=== PATIENT | male | born 1960 | race African-American/Black ===

== ENCOUNTER 2019-05-31 11:50 | Inpatient (IN) | payer BC ==
--- NOTE | 2019-05-31 12:35 | ED ---
General Adult HPI - General Chief complaint: Psychiatric Symptoms Stated complaint: EPS eval Time Seen by Provider: 05/31/19 11:53 Source: patient, family, EMS Mode of arrival: EMS Limitations: altered mental status - History of Present Illness Initial comments: Dictation was produced using [employer] dictation software. please excuse any grammatical, word or spelling errors. Chief Complaint: 58-year-old male comes in for psychiatric symptoms. History of Present Illness: 58-year-old male he was seen at outpatient clinic. The initial reason for his visit was for diabetes evaluation. Patient has rambling speech however according to the care of an urgent care patient expressed suicidal ideation. Patient denies any suicidal ideation at this time. She denies any psychiatric disease. However he has been evaluated for similar issue in the past. Patient is an unreliable historian at this time. He was sent here from [facility]. Patient has any medical complaints at this time. The ROS documented in this emergency department record has been reviewed and confirmed by me. Those systems with pertinent positive or negative responses have been documented in the HPI. All other systems are other negative and/or noncontributory. PHYSICAL EXAM: General Impression: Alert and oriented x3, not in acute distress HEENT: Normocephalic atraumatic, extra-ocular movements intact, pupils equal and reactive to light bilaterally, mucous membranes moist. Cardiovascular: Heart regular rate and rhythm, S1&S2 audible, no murmurs, rubs or gallops Chest: Lungs clear to auscultation bilaterally, no rhonchi, no wheeze, no rales Abdomen: Bowel sounds present, abdomen soft, non-tender, non-distended, no organomegaly Musculoskeletal: Pulses present and equal in all extremities, no peripheral edema Motor: no focal deficits noted Neurological: CN II-XII grossly intact, no focal motor or sensory deficits noted Skin: Intact with no visualized rashes Psych: Tangential speech ED course: 58 y Old male presents with chief complaint of suicidal ideation. Vital signs upon arrival shows heart rate of 122, rest of vital signs within acceptable limits. Physical examination concerning for psychotic symptoms. EPS requested CT imaging of the head. CT is unremarkable. Labs are grossly unremarkable. There is mild anion gap acidosis likely secondary to dehydration. Patient given intravenous fluids. Patient will be admitted to inpatient psych EPS recognition's. - Related Data Home Medications Medication Instructions Recorded Confirmed Atorvastatin [Lipitor] 40 mg PO DAILY 05/31/19 05/31/19 Dulaglutide [Trulicity] 1.5 mg SQ Q7D 05/31/19 05/31/19 Empagliflozin [Jardiance] 25 mg PO DAILY 05/31/19 05/31/19 Lisinopril 40 mg PO DAILY 05/31/19 05/31/19 Pioglitazone [Actos] 30 mg PO DAILY 05/31/19 05/31/19 Warfarin Sodium [Coumadin] 10 mg PO DAILY 05/31/19 05/31/19 metFORMIN HCL [Glucophage] 1,000 mg PO BID 05/31/19 05/31/19 Allergies Allergy/AdvReac Type Severity Reaction Status Date / Time No Known Allergies Allergy Verified 05/31/19 14:47 Review of Systems ROS Statement: Those systems with pertinent positive or pertinent negative responses have been documented in the HPI. ROS Other: All systems not noted in ROS Statement are negative. Past Medical History Past Medical History: Diabetes Mellitus General Exam Limitations: altered mental status Course Vital Signs 05/31/19 11:56 Temperature 97.8 F Pulse Rate 122 H Respiratory 22 Rate Blood Pressure 135/120 O2 Sat by Pulse 98 Oximetry Medical Decision Making - Lab Data Result diagrams: 05/31/19 15:00 05/31/19 15:00 Lab Results 05/31/19 05/31/19 05/31/19 Range/Units 12:20 12:55 15:00 WBC (3.8-10.6) k/uL RBC (4.30-5.90) m/uL Hgb (13.0-17.5) gm/dL Hct (39.0-53.0) % MCV (80.0-100.0) fL MCH (25.0-35.0) pg MCHC (31.0-37.0) g/dL RDW (11.5-15.5) % Plt Count (150-450) k/uL Neutrophils % % Lymphocytes % % Monocytes % % Eosinophils % % Basophils % % Neutrophils # (1.3-7.7) k/uL Lymphocytes # (1.0-4.8) k/uL Monocytes # (0-1.0) k/uL Eosinophils # (0-0.7) k/uL Basophils # (0-0.2) k/uL Sodium 139 (137-145) mmol/L Potassium 4.2 (3.5-5.1) mmol/L Chloride 104 (98-107) mmol/L Carbon Dioxide 19 L (22-30) mmol/L Anion Gap 16 mmol/L BUN 22 H (9-20) mg/dL Creatinine 1.03 (0.66-1.25) mg/dL Est GFR (CKD-EPI)AfAm >90 (>60 ml/min/1.73 sqM) Est GFR (CKD-EPI)NonAf 79 (>60 ml/min/1.73 sqM) Glucose 167 H (74-99) mg/dL POC Glucose (mg/dL) 200 H (75-99) mg/dL POC Glu Th[employer]eder Krupa Brewster Calcium 10.2 (8.4-10.2) mg/dL Total Bilirubin 0.7 (0.2-1.3) mg/dL AST 30 (17-59) U/L ALT 12 (4-49) U/L Alkaline Phosphatase 112 (38-126) U/L Total Protein 8.7 H (6.3-8.2) g/dL Albumin 4.9 (3.5-5.0) g/dL Urine Opiates Screen Not Detected (NotDetected) Ur Oxycodone Screen Not Detected (NotDetected) Urine Methadone Screen Not Detected (NotDetected) Ur Propoxyphene Screen Not Detected (NotDetected) Ur Barbiturates Screen Not Detected (NotDetected) U Tricyclic Antidepress Not Detected (NotDetected) Ur Phencyclidine Scrn Not Detected (NotDetected) Ur Amphetamines Screen Not Detected (NotDetected) U Methamphetamines Scrn Not Detected (NotDetected) U Benzodiazepines Scrn Detected H (NotDetected) Urine Cocaine Screen Not Detected (NotDetected) U Marijuana (THC) Screen Not Detected (NotDetected) Serum Alcohol <10 mg/dL 05/31/19 Range/Units 15:00 WBC 8.5 (3.8-10.6) k/uL RBC 5.46 (4.30-5.90) m/uL Hgb 15.7 (13.0-17.5) gm/dL Hct 49.1 (39.0-53.0) % MCV 89.9 (80.0-100.0) fL MCH 28.7 (25.0-35.0) pg MCHC 31.9 (31.0-37.0) g/dL RDW 14.0 (11.5-15.5) % Plt Count 247 (150-450) k/uL Neutrophils % 71 % Lymphocytes % 17 % Monocytes % 10 % Eosinophils % 0 % Basophils % 0 % Neutrophils # 6.0 (1.3-7.7) k/uL Lymphocytes # 1.5 (1.0-4.8) k/uL Monocytes # 0.8 (0-1.0) k/uL Eosinophils # 0.0 (0-0.7) k/uL Basophils # 0.0 (0-0.2) k/uL Sodium (137-145) mmol/L Potassium (3.5-5.1) mmol/L Chloride (98-107) mmol/L Carbon Dioxide (22-30) mmol/L Anion Gap mmol/L BUN (9-20) mg/dL Creatinine (0.66-1.25) mg/dL Est GFR (CKD-EPI)AfAm (>60 ml/min/1.73 sqM) Est GFR (CKD-EPI)NonAf (>60 ml/min/1.73 sqM) Glucose (74-99) mg/dL POC Glucose (mg/dL) (75-99) mg/dL POC Glu Thrasher Feeder ID Calcium (8.4-10.2) mg/dL Total Bilirubin (0.2-1.3) mg/dL AST (17-59) U/L ALT (4-49) U/L Alkaline Phosphatase (38-126) U/L Total Protein (6.3-8.2) g/dL Albumin (3.5-5.0) g/dL Urine Opiates Screen (NotDetected) Ur Oxycodone Screen (NotDetected) Urine Methadone Screen (NotDetected) Ur Propoxyphene Screen (NotDetected) Ur Barbiturates Screen (NotDetected) U Tricyclic Antidepress (NotDetected) Ur Phencyclidine Scrn (NotDetected) Ur Amphetamines Screen (NotDetected) U Methamphetamines Scrn (NotDetected) U Benzodiazepines Scrn (NotDetected) Urine Cocaine Screen (NotDetected) U Marijuana (THC) Screen (NotDetected) Serum Alcohol mg/dL Disposition Clinical Impression: Suicidal ideation Disposition: ADMITTED IP TO THIS HOSP Condition: Fair Referrals: None,Stated [Primary Care Provider] - 1-2 days Decision Time: 17:27
[2019-05-31 12:55] LABS: Amphetamine Screen,Urine Not Detected (NotDetected); Barbiturate Screen,Urine Not Detected (NotDetected); Benzodiazepines Screen,Urine Detected (NotDetected); Cocaine Screen,Urine Not Detected (NotDetected); Methadone Screen, Urine Not Detected (NotDetected); Opiate Screen,Urine Not Detected (NotDetected); Oxycodone Screen, Urine Not Detected (NotDetected); Phencyclidine Screen,Urine Not Detected (NotDetected); Tricyclic Antidepressant,Urine Not Detected (NotDetected); Urn Cannabinoid Scrn Not Detected (NotDetected)
[2019-05-31 12:57] LABS: Glucose,Whole Blood 200 mg/dL (75-99)
--- NOTE | 2019-05-31 15:20 | CT ---
EXAMINATION TYPE: CT brain wo con DATE OF EXAM: 05/31/2019 COMPARISON: January 25, 2011 HISTORY: PSYCHOSIS CT DLP: 1131.[address] of the brain was performed. The ventricles, basal cisterns and sulci overlying the cerebral convexities demonstrate mild enlargem ent. There is no evidence for intracranial hemorrhage or sulcal effacement. There is decreased attenuation about the periventricular white matter and deep white matter of both c erebral hemispheres, compatible with chronic small vessel ischemia. Differential diagnosis does inclu de demyelination. No mass effects are seen.No midline shift. Osseous calvarium is intact. If symptoms persist consider MRI. IMPRESSION: 1. Age related atrophic and chronic small vessel ischemic change without acute intracranial process s een at this time.
[2019-05-31 15:26] LABS: Basophils % (A) 0 %; Eosinophils % (A) 0 %; HCT 49.1 % (39.0-53.0); HGB 15.7 gm/dL (13.0-17.5); Lymphocytes # (A) 1.5 k/uL (1.0-4.8); Lymphocytes % (A) 17 %; MCH 28.7 pg (25.0-35.0); MCHC 31.9 g/dL (31.0-37.0); MCV 89.9 fL (80.0-100.0); Mean Platelet Volume 6.9; Monocytes # (A) 0.8 k/uL (0-1.0); Monocytes % (A) 10 %; Neutrophils % (A) 71 %; Platelet Count 247 k/uL (150-450); RBC 5.46 m/uL (4.30-5.90); WBC 8.5 k/uL (3.8-10.6)
[2019-05-31 15:36] LABS: ALT 12 U/L (4-49); AST 30 U/L (17-59); African American GFR (CKD) >90 (>60 ml/min/1.73 sqM); Albumin 4.9 g/dL (3.5-5.0); Alcohol <10 mg/dL; Alkaline Phosphatase 112 U/L (38-126); Anion Gap 16 mmol/L; Blood Urea Nitrogen 22 mg/dL (9-20); Calcium 10.2 mg/dL (8.4-10.2); Carbon Dioxide 19 mmol/L (22-30); Chloride 104 mmol/L (98-107); Glucose 167 mg/dL (74-99); Non-African American GFR(CKD) 79 (>60 ml/min/1.73 sqM); Potassium 4.2 mmol/L (3.5-5.1); Sodium 139 mmol/L (137-145); Total Bilirubin 0.7 mg/dL (0.2-1.3); Total Protein 8.7 g/dL (6.3-8.2)
[2019-05-31] MEDS ORDERED: SODIUM CHLORIDE 0.9% 1,000 ML IV STA (15:42)
[2019-05-31] MEDS ORDERED: MAGNESIUM HYDROXIDE 2,400 MG/10 ML CUP PO PRN (22:03)
[2019-05-31] MEDS ORDERED: ACETAMINOPHEN TAB 325 MG TAB PO PRN (22:03)
[2019-05-31] MEDS ORDERED: MAG HYDROX/AL HYDROX/SIMETH 30 ML CUP PO PRN (22:03)
[2019-06-01] MEDS: OLANZapine 10 MG VIAL IM PRN (01:00)
--- NOTE | 2019-06-01 01:15 | P.CONS ---
History of Present Illness - Reason for Consult Consult date: 06/01/19 - History of Present Illness The patient is a 58 yo M with a PMH of Type 2 DM who presented to the ED from the outpatient clinic for reported suicidal ideation. The patient was noted to be in psychosis in the ED and was admitted to the MHU. The patient was seen and evaluated at the MHU by his bedside. The patient was in acute psychosis with very disorganized and paranoid though process. He answered questions briefly aft er multiple attempts at redirecting. He reported chronic shoulder and lower back pain but denied any additional complaints. Patient underwent an extensive evaluation in the ED w/ CT brain that was unremarkable and a UTox positive for benzo with EtOH negative. Remaining laboratory evaluation revealed WBC count 8.5, gb 15.7, Na 139, K 4.2, BUN 22, Cr 1.03. Review of Systems Pertinent positives and negatives as discussed in HPI, a complete review of systems was performed and all other systems are negative. Past Medical History Past Medical History: Diabetes Mellitus Medications and Allergies Home Medications Medication Instructions Recorded Confirmed Type Atorvastatin [Lipitor] 40 mg PO DAILY 05/31/19 05/31/19 History Dulaglutide [Trulicity] 1.5 mg SQ Q7D 05/31/19 05/31/19 History Empagliflozin [Jardiance] 25 mg PO DAILY 05/31/19 05/31/19 History Lisinopril 40 mg PO DAILY 05/31/19 05/31/19 History Pioglitazone [Actos] 30 mg PO DAILY 05/31/19 05/31/19 History Warfarin Sodium [Coumadin] 10 mg PO DAILY 05/31/19 05/31/19 History metFORMIN HCL [Glucophage] 1,000 mg PO BID 05/31/19 05/31/19 History Allergies Allergy/AdvReac Type Severity Reaction Status Date / Time No Known Allergies Allergy Verified 05/31/19 22:57 Physical Exam Vitals: Vital Signs Temp Pulse Pulse Resp BP BP BP 05/31/19 21:43 97.8 F 89 18 143/99 05/31/19 21:40 97.7 F 122 H 18 134/90 05/31/19 21:19 123 H 18 135/93 05/31/19 20:01 16 144/110 05/31/19 15:00 89 18 05/31/19 11:56 97.8 F 122 H 22 135/120 Pulse Ox 05/31/19 21:43 96 05/31/19 21:40 97 05/31/19 21:19 96 05/31/19 20:01 98 05/31/19 15:00 96 05/31/19 11:56 98 Intake and Output 05/31/19 05/31/19 06/01/19 14:59 22:59 06:59 Other: Weight 97.522 kg General: non toxic, no distress, appears at stated age, obese Derm: hyperpigmented and dry skin with silverish plaques over medial aspect of legs bilaterally, warm, dry Head: atraumatic, normocephalic, symmetric Eyes: EOMI, anicteric sclera, pupils equal round reactive to light ENT: Nose and ears atraumatic, no thrush, no pharyngeal erythema Mouth: no lip lesion, mucus membranes moist Cardiovascular: S1S2 reg, tachycardic, no murmur, positive posterior tibial pulse bilateral, no edema, capillary refill less than 2 seconds Lungs: CTA bilateral, no rhonchi, no rales , no accessory muscle use Abdominal: soft, nontender to palpation, no guarding, no appreciable organomegaly, normal bowel sounds Ext: no gross muscle atrophy, muscle strength 5 out of 5 in all 4 extremities grossly, no contractures, Neuro: Unable to perform neuro examination since patient not following all commands Psych: Disorganized thought process with tangentiality and flight of ideas, unable to follow all commands Results CBC & Chem 7: 05/31/19 15:00 05/31/19 15:00 Labs: Abnormal Lab Results - Last 24 Hours (Table) 05/31/19 05/31/19 05/31/19 Range/Units 12:20 12:55 15:00 Carbon Dioxide 19 L (22-30) mmol/L BUN 22 H (9-20) mg/dL Glucose 167 H (74-99) mg/dL POC Glucose (mg/dL) 200 H (75-99) mg/dL Total Protein 8.7 H (6.3-8.2) g/dL U Benzodiazepines Scrn Detected H (NotDetected) Assessment and Plan Plan: Type 2 DM -LSS with blood glucose monitoring -Will start Levemir 10 U qhs -Hold oral and injectable home med for now Coumadin use as per history -Patient unable to specify reason with no additional PMH listed -C/w Coumadin for now -Attempt to obtain collateral information HTN -C/w home meds Psychosis -As per psychiatry Thank you for allowing us to participate in the care of this patient. We will follow peripherally. Do not hesitate to contact us with questions. Someone can be reached from the [facility] hospitalist group at all hours of the day at [phone].
[2019-06-01 07:56] LABS: Glucose,Whole Blood 115 mg/dL (75-99)
[2019-06-01] MEDS: INSULIN ASPART (NovoLOG) 100 UNIT/ML VIAL SQ SCH ×3 (08:05→17:47)
[2019-06-01] MEDS: ATORVASTATIN 40 MG TAB PO SCH (08:06)
[2019-06-01] MEDS: LISINOPRIL 20 MG TAB PO SCH (08:06)
[2019-06-01] MEDS: EMPAGLIFLOZIN 25 MG PO SCH (08:06)
[2019-06-01] MEDS ORDERED: PIOGLITAZONE 30 MG TAB PO SCH (09:00)
[2019-06-01] MEDS ORDERED: metFORMIN 500 MG TAB PO SCH (09:00)
[2019-06-01 09:37] LABS: Prothrombin Time 10.7 sec (9.0-12.0)
[2019-06-01] MEDS ORDERED: OLANZapine 10 MG VIAL IM STA (12:34)
[2019-06-01 12:42] LABS: Glucose,Whole Blood 152 mg/dL (75-99)
--- NOTE | 2019-06-01 14:50 | P.HP ---
Psychiatric H&P - . H&P Date: 06/01/19 History & Physical: DATE OF SERVICE: [06/01/2019] IDENTIFYING DATA: This patient is a [58]-year-old single male who was admitted to the mental health unit through ER. HISTORY OF PRESENT ILLNESS: History of Present Illness The patient is a 58 yo M with a PMH of Type 2 DM who presented to the ED from the outpatient clinic for reported suicidal ideation. The patient was noted to be in psychosis in the ED and was admitted to the MHU. The patient was seen and evaluated at the MHU. The patient was in acute psychosis with very disorganized and paranoid though process. He answered questions briefly after multiple attempts at redirecting. He reported chronic shoulder and lower back pain but denied any additional complaints. Patient underwent an extensive evaluation in the ED w/ CT brain that was unremarkable and a UTox positive for benzo with EtOH negative. The patient is a poor historian and limited information was available in the EMR. The patient was not able to answer any questions appropriately and had tangential and rambling speech with some intake echolalia. The patient appears to be very confused and is easily agitated and difficult to redirect. The patient reports poor sleep but could not elaborate. He denies any auditory or visual hallucination but appears to be responding to internal cues and has been talking to himself. The patient denies any active suicidal or homicidal ideations at this time. PAST PSYCHIATRIC HISTORY: . Past hospitalizations: The patient reports that he was hospitalized once before in the past but could not elaborate Suicidal attempts: The patient reports history of fund previous suicidal attempt by overdose in the past but could not elaborate anymore Medications: Unknown PAST MEDICAL HISTORY: [Diabetes mellitus type 2, chronic shoulder and lower back pain]. ALLERGIES: [No known drug allergies]. CHEMICAL DEPENDENCY HISTORY: [Unknown although the drug screen was positive for benzodiazepines but negative for everything else]. Rehab: Unknown FAMILY PSYCHIATRIC HISTORY: [Unknown]. FAMILY CHEMICAL DEPENDENCY HISTORY:[ Unknown]. LEGAL HISTORY: Unknown . SOCIAL HISTORY: The patient reports living by himself and mentioned his sister but was not able to give any more information.. MENTAL STATUS EXAM: [The patient is a 58 years or Afro-[place] male was confused and disoriented to time and place but was able to tell his name. The patient what appeared to be hyperverbal and has rapid rambling and tangential in speech. He shows echolalia. He had poor eye contact. He appears to be restless and shows some psychomotor agitation during the interview. The patient denies any auditory or visual hallucinations but appears to be responding to internal cues and appears very preoccupied. The patient denies any active suicidal or homicidal ideations at this time the patient showed poor concentration and short attention span. The patient shows lack of insight and impaired judgment.]. IMPRESSIONS: Psychosis NOS PLAN: []. Admit to the mental health unit. At this time patient continues to meet the criteria for inpatient psychiatric admission. The patient signed for voluntary admission. Placed on suicidal precautions 1:1 support and psychotherapy Start [Zyprexa situs 5 mg by mouth twice a day. The patient was also placed on Zyprexa\injectable 5 mg IM twice a day when necessary. The patient was informed on the risks benefits and side effects of the medication and verbally consented to taking the medications. He signed a med consent form that were placed in the chart. NRT not needed since the patient is not a smoker. Social work on board for discharge planning. We'll attempt to contact family and the patient with patient's permission to get more information and history. Consult was placed for pleater for history and physical..] Milieu therapy including PT, OT and GT. Adjust medications and monitor closely for the patient's symptoms getting worse and /or possible side effects on medications. Allergies Allergy/AdvReac Type Severity Reaction Status Date / Time No Known Allergies Allergy Verified 05/31/19 22:57 Vital Signs Temp 97.8 F 05/31/19 21:43 Pulse 99 06/01/19 08:00 Resp 18 06/01/19 08:00 BP 132/95 06/01/19 08:00 Pulse Ox 96 05/31/19 21:43 Intake & Output 05/31/19 06/01/19 06/01/19 18:59 06:59 18:59 Weight 97.522 kg Laboratory Last Values WBC 8.5 k/uL (3.8-10.6) 05/31/19 15:00 RBC 5.46 m/uL (4.30-5.90) 05/31/19 15:00 Hgb 15.7 gm/dL (13.0-17.5) 05/31/19 15:00 Hct 49.1 % (39.0-53.0) 05/31/19 15:00 MCV 89.9 fL (80.0-100.0) 05/31/19 15:00 MCH 28.7 pg (25.0-35.0) 05/31/19 15:00 MCHC 31.9 g/dL (31.0-37.0) 05/31/19 15:00 RDW 14.0 % (11.5-15.5) 05/31/19 15:00 Plt Count 247 k/uL (150-450) 05/31/19 15:00 Neutrophils % 71 % 05/31/19 15:00 Lymphocytes % 17 % 05/31/19 15:00 Monocytes % 10 % 05/31/19 15:00 Eosinophils % 0 % 05/31/19 15:00 Basophils % 0 % 05/31/19 15:00 Neutrophils # 6.0 k/uL (1.3-7.7) 05/31/19 15:00 Lymphocytes # 1.5 k/uL (1.0-4.8) 05/31/19 15:00 Monocytes # 0.8 k/uL (0-1.0) 05/31/19 15:00 Eosinophils # 0.0 k/uL (0-0.7) 05/31/19 15:00 Basophils # 0.0 k/uL (0-0.2) 05/31/19 15:00 PT 10.7 sec (9.0-12.0) 06/01/19 08:35 INR 1.0 (<1.2) 06/01/19 08:35 Sodium 139 mmol/L (137-145) 05/31/19 15:00 Potassium 4.2 mmol/L (3.5-5.1) 05/31/19 15:00 Chloride 104 mmol/L (98-107) 05/31/19 15:00 Carbon Dioxide 19 mmol/L (22-30) L 05/31/19 15:00 Anion Gap 16 mmol/L 05/31/19 15:00 BUN 22 mg/dL (9-20) H 05/31/19 15:00 Creatinine 1.03 mg/dL (0.66-1.25) 05/31/19 15:00 Est GFR (CKD-EPI)AfAm >90 (>60 ml/min/1.73 sqM) 05/31/19 15:00 Est GFR (CKD-EPI)NonAf 79 (>60 ml/min/1.73 sqM) 05/31/19 15:00 Glucose 167 mg/dL (74-99) H 05/31/19 15:00 POC Glucose (mg/dL) 115 mg/dL (75-99) H 06/01/19 07:54 POC Glu [place] [employer] Member ID Indira English 06/01/19 07:54 Calcium 10.2 mg/dL (8.4-10.2) 05/31/19 15:00 Total Bilirubin 0.7 mg/dL (0.2-1.3) 05/31/19 15:00 AST 30 U/L (17-59) 05/31/19 15:00 ALT 12 U/L (4-49) 05/31/19 15:00 Alkaline Phosphatase 112 U/L (38-126) 05/31/19 15:00 Total Protein 8.7 g/dL (6.3-8.2) H 05/31/19 15:00 Albumin 4.9 g/dL (3.5-5.0) 05/31/19 15:00 Triglycerides 85 mg/dL (<150) 06/01/19 08:35 Cholesterol 238 mg/dL (<200) H 06/01/19 08:35 LDL Cholesterol, Calc 157 mg/dL (0-99) H 06/01/19 08:35 HDL Cholesterol 64 mg/dL (40-60) H 06/01/19 08:35 TSH 1.270 mIU/L (0.465-4.680) 06/01/19 08:35 Urine Opiates Screen Not Detected (NotDetected) 05/31/19 12:20 Ur Oxycodone Screen Not Detected (NotDetected) 05/31/19 12:20 Urine Methadone Screen Not Detected (NotDetected) 05/31/19 12:20 Ur Propoxyphene Screen Not Detected (NotDetected) 05/31/19 12:20 Ur Barbiturates Screen Not Detected (NotDetected) 05/31/19 12:20 U Tricyclic Antidepress Not Detected (NotDetected) 05/31/19 12:20 Ur Phencyclidine Scrn Not Detected (NotDetected) 05/31/19 12:20 Ur Amphetamines Screen Not Detected (NotDetected) 05/31/19 12:20 U Methamphetamines Scrn Not Detected (NotDetected) 05/31/19 12:20 U Benzodiazepines Scrn Detected (NotDetected) H 05/31/19 12:20 Urine Cocaine Screen Not Detected (NotDetected) 05/31/19 12:20 U Marijuana (THC) Screen Not Detected (NotDetected) 05/31/19 12:20 Serum Alcohol <10 mg/dL 05/31/19 15:00 06/01/19 12:30 06/01/19 14:25 06/01/19 14:36 06/01/19 14:40
[2019-06-01 17:52] LABS: Hemoglobin A1C 8.4 % (4.0-6.0)
[2019-06-01 17:53] LABS: Glucose,Whole Blood 137 mg/dL (75-99)
[2019-06-01] MEDS ORDERED: WARFARIN 5 MG TAB PO ONE (18:00)
[2019-06-01 20:18] LABS: Glucose,Whole Blood 134 mg/dL (75-99)
[2019-06-01] MEDS: INSULIN DETEMIR (LEVEMIR) 100 UNIT/ML SYR SQ SCH (20:27)
[2019-06-01] MEDS: OLANZapine ODT 10 MG TAB PO SCH (20:27)
[2019-06-02 07:52] LABS: Glucose,Whole Blood 160 mg/dL (75-99)
[2019-06-02 08:20] LABS: Prothrombin Time 10.5 sec (9.0-12.0)
[2019-06-02] MEDS: INSULIN ASPART (NovoLOG) 100 UNIT/ML VIAL SQ SCH ×3 (08:20→18:51)
[2019-06-02] MEDS: LISINOPRIL 20 MG TAB PO SCH (09:53)
[2019-06-02] MEDS: ATORVASTATIN 40 MG TAB PO SCH (09:53)
[2019-06-02] MEDS: EMPAGLIFLOZIN 25 MG PO SCH (09:54)
[2019-06-02 12:53] LABS: Glucose,Whole Blood 137 mg/dL (75-99)
--- NOTE | 2019-06-02 13:01 | P.PN ---
Subjective Progress Note Date: 06/02/19 Chief complaint: "Ready to go home" Subjective: The patient has been seen today as follow-up, chart reviewed, case discussed with the treatment team. The patient reports of feeling better today. He remai anushka confused and disoriented and has difficulty carrying on conversations. The patient reports good sleep last night and reports good appetite. Patient has been going to selected groups and other unit activities. His speech remained tangential and rapid but is a little more redirectable than yesterday. The patient is alert and oriented to self and time and date but thought that he was locked up and was behind bars. He admitted to auditory hallucinations described as guarded whispering in his years. He denies any active suicidal or homicidal ideations at this time. He remains delusional and paranoid but could not specify. The patient has been more redirectable and does not need one to one anymore. The patient is compliant with his medications and denies any adverse reactions. Objective - Vital Signs Vital signs: Vital Signs Temp 98.7 F 06/02/19 09:56 Pulse 107 H 06/02/19 09:56 Resp 18 06/02/19 09:56 BP 130/87 06/02/19 09:56 Pulse Ox 96 05/31/19 21:43 - Exam Objective: Vitals has been reviewed. Mental status examination; Appearance: The patient appears stated age, adequately groomed and dressed, Gait/posture: Normal gait, Normal arm swinging: No abnormal movements. Attitude and behavior: Pleasant and cooperative and has good eye contact Motor activity: Show psychomotor agitation Speech: Rapid and tangential and difficult to redirect. Mood: Good Affect: Expanded Thought form: Disorganized Thought content: Denies any suicidal or homicidal ideations Perception: Denies any visual hallucinations but reports auditory hallucinations Orientation: Patient patient was foriented to time place person. Insight: Patient has poor insight about his psychiatric disorder. Judgment: Patient has impaired judgment about his psychiatric treatment. - Labs CBC & Chem 7: 05/31/19 15:00 05/31/19 15:00 Labs: Abnormal Lab Results - Last 24 Hours (Table) 06/01/19 06/01/19 06/01/19 Range/Units 08:35 17:45 20:16 POC Glucose (mg/dL) 137 H 134 H (75-99) mg/dL Hemoglobin A1c 8.4 H (4.0-6.0) % 06/02/19 Range/Units 07:48 POC Glucose (mg/dL) 160 H (75-99) mg/dL Hemoglobin A1c (4.0-6.0) % Assessment and Plan Assessment: Psychosis NOS Plan: PLAN: []. Admit to the mental health unit. At this time patient continues to meet the criteria for inpatient psychiatric admission. 1:1 support and psychotherapy Continue Zyprexa Zydis 5 mg by mouth twice a day. NRT not needed since the patient is not a smoker. Social work on board for discharge planning. We'll attempt to contact family and the patient with patient's permission to get more information and history. Milieu therapy including PT, OT and GT. Adjust medications and monitor closely for the patient's symptoms getting worse and /or possible side effects on medications.
--- NOTE | 2019-06-02 16:23 | P.CNNES ---
History of Present Illness Consult date: 06/02/19 Requesting physician: Yue Ch Reason for Consult: Altered mental status, no previous history of MH. History of Present Illness: Patient is a 58-year-old male with no significant past psychiatric history, was admitted to mental health unit for suicidal ideation, as a transfer from outpatient [facility]. Patient was noted to have some altered mental status which prompted this neurology consultation. According to the nurse report, patient has been acting psychotic, talking continuously, rambling, speaking tangential. Yesterday he was walking strip naked, ripping stuff from the cuenca, couldn't get redirected. He was talking with word salad, walking and pacing up and down the hallways. Today he appears to be slightly better and was able to provide history. Patient states that he hears voices all the times. When I asked, what does he hear, states to "destroy the planet". He states that he hears his mom's voice every morning which is the gods voice. When he is silent, concentrating on nothing, is fine. He frequently starts talking tangential, with poor content, flight of ideas. He states he has no children. Computed tomography scan of the head showed age-related atrophic and chronic small vessel ischemic changes without acute intracranial process seen at this time. Patient's urine drug screen is positive for benzodiazepine, hemoglobin A1c 8.4. Electrolytes and renal functions are normal. Liver functions normal. Cholesterol is 238, LDL 157, HDL 64. TSH is normal. PT/INR normal. CBC normal. Review of Systems As above. Patient denies any neck pain, back pain, headache, double vision, loss of vision. Denies any numbness tingling focal weakness. Denies chest pain shortness of breath. Past Medical History Past Medical History: Diabetes Mellitus Medications and Allergies Home Medications Medication Instructions Recorded Confirmed Type Atorvastatin [Lipitor] 40 mg PO DAILY 05/31/19 05/31/19 History Dulaglutide [Trulicity] 1.5 mg SQ Q7D 05/31/19 05/31/19 History Empagliflozin [Jardiance] 25 mg PO DAILY 05/31/19 05/31/19 History Lisinopril 40 mg PO DAILY 05/31/19 05/31/19 History Pioglitazone [Actos] 30 mg PO DAILY 05/31/19 05/31/19 History Warfarin Sodium [Coumadin] 10 mg PO DAILY 05/31/19 05/31/19 History metFORMIN HCL [Glucophage] 1,000 mg PO BID 05/31/19 05/31/19 History Allergies Allergy/AdvReac Type Severity Reaction Status Date / Time No Known Allergies Allergy Verified 05/31/19 22:57 Physical Examination - Vital Signs Vital Signs: Vital Signs Temp Pulse Resp BP 06/02/19 09:56 98.7 F 107 H 18 130/87 06/01/19 20:30 80 114/73 On examination patient is a late middle aged [place] male, who appears to be very pleasant, hyperverbal, impaired concentration, attention, often talks tangential, with loose associations, alevism hallucinations. Patient has no aphasia, or dysarthria. He can name and repeat very well. Oriented 3, knows that he is in [facility] in [facility]. He knows it is , May 2019 and that he is in [facility] and the name of the current president. There is no carotid bruit or murmur. No peripheral edema. On cranial ex amination pupils are round and reactive to light, visual morgan are full on confrontation, extraocular muscles intact with no nystagmus. His face is symmetric and tongue protrudes the midline. Palatal elevation and sensation normal. On muscle strength testing there is no drift and the strength is normal in arms and legs. Reflexes are symmetric and plantars downgoing, sensory to touch is equal no neglect. No ataxia for [id number] testing. Tone and bulk of muscles normal. Gait is normal. Results - Laboratory Findings CBC and BMP: 05/31/19 15:00 05/31/19 15:00 Abnormal Lab Findings: Abnormal Labs 05/31/19 05/31/19 05/31/19 12:20 12:55 15:00 Carbon Dioxide 19 L BUN 22 H Glucose 167 H POC Glucose (mg/dL) 200 H Hemoglobin A1c Total Protein 8.7 H Cholesterol LDL Cholesterol, Calc HDL Cholesterol U Benzodiazepines Scrn Detected H 06/01/19 06/01/19 06/01/19 07:54 08:35 08:35 Carbon Dioxide BUN Glucose POC Glucose (mg/dL) 115 H Hemoglobin A1c 8.4 H Total Protein Cholesterol 238 H LDL Cholesterol, Calc 157 H HDL Cholesterol 64 H U Benzodiazepines Scrn 06/01/19 06/01/19 06/01/19 12:40 17:45 20:16 Carbon Dioxide BUN Glucose POC Glucose (mg/dL) 152 H 137 H 134 H Hemoglobin A1c Total Protein Cholesterol LDL Cholesterol, Calc HDL Cholesterol U Benzodiazepines Scrn 06/02/19 06/02/19 07:48 12:46 Carbon Dioxide BUN Glucose POC Glucose (mg/dL) 160 H 137 H Hemoglobin A1c Total Protein Cholesterol LDL Cholesterol, Calc HDL Cholesterol U Benzodiazepines Scrn Assessment and Plan Assessment: * Altered mental status, likely related to acute psychosis. Patient appears to be in a manic stage, with auditory hallucinations, tangential thoughts, flight of ideas. Neurological examination is completely nonfocal. Patient is fully oriented. No signs of encephalopathy. Plan: * Patient's history and examination does not point towards any neurological process. No other neurological workup indicated. * Treatment of psychosis as per patient psychiatrist. * May consider checking for B12, folate, JOHN and RPR. * We will sign off. Please feel free to reconsult neurology if there is any other questions.
[2019-06-02] MEDS: OLANZapine ODT 5 MG TAB PO PRN (17:39)
[2019-06-02 17:43] LABS: Glucose,Whole Blood 185 mg/dL (75-99)
[2019-06-02] MEDS: WARFARIN 7.5 MG TAB PO ONE ×2 (17:43→19:52)
[2019-06-02] MEDS ORDERED: HALOPERIDOL 5 MG TAB PO STA (19:45)
[2019-06-02 20:20] LABS: Glucose,Whole Blood 153 mg/dL (75-99)
[2019-06-02] MEDS: INSULIN DETEMIR (LEVEMIR) 100 UNIT/ML SYR SQ SCH (21:20)
[2019-06-02] MEDS: OLANZapine ODT 10 MG TAB PO SCH (21:21)
[2019-06-02] MEDS ORDERED: diphenhydrAMINE ELIXIR 25 MG/10 ML CUP PO PRN (22:00)
[2019-06-03 07:56] LABS: Glucose,Whole Blood 134 mg/dL (75-99)
[2019-06-03] MEDS: LISINOPRIL 20 MG TAB PO SCH (08:14)
[2019-06-03] MEDS: INSULIN ASPART (NovoLOG) 100 UNIT/ML VIAL SQ SCH ×3 (08:14→18:04)
[2019-06-03] MEDS: EMPAGLIFLOZIN 25 MG PO SCH (08:14)
[2019-06-03] MEDS: ATORVASTATIN 40 MG TAB PO SCH (08:14)
[2019-06-03 09:28] LABS: Prothrombin Time 10.8 sec (9.0-12.0)
[2019-06-03 12:49] LABS: Glucose,Whole Blood 149 mg/dL (75-99)
--- NOTE | 2019-06-03 16:22 | P.PN ---
Progress Note - Text Progress Note Date: 06/03/19 Interval History: Patient was seen taking part in group today and was with a one-to-one sitter and was agreeable to speak to designer writer in the office. Patient appeared to be slightly more organized in his thought process however had a flight of ideas and rambled. Patient also appeared to be intrusive with poor boundaries and took off his socks and laid them on the floor in the office as patient was speaking to designer writer. Patient had multiple thoughts and was illogical at times. Patient was alert and oriented 3 however was not able to spell "world" backwards. He states that he is having poor sleep and having racing thoughts at night. Patient claims to have fair energy good appetite and has been going to groups. He was not able to elaborate on what he is learning the groups. At this time patient denies any suicidal or homical ideations, intent or plan. Patient admitted to auditory hallucinations. He denies any visual hallucinations. Patient denies any side effects from the medications and has been compliant with meds. Patient was agreeable to be started on Depakote at this time. Mental Status Exam: General Appearance: Patient appears to be stated age is alert, pleasant, attempts to cooperate. Patient is in hospital gown and has fair hygiene and grooming. Behavior: Patient is seated without any agitated behavior. Patient is intrusive and inappropriate at times. Speech: Patient's speech is fluent and hyperverbal. Mood/Affect: Mood is improving mildly, affect is congruent Suicidality/Homicidality: Patient denies having any suicidal or homicidal ideation intent or plan. Perceptions: Patient denies any auditory or visual hallucinations. Though content/process: Generally rambled physiological and inappropriate at times. Patient has difficulties with boundaries and is intrusive. Tangential/circumstantial in thought process. Memory and concentration: AOX3, grossly intact for the purposes of this session, could not spell "world" backwards Judgment and insight: Poor, mildly improving Assessment Mood disorder unspecified, rule out due to a general medical condition Plan: -Patient continues to meet criteria for inpatient psychiatric admission for symptom stabilization and safety. Patient has signed adult voluntary form and medication consent and was placed in patient's chart. -At this time patient is exhibiting manic like features including flight of ideas, intrusiveness and hyperverbal speech. -Medications: Will continue with Zyprexa 10 mg daily at bedtime for mood stabilization/psychosis. Will add Depakote ER 500 mg daily at bedtime for mood stabilization with plan to titrate up as needed. -Appreciated neurology recommendations. Will order RPR, B12 and folic acid levels for tomorrow. -Encouraged group participation -CT of the head on admission showed chronic small vessel ischemia. -When necessary Zyprexa IM and PO for agitation/aggression. -NRT -not need this patient does not smoke -SW on board for discharge planning.
[2019-06-03 17:39] LABS: Glucose,Whole Blood 173 mg/dL (75-99)
[2019-06-03] MEDS ORDERED: WARFARIN 7.5 MG TAB PO ONE (18:00)
[2019-06-03 19:55] LABS: Glucose,Whole Blood 211 mg/dL (75-99)
[2019-06-03] MEDS: OLANZapine ODT 10 MG TAB PO SCH (20:01)
[2019-06-03] MEDS: DIVALPROEX ER 500 MG TAB.ER.24H PO SCH (20:01)
[2019-06-03] MEDS: INSULIN DETEMIR (LEVEMIR) 100 UNIT/ML SYR SQ SCH (20:46)
[2019-06-04] MEDS: OLANZapine ODT 5 MG TAB PO PRN (02:19)
[2019-06-04 07:58] LABS: Glucose,Whole Blood 89 mg/dL (75-99)
[2019-06-04] MEDS: INSULIN ASPART (NovoLOG) 100 UNIT/ML VIAL SQ SCH ×3 (08:00→17:53)
[2019-06-04 09:46] LABS: INR 1.1 (<1.2); Prothrombin Time 11.5 sec (9.0-12.0)
[2019-06-04] MEDS: EMPAGLIFLOZIN 25 MG PO SCH (10:04)
[2019-06-04] MEDS: LISINOPRIL 20 MG TAB PO SCH (10:04)
[2019-06-04] MEDS: ATORVASTATIN 40 MG TAB PO SCH (10:04)
--- NOTE | 2019-06-04 11:54 | P.PN ---
Progress Note - Text Progress Note Date: 06/04/19 Interval History: Patient was seen taking part in group today and doing activities and continues to be with a one-to-one sitter. Patient was agreeable to speak to senior copywriter in the office. Patient appeared to have a mildly improved affect and continues to have a flight of ideas and rambling at times. Patient also has been noted to be confabulating according to staff members about different stories from his life. Patient was more directable today and claims that he is trying to interact with others on the unit and been going to groups. Patient had multiple thoughts and was illogical at times however this has improved mildly. Patient was alert and oriented 3 today. He states that he slept better last night and has been taking the Depakote and Zyprexa as ordered. He denies any side effects at this time. Patient claims to have fair energy good appetite. He states that he will be ca lling his family to come and visit him over the weekend. At this time patient denies any suicidal or homical ideations, intent or plan. Patient admitted to auditory hallucinations. He denies any visual hallucinations. Patient denies any side effects from the medications and has been compliant with meds. Mental Status Exam: General Appearance: Patient appears to be stated age is alert, pleasant, attempts to cooperate. Patient is in hospital gown and has fair hygiene and grooming. Behavior: Patient is seated without any agitated behavior. Patient is less intrusive and inappropriate today. Speech: Patient's speech is fluent and hyperverbal. Mood/Affect: Mood is improving mildly, affect is congruent Suicidality/Homicidality: Patient denies having any suicidal or homicidal ideation intent or plan. Perceptions: Patient denies any auditory or visual hallucinations. Though content/process: Generally rambled during conversation. Tangential/circumstantial in thought process. Confabulated. Memory and concentration: AOX3, correctly listed the days of the week backwards, has fair fund of knowledge, improving judgment/abstraction. 2 out of 3 words in memory recall after 5 minutes. Was noted to perseverate during cognitive exam. Judgment and insight: Poor, mildly improving Assessment Mood disorder unspecified, rule out due to a general medical condition Plan: -Patient continues to meet criteria for inpatient psychiatric admission for symptom stabilization and safety. Patient has signed adult voluntary form and medication consent and was placed in patient's chart. -Medications: Will continue with Zyprexa 10 mg daily at bedtime for mood stabilization/psychosis. Will continue with Depakote ER 500 mg daily at bedtime for mood stabilization with plan to titrate up as needed over the weekend. -Appreciated neurology recommendations. -Currently awaiting RPR, B12 and folic acid levels -Encouraged group participation -CT of the head on admission showed chronic small vessel ischemia. -When necessary Zyprexa IM and PO for agitation/aggression. -NRT -not need this patient does not smoke -SW on board for discharge planning. Asked patient to reach out to his family to visit him over the weekend and social work professor to touch base on Friday with family to assess for baseline.
[2019-06-04 12:42] LABS: Glucose,Whole Blood 122 mg/dL (75-99)
[2019-06-04 16:22] LABS: Folate, Serum >24.0 ng/mL
[2019-06-04 17:34] LABS: Glucose,Whole Blood 124 mg/dL (75-99)
[2019-06-04] MEDS ORDERED: WARFARIN 10 MG TAB PO ONE (18:00)
[2019-06-04 20:26] LABS: Glucose,Whole Blood 188 mg/dL (75-99)
[2019-06-04] MEDS: INSULIN DETEMIR (LEVEMIR) 100 UNIT/ML SYR SQ SCH (20:41)
[2019-06-04] MEDS: OLANZapine ODT 10 MG TAB PO SCH (20:42)
[2019-06-04] MEDS: DIVALPROEX ER 500 MG TAB.ER.24H PO SCH (20:42)
[2019-06-05 07:40] LABS: Glucose,Whole Blood 110 mg/dL (75-99)
[2019-06-05] MEDS: INSULIN ASPART (NovoLOG) 100 UNIT/ML VIAL SQ SCH ×3 (08:09→17:51)
[2019-06-05 08:51] LABS: INR 1.4 (<1.2); Prothrombin Time 14.1 sec (9.0-12.0)
[2019-06-05] MEDS: OLANZapine 10 MG VIAL IM PRN (09:03)
[2019-06-05] MEDS: ATORVASTATIN 40 MG TAB PO SCH (09:55)
[2019-06-05] MEDS: LISINOPRIL 20 MG TAB PO SCH (09:55)
[2019-06-05] MEDS: EMPAGLIFLOZIN 25 MG PO SCH (09:56)
[2019-06-05 12:42] LABS: Glucose,Whole Blood 193 mg/dL (75-99)
--- NOTE | 2019-06-05 16:38 | P.PN ---
Progress Note - Text Progress Note Date: 06/05/19 Subjective: Patient was seen today as a cross coverage for . The patient was evaluated, chart reviewed, case discussed with the treatment team. Patient reported good sleep, and according to chart review patient slept about 7 hours last night. Appetite was reported as "good ". Patient has not been going to groups and other unit activities. The patient is compliant with his medications and denies any adverse reactions. Patient denies feeling depressed, or suicidal. Reports last time he was feeling suicidal and was more than a year ago. He reports continued to have auditory hallucinations like noise or somebody breathing in his ears. He reports didn't hear any voices since last night, and he denies any commanding auditory hallucinations. Reports sometimes having paranoid ideation which was increased over the last month. He denies any homicidal ideation. Denies physical symptoms including chest pain or shortness of breath Objective: Vitals has been reviewed. General Appearance: Patient appears to be stated age is alert, pleasant, attempts to cooperate. Behavior: Patient is seated without any agitated behavior. Patient is less intrusive and inappropriate today. Speech: Patient's speech is fluent and hyperverbal. Mood/Affect: Mood is improving mildly, affect is congruent Suicidality/Homicidality: Patient denies having any suicidal or homicidal ideation intent or plan. Perceptions: Reports auditory hallucinations, but denies visual hallucinations. Though content/process: Generally rambled during conversation. Tangential/circumstantial in thought process. Confabulated. Memory and concentration: AOX3, correctly listed the days of the week backwards, has fair fund of knowledge, improving judgment/abstraction. 2 out of 3 words in memory recall after 5 minutes. Was noted to perseverate during cognitive exam. Judgment and insight: Poor, mildly improving Assessment: Mood disorder unspecified, rule out due to a general medical condition Plan: Continue inpatient level of care due to need for further stabilization on medications Precautions: Continue 15 minutes check for safety. Consider medical consultation if any acute medical issues arise. Provide the patient individual, group therapy, substance use disorder counseling to give better insight and learn coping skills. Medications: Continue Zyprexa 10 mg at bedtime for mood stabilization and psychotic symptoms. Continue Depakote 500 mg at bedtime for mood stabilization. Discharge patient to OUTPATIENT services upon a stabilization
[2019-06-05 17:47] LABS: Glucose,Whole Blood 130 mg/dL (75-99)
[2019-06-05] MEDS ORDERED: WARFARIN 10 MG TAB PO ONE (18:00)
[2019-06-05 20:36] LABS: Glucose,Whole Blood 183 mg/dL (75-99)
[2019-06-05] MEDS: DIVALPROEX ER 500 MG TAB.ER.24H PO SCH (21:50)
[2019-06-05] MEDS: OLANZapine ODT 10 MG TAB PO SCH (21:50)
[2019-06-05] MEDS: INSULIN DETEMIR (LEVEMIR) 100 UNIT/ML SYR SQ SCH (21:50)
[2019-06-06] MEDS: OLANZapine ODT 5 MG TAB PO PRN (06:38)
[2019-06-06 07:58] LABS: Glucose,Whole Blood 118 mg/dL (75-99)
[2019-06-06] MEDS: INSULIN ASPART (NovoLOG) 100 UNIT/ML VIAL SQ SCH ×3 (08:23→17:47)
[2019-06-06 09:20] LABS: INR 1.7 (<1.2); Prothrombin Time 16.8 sec (9.0-12.0)
[2019-06-06] MEDS: LISINOPRIL 20 MG TAB PO SCH (10:14)
[2019-06-06] MEDS: ATORVASTATIN 40 MG TAB PO SCH (10:14)
[2019-06-06] MEDS: EMPAGLIFLOZIN 25 MG PO SCH (10:15)
[2019-06-06 12:43] LABS: Glucose,Whole Blood 111 mg/dL (75-99)
--- NOTE | 2019-06-06 13:09 | P.PN ---
Progress Note - Text Progress Note Date: 06/06/19 Subjective: Patient was seen today as a cross coverage for . The patient was evaluated, chart reviewed, case discussed with the treatment team. Patient resented to some degree hyperactive and reports his mood is "great, super energetic", and he was talkative was some degree of pressured speech and flight of ideas. No disorganized thoughts or behavior been noticed or reported. The patient was not tangential or circumstantial. He was fully oriented to place, person, time, and situation, and he denies depression, suicidal or homicidal ideation. No anger problems been noticed or reported, and no violent or threatening behavior. Patient denies any visual hallucinations, but reports sometimes hearing vague voices but not commanding. He is taking his medications at the denies adverse reaction. He reports good sleep last night and he denies any appetite problems Objective: Vitals has been reviewed. General Appearance: Patient appears to be stated age is alert, pleasant, attempts to cooperate. Behavior: Patient is seated without any agitated behavior. Patient is less intrusive and inappropriate today. Speech: Patient's speech is fluent and hyper verbal. Mood/Affect: Mood is improving mildly, affect is congruent Suicide/Homicide: Patient denies having any suicidal or homicidal ideation intent or plan. Perceptions: Reports auditory hallucinations, but denies visual hallucinations. Though content/process: Generally rambled during conversation. Flight of ideas, nothing tangential or circumstantial. Memory and concentration: AOX3, has fair fund of knowledge, improving judgment/abstraction. Judgment and insight: improving Assessment: Mood disorder unspecified, rule out due to a general medical condition Plan: Continue inpatient level of care due to need for further stabilization on medications Precautions: Continue 15 minutes check for safety. Consider medical consultation if any acute medical issues arise. Provide the patient individual, group therapy, substance use disorder counseling to give better insight and learn coping skills. Medications: Increase Zyprexa 15 mg at bedtime for mood stabilization and psychotic symptoms. Continue Depakote 500 mg at bedtime for mood stabilization. Discharge patient to OUTPATIENT services upon a stabilization
[2019-06-06 17:47] LABS: Glucose,Whole Blood 124 mg/dL (75-99)
[2019-06-06] MEDS ORDERED: WARFARIN 7.5 MG TAB PO ONE (18:00)
[2019-06-06 20:13] LABS: Glucose,Whole Blood 208 mg/dL (75-99)
[2019-06-06] MEDS: INSULIN DETEMIR (LEVEMIR) 100 UNIT/ML SYR SQ SCH (21:21)
[2019-06-06] MEDS: OLANZapine 10 MG TAB PO SCH (21:22)
[2019-06-06] MEDS: DIVALPROEX ER 500 MG TAB.ER.24H PO SCH (21:22)
[2019-06-07 07:53] LABS: Glucose,Whole Blood 112 mg/dL (75-99)
[2019-06-07] MEDS: INSULIN ASPART (NovoLOG) 100 UNIT/ML VIAL SQ SCH ×3 (08:13→17:45)
[2019-06-07 08:20] LABS: INR 1.9 (<1.2)
[2019-06-07] MEDS: ATORVASTATIN 40 MG TAB PO SCH (09:53)
[2019-06-07] MEDS: EMPAGLIFLOZIN 25 MG PO SCH (09:53)
[2019-06-07] MEDS: LISINOPRIL 20 MG TAB PO SCH (09:54)
--- NOTE | 2019-06-07 11:24 | P.PN ---
Progress Note - Text Progress Note Date: 06/07/19 Interval History: Patient was seen wandering the hallways and was agreeable to speak to music writer in the office. Patient stated that he had a "great weekend" and states that he has been taking his medications and has been feeling "never better". Patient continues to be somewhat talkative and hyperverbal at times however this is improving mildly. Patient states that he has been trying to keep busy by going to groups and actively participating on the unit. He spoke about his brother coming in to visit him from [facility] and states that she is a trail construction worker at [employer] and helped him "lifted my spirits". He states that the medication is helping him with sleep and keep his mood "calm her at night" and allowing him to sleep throughout the night. He states that he is eating 3 meals a day and offers no other complaints. Patient did speak about another patient on the unit who he considers "my daughter" and is trying to mentor and help her. Patient was alert and oriented 3 today. He denies any side effects at this time and has been compliant with his medications. Patient also spoke about needing to take his medications when he leaves the hospital. At this time patient denies any suicidal or homical ideations, intent or plan. Patient admitted to auditory hallucinations. He denies any visual hallucinations. Mental Status Exam: General Appearance: Patient appears to be stated age is alert, pleasant, more cooperative. Patient is in street clothing and has improving hygiene and grooming. Behavior: Patient is seated without any agitated behavior. Patient is less intrusive today. Difficult to redirect at times. Speech: Patient's speech is fluent and hyperverbal. Mood/Affect: Mood is improving mildly, affect is congruent Suicidality/Homicidality: Patient denies having any suicidal or homicidal ideation intent or plan. Perceptions: Patient denies any auditory or visual hallucinations. Though content/process: Rambling less during conversation. Less Tangential/circumstantial in thought process Memory and concentration: AOX3, improving attention span. Judgment and insight: mildly improving Assessment Mood disorder unspecified Plan: -Patient continues to meet criteria for inpatient psychiatric admission for symptom stabilization and safety. Patient has signed adult voluntary form and medication consent and was placed in patient's chart. -Medications: Will continue with Zyprexa 15 mg daily at bedtime for mood stabilization/psychosis. Will continue with Depakote ER 500 mg daily at bedtime for mood stabilization. -Appreciated neurology recommendations. -RPR - nonreactive, folic acid level are within and B12 level is elevated. -CT of the head on admission showed chronic small vessel ischemia. -When necessary Zyprexa IM and PO for agitation/aggression. -NRT -not need this patient does not smoke -SW on board for discharge planning. Social work to reach out to family members to assess her baseline. Patient likely discharge home tomorrow.
[2019-06-07 12:53] LABS: Glucose,Whole Blood 86 mg/dL (75-99)
[2019-06-07 17:36] LABS: Glucose,Whole Blood 131 mg/dL (75-99)
[2019-06-07] MEDS ORDERED: WARFARIN 7.5 MG TAB PO ONE (18:00)
[2019-06-07 20:12] LABS: Glucose,Whole Blood 218 mg/dL (75-99)
[2019-06-07] MEDS: INSULIN DETEMIR (LEVEMIR) 100 UNIT/ML SYR SQ SCH (20:17)
[2019-06-07] MEDS: DIVALPROEX ER 500 MG TAB.ER.24H PO SCH (20:19)
[2019-06-07] MEDS: OLANZapine 10 MG TAB PO SCH (20:19)
[2019-06-08 06:06] VITALS: BP 128/75; PULSE 98; RESP 16; TEMP 97.7
[2019-06-08 07:46] LABS: Glucose,Whole Blood 125 mg/dL (75-99)
[2019-06-08] MEDS: INSULIN ASPART (NovoLOG) 100 UNIT/ML VIAL SQ SCH ×2 (07:55→12:36)
[2019-06-08 08:45] LABS: Prothrombin Time 19.3 sec (9.0-12.0)
--- NOTE | 2019-06-08 10:10 | P.DS ---
Providers Date of admission: 05/31/19 21:27 Expected date of discharge: 06/08/19 Attending physician: Ryley Lawrence MD Consults: 05/31/19 22:03 Consult Physician Routine Consulting Provider: Adan Agee Consult Reason/Comments: H&P and medical and tachycardia and hypertension diabetes Do you want consulting provider notified?: Yes 06/01/19 12:42 Consult Physician Routine Consulting Provider: Aren Nunez Consult Reason/Comments: Acute mental status change Do you want consulting provider notified?: Yes 06/02/19 12:25 Consult Physician Routine Consulting Provider: Aren Nunez Consult Reason/Comments: Neuro consult. No previous history of MH Do you want consulting provider notified?: Yes Primary care physician: Stated None - Discharge Diagnosis(es) (1) Unspecified episodic mood disorder Current Visit: Yes Status: Acute Priority: High Hospital Course: Admission HPI: This patient is a 58-year-old single male who was admitted to the mental health unit through ER. The patient is a 58 yo M with a PMH of Type 2 DM who presented to the ED from the outpatient clinic for reported suicidal ideation. The patient was noted to be in psychosis in the ED and was admitted to the MHU. The patient was seen and evaluated at the MHU. The patient was in acute psychosis with very disorganized and paranoid though process. He answered questions briefly after multiple attempts at redirecting. He reported chronic shoulder and lower back pain but denied any additional complaints. Patient underwent an extensive evaluation in the ED w/ CT brain that was unremarkable and a UTox positive for benzo with EtOH negative. The patient is a poor historian and limited information was available in the EMR. The patient was not able to answer any questions appropriately and had tangential and rambling speech with some intake echolalia. The patient appears to be very confused and is easily agitated and difficult to redirect. The patient reports poor sleep but could not elaborate. He denies any auditory or visual hallucination but appears to be responding to internal cues and has been talking to himself. The patient denies any active suicidal or homicidal ideations at this time. Hospital course: Upon admission to the unit patient was initially disorganized bizarre and hyperverbal. Patient was difficult to redirect and required one-to-one sitter for safety as patient was agitated and labile. Patient also required several PRN medications initially for agitation/psychosis. Patient also was noted by staff to attempt to wrap curtains around his neck and laughing inappropriately on the unit. Patient eventually engaged more with treatment and progressed to get along well with other patients on the unit and followed unit protocol. Patient was compliant with the medications and denied any side effects throughout hospital course. Patient was started on Zyprexa and titrated up to a dose of 15 mg nightly for mood stabilization/psychosis. Patient was also started on Depakote ER 500 mg nightly for mood stabilization. Patient spoke of his stressors and engaged in therapy both group and individual. Patient was also seen by medical team for history and physical exam. Patient's urine drug screen was positive for benzodiazepines. Patient also had other blood work completed including B12 - 1867, folate > 24.0, syphilis test was nonreactive, TSH within normal limits. Patient also had a head CT done on admission which showed chronic small vessel ischemia. Patient also had a neurology consultation for altered mental status that believed that patient was in a manic state with no signs pointing towards a neurological process, recommended to continue treatment with antipsychotic medications and complete B12 folate and a an RPR. Throughout the course of the hospitalization patient gradually improved with regards to mood, anxiety, behaviors/agitation, sleep and became future oriented with improved insight and judgment. On the day of discharge patient denied any suicidal or homicidal ideations intent or plan denied any auditory or visual hallucinations. Patient endorsed wanting to live for his health and family. The patient denied any access to guns or weapons. Patient denied any paranoia and did not endorse any delusions. Patient does not have a significant history of substance abuse however was counseled on abstaining from all substances including alcohol and marijuana. Patient was also counseled on the medications and need for regular compliance and was encouraged to follow-up with their outpatient appointment for mental health and also for primary care. Prior to discharge a family meeting will be arranged by social problems specialist to answer any questions and ensure safety upon discharge. Mental status exam: General Appearance: Patient appears to be stated age is alert, pleasant, and cooperative. Patient is in no acute distress and has fair hygiene and grooming Behavior: Patient is calmly seated without any agitated behavior. Speech: Patient's speech is fluent and nonpressured. Mood/Affect: Patient reports their mood is "much better", affect is congruent and euthymic. Suicidality/Homicidality: Patient denies having any suicidal or homicidal ideation intent or plan. Perceptions: Patient denies any auditory or visual hallucinations. Though content/process: There is no evidence of any delusional thought content and thought process is linear and goal-directed. More future oriented and logical. Memory and concentration: AOX3, grossly intact for the purposes of this session. Can spell "WORLD" backwards correctly. Judgment and insight: improved with guarded prognosis. Impression: Unspecified episodic mood disorder Plan: -Continue with discharge today as patient has improved and stabilized psychiatrically and is not currently an imminent threat to himself and/or others. -Continue medications: Depakote ER 500 mg daily at bedtime for mood stabilization, Zyprexa 15 mg daily at bedtime for mood stabilization/insomnia. -Patient was counseled on the need for medication compliance and appropriate follow-up at mental health and also primary care for medical issues. Patient verbalized understanding and agreed. -Social work to arrange for and conduct family meeting to ensure safety upon discharge and answer any questions/concerns. needleworker will reach out to patient's sister Sofy Jauregui to ensure safety upon discharge and address any concerns. Social work also to arrange for patients follow up appointments for psychiatric care along with follow up with primary care provider. -Patient counseled on abstaining from recreational drugs and marijuana and alcohol. Was informed/educated on the adverse effects on their physical and mental health. Patient verbally agreed and understood -Patient was instructed to return to the hospital or seek immediate medical care if their psychiatric or medical symptoms do worsen or reoccur. Allergies Allergy/AdvReac Type Severity Reaction Status Date / Time No Known Allergies Allergy Verified 05/31/19 22:57 Laboratory Results WBC 8.5 k/uL (3.8-10.6) 05/31/19 15:00 RBC 5.46 m/uL (4.30-5.90) 05/31/19 15:00 Hgb 15.7 gm/dL (13.0-17.5) 05/31/19 15:00 Hct 49.1 % (39.0-53.0) 05/31/19 15:00 MCV 89.9 fL (80.0-100.0) 05/31/19 15:00 MCH 28.7 pg (25.0-35.0) 05/31/19 15:00 MCHC 31.9 g/dL (31.0-37.0) 05/31/19 15:00 RDW 14.0 % (11.5-15.5) 05/31/19 15:00 Plt Count 247 k/uL (150-450) 05/31/19 15:00 Neutrophils % 71 % 05/31/19 15:00 Lymphocytes % 17 % 05/31/19 15:00 Monocytes % 10 % 05/31/19 15:00 Eosinophils % 0 % 05/31/19 15:00 Basophils % 0 % 05/31/19 15:00 Neutrophils # 6.0 k/uL (1.3-7.7) 05/31/19 15:00 Lymphocytes # 1.5 k/uL (1.0-4.8) 05/31/19 15:00 Monocytes # 0.8 k/uL (0-1.0) 05/31/19 15:00 Eosinophils # 0.0 k/uL (0-0.7) 05/31/19 15:00 Basophils # 0.0 k/uL (0-0.2) 05/31/19 15:00 PT 19.3 sec (9.0-12.0) H 06/08/19 08:04 INR 2.0 (<1.2) H 06/08/19 08:04 Sodium 139 mmol/L (137-145) 05/31/19 15:00 Potassium 4.2 mmol/L (3.5-5.1) 05/31/19 15:00 Chloride 104 mmol/L (98-107) 05/31/19 15:00 Carbon Dioxide 19 mmol/L (22-30) L 05/31/19 15:00 Anion Gap 16 mmol/L 05/31/19 15:00 BUN 22 mg/dL (9-20) H 05/31/19 15:00 Creatinine 1.03 mg/dL (0.66-1.25) 05/31/19 15:00 Est GFR (CKD-EPI)AfAm >90 (>60 ml/min/1.73 sqM) 05/31/19 15:00 Est GFR (CKD-EPI)NonAf 79 (>60 ml/min/1.73 sqM) 05/31/19 15:00 Glucose 167 mg/dL (74-99) H 05/31/19 15:00 POC Glucose (mg/dL) 125 mg/dL (75-99) H 06/08/19 07:43 POC Glu Certified Mortician ID Kaylyn Odom 06/08/19 07:[address] Glu mg/dL 194 06/01/19 08:35 Hemoglobin A1c 8.4 % (4.0-6.0) H 06/01/19 08:35 Calcium 10.2 mg/dL (8.4-10.2) 05/31/19 15:00 Total Bilirubin 0.7 mg/dL (0.2-1.3) 05/31/19 15:00 AST 30 U/L (17-59) 05/31/19 15:00 ALT 12 U/L (4-49) 05/31/19 15:00 Alkaline Phosphatase 112 U/L (38-126) 05/31/19 15:00 Total Protein 8.7 g/dL (6.3-8.2) H 05/31/19 15:00 Albumin 4.9 g/dL (3.5-5.0) 05/31/19 15:00 Triglycerides 85 mg/dL (<150) 06/01/19 08:35 Cholesterol 238 mg/dL (<200) H 06/01/19 08:35 LDL Cholesterol, Calc 157 mg/dL (0-99) H 06/01/19 08:35 HDL Cholesterol 64 mg/dL (40-60) H 06/01/19 08:35 Vitamin B12 1867.0 pg/mL (200.0-944.0) H 06/04/19 08:57 Folate >24.0 ng/mL 06/04/19 08:57 TSH 1.270 mIU/L (0.465-4.680) 06/01/19 08:35 Urine Opiates Screen Not Detected (NotDetected) 05/31/19 12:20 Ur Oxycodone Screen Not Detected (NotDetected) 05/31/19 12:20 Urine Methadone Screen Not Detected (NotDetected) 05/31/19 12:20 Ur Propoxyphene Screen Not Detected (NotDetected) 05/31/19 12:20 Ur Barbiturates Screen Not Detected (NotDetected) 05/31/19 12:20 U Tricyclic Antidepress Not Detected (NotDetected) 05/31/19 12:20 Ur Phencyclidine Scrn Not Detected (NotDetected) 05/31/19 12:20 Ur Amphetamines Screen Not Detected (NotDetected) 05/31/19 12:20 U Methamphetamines Scrn Not Detected (NotDetected) 05/31/19 12:20 U Benzodiazepines Scrn Detected (NotDetected) H 05/31/19 12:20 Urine Cocaine Screen Not Detected (NotDetected) 05/31/19 12:20 U Marijuana (THC) Screen Not Detected (NotDetected) 05/31/19 12:20 Serum Alcohol <10 mg/dL 05/31/19 15:00 Treponema pallidum Ab Non-Reactive (Non-Reactive) 06/04/19 08:57 Vital Signs Temp 97.7 F 06/08/19 06:05 Pulse 98 06/08/19 06:05 Resp 16 06/08/19 06:05 BP 128/75 06/08/19 06:05 Pulse Ox 97 06/04/19 01:25 Patient Condition at Discharge: Stable Plan - Discharge Summary New Discharge Prescriptions: New Divalproex ER [Depakote ER] 500 mg PO HS 28 Days tab.er.24h OLANZapine [ZyPREXA] 15 mg PO HS 28 Days tablet Continue Pioglitazone [Actos] 30 mg PO DAILY Empagliflozin [Jardiance] 25 mg PO DAILY Dulaglutide [Trulicity] 1.5 mg SQ Q7D metFORMIN HCL [Glucophage] 1,000 mg PO BID Lisinopril 40 mg PO DAILY Atorvastatin [Lipitor] 40 mg PO DAILY Warfarin Sodium [Coumadin] 10 mg PO DAILY Discharge Medication List Atorvastatin [Lipitor] 40 mg PO DAILY 05/31/19 [History] Dulaglutide [Trulicity] 1.5 mg SQ Q7D 05/31/19 [History] Empagliflozin [Jardiance] 25 mg PO DAILY 05/31/19 [History] Lisinopril 40 mg PO DAILY 05/31/19 [History] Pioglitazone [Actos] 30 mg PO DAILY 05/31/19 [History] Warfarin Sodium [Coumadin] 10 mg PO DAILY 05/31/19 [History] metFORMIN HCL [Glucophage] 1,000 mg PO BID 05/31/19 [History] Divalproex ER [Depakote ER] 500 mg PO HS 28 Days tab.er.24h 06/08/19 [Rx] OLANZapine [ZyPREXA] 15 mg PO HS 28 Days tablet 06/08/19 [Rx] Follow up Appointment(s)/Referral(s): None,Stated [Primary Care Provider] - 1-2 days Discharge Disposition: HOME SELF-CARE
[2019-06-08] MEDS: ATORVASTATIN 40 MG TAB PO SCH (12:14)
[2019-06-08] MEDS: EMPAGLIFLOZIN 25 MG PO SCH (12:14)
[2019-06-08] MEDS: LISINOPRIL 20 MG TAB PO SCH (12:14)
[2019-06-08 12:21] LABS: Glucose,Whole Blood 126 mg/dL (75-99)
[2019-06-08] MEDS ORDERED: WARFARIN 7.5 MG TAB PO ONE (18:00)
== END 2019-06-08 14:00 | disposition home or self-care (01) | DRG 885 ==
LOC: EC 11:50 → 3MHU 21:27
PROVIDERS: ADMIT Psychiatry & Neurology Psychiatry; ATTEND Psychiatry & Neurology Psychiatry
DX: F30.9 Manic episode, unspecified (principal); F23 Brief psychotic disorder; E87.2 Acidosis; R45.851 Suicidal ideations; F41.9 Anxiety disorder, unspecified; E86.0 Dehydration; E11.9 Type 2 diabetes mellitus without complications; F60.0 Paranoid personality disorder; G47.00 Insomnia, unspecified; I10 Essential (primary) hypertension; Z79.01 Long term (current) use of anticoagulants; Z79.84 Long term (current) use of oral hypoglycemic drugs; Z79.899 Other long term (current) drug therapy; Z91.5 Personal history of self-harm; M25.519 Pain in unspecified shoulder; M54.5 Low back pain; G89.29 Other chronic pain; Z60.2 Problems related to living alone
CPT/HCPCS: 36415; 70450; 80053; 80061; 80306; 80320; 82075; 82607; 82746; 83036; 84443; 85025; 85610; 86780; 99285

== ENCOUNTER 2019-06-19 18:31 | Inpatient (IN) | payer BC ==
--- NOTE | 2019-06-19 19:10 | ED ---
Psych HPI - General Chief Complaint: Psychiatric Symptoms Stated Complaint: Psych Time Seen by Provider: 06/19/19 18:40 Source: patient, police, RN notes reviewed, old records reviewed Mode of arrival: ambulatory - History of Present Illness Initial Comments: This is a 58-year-old male with a history of psychosis depression who was brought in by [facility] on petition after having been called twice on this patient. He apparently was at a local [employer] will be coming very manic and yelling at people patient also has not been taking his medication. He denies any drugs or alcohol. He is wandering around outside for last day he states MD Complaint: other - Related Data Home Medications Medication Instructions Recorded Confirmed Atorvastatin [Lipitor] 40 mg PO DAILY 05/31/19 05/31/19 Dulaglutide [Trulicity] 1.5 mg SQ Q7D 05/31/19 05/31/19 Empagliflozin [Jardiance] 25 mg PO DAILY 05/31/19 05/31/19 Lisinopril 40 mg PO DAILY 05/31/19 05/31/19 Pioglitazone [Actos] 30 mg PO DAILY 05/31/19 05/31/19 metFORMIN HCL [Glucophage] 1,000 mg PO BID 05/31/19 05/31/19 Previous Rx's Medication Instructions Recorded Divalproex ER [Depakote ER] 500 mg PO HS 28 Days tab.er.24h 06/08/19 OLANZapine [ZyPREXA] 15 mg PO HS 28 Days tablet 06/08/19 Allergies Allergy/AdvReac Type Severity Reaction Status Date / Time No Known Allergies Allergy Verified 06/19/19 18:38 Review of Systems ROS Statement: Those systems with pertinent positive or pertinent negative responses have been documented in the HPI. ROS Other: All systems not noted in ROS Statement are negative. Past Medical History Past Medical History: Diabetes Mellitus Additional Past Medical History / Comment(s): insomnia History of Any Multi-Drug Resistant Organisms: Unobtainable Past Surgical History: Unable to Obtain Past Psychological History: Unable to Obtain Smoking Status: Unknown if ever smoked Past Alcohol Use History: Unable to Obtain Past Drug Use History: Unable to Obtain General Exam - General Exam Comments Initial Comments: This is a well-developed well-nourished awake alert male he does seem somewhat confused as to time Limitations: no limitations General appearance: alert, in no apparent distress Head exam: Present: atraumatic, normocephalic, normal inspection Eye exam: Present: normal appearance, PERRL, EOMI. Absent: scleral icterus, conjunctival injection, periorbital swelling ENT exam: Present: normal exam, mucous membranes moist Neck exam: Present: normal inspection. Absent: tenderness, meningismus, lymphadenopathy Respiratory exam: Present: normal lung sounds bilaterally. Absent: respiratory distress, wheezes, rales, rhonchi, stridor Cardiovascular Exam: Present: normal rhythm, tachycardia, normal heart sounds. Absent: systolic murmur, diastolic murmur, rubs, gallop, clicks GI/Abdominal exam: Present: soft, normal bowel sounds. Absent: distended, tenderness, guarding, rebound, rigid Extremities exam: Present: normal inspection, full ROM, normal capillary refill. Absent: tenderness, pedal edema, joint swelling, calf tenderness Back exam: Present: normal inspection Neurological exam: Present: alert, oriented X3, CN II-XII intact Psychiatric exam: Present: manic Skin exam: Present: warm, dry, intact, normal color. Absent: rash Course Vital Signs 06/19/19 18:32 Temperature 97.4 F L Pulse Rate 115 H Respiratory 22 Rate Blood Pressure 141/71 O2 Sat by Pulse 99 Oximetry Medical Decision Making - Medical Decision Making The patient was admitted to the hospital after evaluation by the EPS service. Disposition Clinical Impression: Psychosis Disposition: TRANSFER TO PSYCH HOSP/UNIT Condition: Stable Referrals: None,Stated [Primary Care Provider] - 1-2 days
[2019-06-19 20:29] LABS: Glucose,Whole Blood 180 mg/dL (75-99)
[2019-06-19] MEDS ORDERED: MAGNESIUM HYDROXIDE 2,400 MG/10 ML CUP PO PRN (20:58)
[2019-06-19] MEDS ORDERED: MAG HYDROX/AL HYDROX/SIMETH 30 ML CUP PO PRN (20:58)
[2019-06-19] MEDS ORDERED: LORazepam 1 MG TAB PO PRN (20:58)
[2019-06-19] MEDS ORDERED: ACETAMINOPHEN TAB 325 MG TAB PO PRN (20:58)
[2019-06-19] MEDS: metFORMIN 500 MG TAB PO SCH (21:57)
[2019-06-19] MEDS ORDERED: INFLUENZA VACCINE (6 MOS+) 60 MCG/0.5 ML SYRINGE IM ONE (22:32)
--- NOTE | 2019-06-20 00:06 | P.MDCNMH ---
History of Present Illness H&P Date: 06/20/19 Chief Complaint: medical evalutaion 58-year-old male with history of diabetes and hypertension and depression Patient has no insight of his problems he denies any mental health problems. He reports that he probably lost track of time and he was wondering in his neighborhood before he got home he doesn't tell me how he got to the hospital or why he came for evaluation when asked he become tangential in his thought process. From reviewing medical records it seems like he was brought in by the [employer] [facility] after being called more than twice about the patient wandering in the streets last time he was at [employer] yelling at people very confused and manic for which she was brought to the hospital it seems like the patient has not been taking his psych medications. And admitted to me that he was not compliant with his medical regular medications for diabetes and hypertension. Currently denies any complaints of chest pain fevers and headaches coughing trouble breathing or abdominal pain. Review of Systems Pertinent positives as noted in HPI. All other systems were reviewed and are negative Past Medical History Past Medical History: Diabetes Mellitus Additional Past Medical History / Comment(s): insomnia History of Any Multi-Drug Resistant Organisms: Unobtainable Past Surgical History: No Surgical Hx Reported Additional Past Surgical History / Comment(s): "I HAVEN'T HAD ANY SURGERY". Past Anesthesia/Blood Transfusion Reactions: Unable to Obtain Past Psychological History: Depression Additional Psychological History / Comment(s): PSYCHOSIS Smoking Status: Never smoker Past Alcohol Use History: None Reported Past Drug Use History: None Reported - Past Family History Father Family Medical History: Cancer Mother Family Medical History: CVA/TIA Medications and Allergies Home Medications Medication Instructions Recorded Confirmed Type Atorvastatin [Lipitor] 40 mg PO DAILY 05/31/19 06/19/19 History Dulaglutide [Trulicity] 1.5 mg SQ Q7D 05/31/19 06/19/19 History Empagliflozin [Jardiance] 25 mg PO DAILY 05/31/19 06/19/19 History Lisinopril 40 mg PO DAILY 05/31/19 06/19/19 History Pioglitazone [Actos] 30 mg PO DAILY 05/31/19 06/19/19 History metFORMIN HCL [Glucophage] 1,000 mg PO BID 05/31/19 06/19/19 History Divalproex ER [Depakote ER] 500 mg PO HS 28 Days tab.er.24h 06/08/19 06/19/19 Rx OLANZapine [ZyPREXA] 15 mg PO HS 28 Days tablet 06/08/19 06/19/19 Rx Allergies Allergy/AdvReac Type Severity Reaction Status Date / Time No Known Allergies Allergy Verified 06/19/19 22:15 Physical Exam Vitals: Vital Signs Temp Pulse Pulse Resp BP BP Pulse Ox 06/19/19 21:10 97.5 F L 108 H 18 130/69 98 06/19/19 18:32 97.4 F L 115 H 22 141/71 99 Intake and Output 06/19/19 06/19/19 06/20/19 14:59 22:59 06:59 Other: Weight 91.716 kg Constitutional: No acute distress, conversant, pleasant Eyes: Anicteric sclerae, moist conjunctiva, no lid-lag Pupils equal round reactive to light ENMT: NC/AT Oropharynx clear, no erythema, exudates Neck: Supple, FROM, no masses, or JVD No carotid bruits No thyromegaly Lungs: Clear to auscultation Clear to percussion Normal respiratory effort, no accessory muscle use Cardiovascular: Heart regular in rate and rhythm, No murmurs, gallops, or rubs No peripheral edema Abdominal: Soft Nontender, no guarding, rebound or rigidity Abdomen moving with respiration Normoactive bowel sounds No hepatomegaly, No splenomegaly No palpable mass No abdominal wall hernia noted Skin: Normal temperature, tone, texture, turgor No induration No subcutaneous nodules No rash, lesions No ulcers Extremities: No digital cyanosis No clubbing Pedal pulses intact and symmetrical Radial pulses intact and symmetrical No calf tenderness Psychiatric: Alert and oriented to person, place not oriented to time Flight of ideas tangential thoughts Poor judgement Neuro Muscles Strength 5/5 in all 4 extremities Sensation to light touch grossly present throughout Cranial nerves II-XII grossly intact No focal sensory deficits Lymphatics: no palpable cervical or supraclavicular , or inguinal lymph nodes Cranial Nerve Examination - Cranial Nerves Cranial Nerve II- Optic: Intact Cranial Nerve III- Oculomotor: Intact Cranial Nerve IV- Trochlear: Intact Cranial Nerve V- Trigeminal: Intact Cranial Nerve - Abducens: Intact Cranial Nerve VII- Facial: Intact Cranial Nerve VIII- Auditory: Intact Cranial Nerve IX- Glossopharyngeal: Intact Cranial Nerve X- Vagus: Intact Cranial Nerve XI- Accessory: Intact Cranial Nerve XII- Hypoglossal: Intact Results Labs: Abnormal Lab Results - Last 24 Hours (Table) 06/19/19 Range/Units 20:17 POC Glucose (mg/dL) 180 H (75-99) mg/dL Assessment and Plan Plan: Manic episodes with history of depression Management per psych History of diabetes, resume home meds, is on sliding scale History of hypertension Continue home medications of lisinopril DVT prophylaxis patient low risk patient ambulatory Thank you for allowing us to participate in the care of this patient. We will follow peripherally. Do not hesitate to contact us with questions. Someone can be reached from the [facility] hospitalist group at all hours of the day at [phone].
[2019-06-20] MEDS ORDERED: DIVALPROEX 500 MG TABLET.DR PO STA (02:00)
[2019-06-20] MEDS ORDERED: OLANZapine 5 MG TAB PO STA (02:01)
[2019-06-20] MEDS ORDERED: DIVALPROEX ER 500 MG TAB.ER.24H PO STA (02:08)
[2019-06-20] MEDS: ATORVASTATIN 40 MG TAB PO SCH (07:47)
[2019-06-20] MEDS: metFORMIN 500 MG TAB PO SCH ×2 (07:47→17:29)
[2019-06-20 07:48] LABS: Glucose,Whole Blood 102 mg/dL (75-99)
[2019-06-20] MEDS: LISINOPRIL 20 MG TAB PO SCH (07:48)
[2019-06-20] MEDS: INSULIN ASPART (NovoLOG) 100 UNIT/ML VIAL SQ SCH ×4 (07:51→21:12)
[2019-06-20] MEDS: Empagliflozin [Jardiance] PO SCH (07:52)
[2019-06-20 08:14] LABS: Basophils # (A) 0.1 k/uL (0-0.2); Basophils % (A) 1 %; Eosinophils # (A) 0.1 k/uL (0-0.7); Eosinophils % (A) 1 %; HCT 41.1 % (39.0-53.0); HGB 12.9 gm/dL (13.0-17.5); Lymphocytes # (A) 2.3 k/uL (1.0-4.8); Lymphocytes % (A) 38 %; MCH 28.1 pg (25.0-35.0); MCHC 31.3 g/dL (31.0-37.0); MCV 89.7 fL (80.0-100.0); Mean Platelet Volume 7.5; Monocytes # (A) 0.5 k/uL (0-1.0); Monocytes % (A) 9 %; Neutrophils % (A) 49 %; Platelet Count 175 k/uL (150-450); RBC 4.58 m/uL (4.30-5.90); RDW 13.9 % (11.5-15.5); WBC 6.1 k/uL (3.8-10.6)
[2019-06-20 08:33] LABS: Albumin 3.9 g/dL (3.5-5.0); Calcium 9.5 mg/dL (8.4-10.2); Potassium 4.6 mmol/L (3.5-5.1); Total Bilirubin 0.6 mg/dL (0.2-1.3); Total Protein 7.2 g/dL (6.3-8.2)
[2019-06-20 12:36] LABS: Glucose,Whole Blood 97 mg/dL (75-99)
[2019-06-20] MEDS: PALIPERIDONE 3 MG TAB.ER.24 PO SCH (12:38)
[2019-06-20] MEDS ORDERED: OLANZapine 10 MG VIAL IM PRN (12:43)
--- NOTE | 2019-06-20 12:43 | P.HP ---
Psychiatric H&P - . H&P Date: 06/20/19 History & Physical: Allergies Allergy/AdvReac Type Severity Reaction Status Date / Time No Known Allergies Allergy Verified 06/19/19 22:15 Vital Signs Temp 98.8 F 06/20/19 02:21 Pulse 83 06/20/19 07:50 Resp 18 06/20/19 07:50 BP 116/73 06/20/19 07:50 Pulse Ox 98 06/19/19 21:10 Intake & Output 06/19/19 06/20/19 06/20/19 18:59 06:59 18:59 Weight 90.718 kg 91.716 kg 93 kg Laboratory Last Values WBC 6.1 k/uL (3.8-10.6) 06/20/19 07:36 RBC 4.58 m/uL (4.30-5.90) 06/20/19 07:36 Hgb 12.9 gm/dL (13.0-17.5) L 06/20/19 07:36 Hct 41.1 % (39.0-53.0) 06/20/19 07:36 MCV 89.7 fL (80.0-100.0) 06/20/19 07:36 MCH 28.1 pg (25.0-35.0) 06/20/19 07:36 MCHC 31.3 g/dL (31.0-37.0) 06/20/19 07:36 RDW 13.9 % (11.5-15.5) 06/20/19 07:36 Plt Count 175 k/uL (150-450) 06/20/19 07:36 Neutrophils % 49 % 06/20/19 07:36 Lymphocytes % 38 % 06/20/19 07:36 Monocytes % 9 % 06/20/19 07:36 Eosinophils % 1 % 06/20/19 07:36 Basophils % 1 % 06/20/19 07:36 Neutrophils # 3.0 k/uL (1.3-7.7) 06/20/19 07:36 Lymphocytes # 2.3 k/uL (1.0-4.8) 06/20/19 07:36 Monocytes # 0.5 k/uL (0-1.0) 06/20/19 07:36 Eosinophils # 0.1 k/uL (0-0.7) 06/20/19 07:36 Basophils # 0.1 k/uL (0-0.2) 06/20/19 07:36 Sodium 138 mmol/L (137-145) 06/20/19 07:36 Potassium 4.6 mmol/L (3.5-5.1) 06/20/19 07:36 Chloride 104 mmol/L (98-107) 06/20/19 07:36 Carbon Dioxide 25 mmol/L (22-30) 06/20/19 07:36 Anion Gap 9 mmol/L 06/20/19 07:36 BUN 35 mg/dL (9-20) H 06/20/19 07:36 Creatinine 1.10 mg/dL (0.66-1.25) 06/20/19 07:36 Est GFR (CKD-EPI)AfAm 84 (>60 ml/min/1.73 sqM) 06/20/19 07:36 Est GFR (CKD-EPI)NonAf 73 (>60 ml/min/1.73 sqM) 06/20/19 07:36 Glucose 108 mg/dL (74-99) H 06/20/19 07:36 POC Glucose (mg/dL) 102 mg/dL (75-99) H 06/20/19 07:46 POC Glu Junior Brand Manager ID Naida Galo 06/20/19 07:46 Calcium 9.5 mg/dL (8.4-10.2) 06/20/19 07:36 Total Bilirubin 0.6 mg/dL (0.2-1.3) 06/20/19 07:36 AST 30 U/L (17-59) 06/20/19 07:36 ALT 13 U/L (4-49) 06/20/19 07:36 Alkaline Phosphatase 79 U/L (38-126) 06/20/19 07:36 Total Protein 7.2 g/dL (6.3-8.2) 06/20/19 07:36 Albumin 3.9 g/dL (3.5-5.0) 06/20/19 07:36 Triglycerides 90 mg/dL (<150) 06/20/19 07:36 Cholesterol 181 mg/dL (<200) 06/20/19 07:36 LDL Cholesterol, Calc 109 mg/dL (0-99) H 06/20/19 07:36 HDL Cholesterol 54 mg/dL (40-60) 06/20/19 07:36 TSH 2.910 mIU/L (0.465-4.680) 06/20/19 07:36 06/20/19 12:31 IDENTIFYING DATA: Patient is a 58-year-old -[place] male who is a history of mood disorder and manic episodes who currently lives alone. HPI: Patient presented to the hospital yesterday and was escorted by police after they were called twice for patient going to a local [employer]'s and yelling at people in the restaurant. Patient was recently discharged from the mental health unit on 06/08/19 on Zyprexa and Depakote. Patient was given Ativan yesterday prior to admission to the mental health unit. Patient claimed to have been confused and states that "these were blending into other days". He claims that he was disoriented and walking around his neighborhood and he also states that he believes that he "stay at out too late". He is talkative/hyperverbal and is tangential/circumstantial and having loose associations. Patient is for the most part cooperative with technical publications writer however has poor judgment and reality testing. Patient claims that he was taking his medications however is not sure. He is alert and oriented 3 today. Patient denies any suicidal or homicidal ideations intent or plan. At this time patient denies any auditory or visual hallucinations. Patient denies using any recreational drugs at this time, denies smoking cigarettes. PAST PSYCHIATRIC HISTORY: Patient states that patient has a history of mood disorder/manic episode last month and was admitted and discharged on 06/08/2019 for the mental health unit. Patient claimed that he was on Depakote 500 mg daily plus Zyprexa 15 mg daily at bedtime. He denies any history of suicide attempts. PMH: Diabetes mellitus, hypertension ALLERGIES: as per EMR CHEMICAL DEPENDENCY HISTORY: as per HPI FAMILY PSYCHIATRIC/SUBSTANCE USE HISTORY: denies SOCIAL HISTORY: Patient claims that he lives by himself at this time in a house and is retired. MENTAL STATUS EXAM: General Appearance: Patient appears to be stated age is alert, pleasant, and attempts to cooperate. Patient has marginal hygiene and grooming wearing street clothing and fair eye contact. Behavior: Patient is calmly seated without any agitated behavior. Mildly intrusive. Speech: Patient's speech is rapid/hyperverbal. Mood/Affect: Patient reports their mood is "happy", affect is congruent and constricted. Suicidality/Homicidality: Patient denies having any suicidal or homicidal ideation intent or plan. Perceptions: Patient denies any auditory or visual hallucinations. Though content/process: Patient rambles, is tangential/circumstantial has poor reality testing and judgment and loose associations. Memory and concentration: AOX3, grossly intact for the purposes of this session. Poor attention span. Cannot spell "WORLD" backwards Judgment and insight: poor STRENGTHS/WEAKNESSES: strength is that patient is resilient. Weaknesses that patient has minimal support and lives alone. INTELLECT: average IMPRESSIONS: Bipolar disorder, currently in manic episode with psychotic features. PLAN: -Patient is admitted under voluntary status to MHU for stabilization of psychiatric symptoms and safety. Patient signed adult voluntary form and medication consent and is placed in patient's chart. -Medications : Will start patient on Invega 3 mg by mouth daily with plan to titrate up as tolerated for mood stabilization/psychosis. Patient is agreeable to be placed on long acting injection for compliance. Melatonin daily at bedtime for sleep -Zyprexa PRN for agitation/aggression -VPA level today to check for compliance. -Patient was informed of the risks, benefits and side effects of the medication and patient verbally consented to taking the medications. Patient signed med consent form and was placed in chart. -NRT -need to this patient does not smoke. - on board for discharge planning 06/20/19 12:33 06/20/19 12:34
[2019-06-20 17:30] LABS: Glucose,Whole Blood 117 mg/dL (75-99)
[2019-06-20 20:16] LABS: Glucose,Whole Blood 160 mg/dL (75-99)
[2019-06-20] MEDS: MELATONIN 3 MG TABLET PO SCH (21:12)
[2019-06-21] MEDS: INSULIN ASPART (NovoLOG) 100 UNIT/ML VIAL SQ SCH ×4 (08:04→20:20)
[2019-06-21] MEDS: metFORMIN 500 MG TAB PO SCH ×2 (08:04→17:33)
[2019-06-21] MEDS: LISINOPRIL 20 MG TAB PO SCH (08:05)
[2019-06-21] MEDS: ATORVASTATIN 40 MG TAB PO SCH (08:05)
[2019-06-21] MEDS: Empagliflozin [Jardiance] PO SCH (08:05)
[2019-06-21] MEDS: PALIPERIDONE 3 MG TAB.ER.24 PO SCH (08:06)
[2019-06-21 08:08] LABS: Glucose,Whole Blood 127 mg/dL (75-99)
[2019-06-21 09:16] LABS: Hemoglobin A1C 8.8 % (4.0-6.0)
--- NOTE | 2019-06-21 10:35 | P.PN ---
Progress Note - Text Progress Note Date: 06/21/19 Interval History: Patient was seen sitting in the lounge talking with another patient and was di rectable and agreeable to speak to scenario writer in the office. Patient appears to be fairly talkative this morning and appears to have a bright affect however is more organized in his thought process and content. Patient spoke about groups and how he is attending them and "getting a lot out of them". He states that he is concerned because his sister does not know that he is here in the hospital and that "she needs to know that I am going to be on an injection". Patient is directable and agreeable to continue with medication treatment and is okay with his paliperidone dose increasing tomorrow. He states that he is continuing to have "racing thoughts" however are mildly improved. He states that he slept to the night with no issues and has been eating well. At this time patient denies any suicidal or homical ideations, intent or plan. Patient denies any auditory, visual hallucinations and denies any paranoia or delusions. Patient denies any side effects from the medications and has been compliant with meds. Mental Status Exam: General Appearance: Patient appears to be stated age is alert, pleasant, and attempts to cooperate. Patient has improving hygiene and grooming wearing street clothing and fair eye contact. Behavior: Patient is calmly seated without any agitated behavior. Mildly intrusive. Speech: Patient's speech is rapid/hyperverbal, oddly improved. Mood/Affect: Patient reports their mood is "good", affect is congruent Suicidality/Homicidality: Patient denies having any suicidal or homicidal ideation intent or plan. Perceptions: Patient denies any auditory or visual hallucinations. Though content/process: Patient rambles, is tangential/circumstantial, more organized in thought process. Memory and concentration: AOX3, grossly intact for the purposes of this session. Improving attention span. Judgment and insight: poor, improving mildly Assessment Bipolar disorder, currently in manic episode with psychotic features. Plan: -Patient continues to meet criteria for inpatient psychiatric admission for symptom stabilization and safety. Patient has signed adult voluntary form and medication consent and was placed in patient's chart. -Medications: Will increase paliperidone by mouth to 6 mg daily with plan to titrate up as tolerated for mood stabilization/psychosis. Patient is continuing to be agreeable to a placed on long acting injection to ensure compliance. Continue with melatonin 3 mg nightly for sleep. -When necessary Zyprexa IM for agitation/aggression. -NRT -not need this patient does not smoke. -SW on board for discharge planning. Patient will likely need discharge to once clinically stable and on Invega Sustenna long-acting injection. Will ask home health care social worker to reach out to patient's sister for further information.
[2019-06-21 13:03] LABS: Glucose,Whole Blood 115 mg/dL (75-99)
[2019-06-21 17:33] LABS: Glucose,Whole Blood 189 mg/dL (75-99)
[2019-06-21 20:15] LABS: Glucose,Whole Blood 130 mg/dL (75-99)
[2019-06-21] MEDS: MELATONIN 3 MG TABLET PO SCH (21:08)
[2019-06-22 08:03] LABS: Glucose,Whole Blood 145 mg/dL (75-99)
[2019-06-22] MEDS: INSULIN ASPART (NovoLOG) 100 UNIT/ML VIAL SQ SCH ×4 (08:05→20:16)
[2019-06-22] MEDS: PALIPERIDONE 6 MG TAB.ER.24 PO SCH (08:06)
[2019-06-22] MEDS: metFORMIN 500 MG TAB PO SCH ×2 (08:06→17:55)
[2019-06-22] MEDS: LISINOPRIL 20 MG TAB PO SCH (08:06)
[2019-06-22] MEDS: ATORVASTATIN 40 MG TAB PO SCH (08:06)
[2019-06-22] MEDS: Empagliflozin [Jardiance] PO SCH (09:01)
[2019-06-22 09:22] LABS: Glucose,Whole Blood 179 mg/dL (75-99)
--- NOTE | 2019-06-22 09:36 | US ---
EXAMINATION TYPE: US venous doppler duplex LE BI DATE OF EXAM: 06/22/2019 8:52 AM COMPARISON: 04/29/2013 CLINICAL HISTORY: history of DVT. Mental health patient with painful left leg, no swelling, patient u nsure of medical history SIDE PERFORMED: Bilateral TECHNIQUE: The lower extremity deep venous system is examined utilizing real time linear array sonog luzmaria with graded compression, doppler sonography and color-flow sonography. VESSELS IMAGED: External Iliac Vein (EIV) Common Femoral Vein Deep Femoral Vein Greater Saphenous Vein * Femoral Vein Popliteal Vein Small Saphenous Vein * Proximal Calf Veins (* superficial vessels) Low-level internal echoes are present within the distribution of the external iliac veins, common fem oral veins, deep femoral veins, popliteal veins, there is thready color flow and lack of compressibil ity. Right Leg: Appears positive for acute thrombus extending from proximal calf veins extending up throu gh EIV, internal echoes, not able to compress, minimal color flow Left Leg: Appears positive for acute thrombus extending from proximal calf veins extending up throug h EIV, internal echoes, not able to compress, minimal color flow IMPRESSION: Deep venous thrombosis within the bilateral lower extremities as described. Cannot ass ess the acuity of the findings. Report relayed telephonically to Indira at the time of interpretation of the exam on third floor mental health unit.
--- NOTE | 2019-06-22 09:46 | P.PN ---
Progress Note - Text Progress Note Date: 06/22/19 Interval History: Patient was seen at the nurse's desk this morning and appeared to be confused and anxious. Patient was initially agreeable to speak with the bond writer however was not able to follow bond writer into the office and began backtracking and going back to the nurse's desk. Patient appeared to be confused and was minimally following commands. Patient was not able to answer orientation questions or describe how he was feeling and was speaking illogically, asking about his classes. Patient took his morning meds this am including Invega Sustenna 6 mg which was recently titrated up. Patient was able to sit in the library and have his vitals taken which showed tachycardia and elevated blood pressure however patient was moving around and standing up during the assessment. Patient did not appear to have any facial droop however was trembling mildly in his arms. Patient did not have any muscle stiffness in his upper extremities and joints. Patient was not able to answer any further questions. Mental Status Exam: General Appearance: Patient appears to be stated age is alert, and confused, minimally responds to commands. Patient has fair hygiene and grooming wearing street clothing and fair eye contact. Behavior: Patient is confused, wandering the hallways. No muscle stiffness, no facial drooping, mild tremor in upper extremities Speech: Patient's speech is illogical and inappropriate. Mood/Affect: Unable to assess Suicidality/Homicidality: Unable to assess Perceptions: Unable to assess Though content/process: Patient tangential illogical and disorganized. Memory and concentration: Acutely confused, unable to answer orientation questions or participating cognitive exam. Judgment and insight: poor/confused. Assessment Bipolar disorder, currently in manic episode with psychotic features. Patient is acutely confused this morning. Plan: -Patient continues to meet criteria for inpatient psychiatric admission for symptom stabilization and safety. Patient has signed adult voluntary form and medication consent and was placed in patient's chart. -Medications: Will continue with paliperidone by mouth to 6 mg daily for mood stabilization/psychosis. Continue with melatonin 3 mg nightly for sleep. -Nurses to ask A-team to emergently evaluate the patient for acute confusion, ordered stat comprehensive panel, CBC with differential and EKG. We'll consider CT head. -When necessary Zyprexa IM for agitation/aggression. -NRT -not need this patient does not smoke. -SW on board for discharge planning. Patient will likely need discharge to once clinically stable and on Invega Sustenna long-acting injection.
[2019-06-22 10:48] LABS: Basophils % (A) 1 %; Eosinophils % (A) 1 %; HCT 43.1 % (39.0-53.0); HGB 13.4 gm/dL (13.0-17.5); Lymphocytes # (A) 1.2 k/uL (1.0-4.8); Lymphocytes % (A) 20 %; MCH 28.3 pg (25.0-35.0); MCHC 31.1 g/dL (31.0-37.0); MCV 90.9 fL (80.0-100.0); Mean Platelet Volume 7.7; Monocytes # (A) 0.4 k/uL (0-1.0); Monocytes % (A) 7 %; Neutrophils # (A) 4.4 k/uL (1.3-7.7); Neutrophils % (A) 71 %; Platelet Count 190 k/uL (150-450); RBC 4.75 m/uL (4.30-5.90); RDW 13.8 % (11.5-15.5); WBC 6.2 k/uL (3.8-10.6)
[2019-06-22 10:49] LABS: Albumin 4.2 g/dL (3.5-5.0); Calcium 9.7 mg/dL (8.4-10.2); Potassium 4.4 mmol/L (3.5-5.1); Total Bilirubin 0.6 mg/dL (0.2-1.3); Total Protein 7.6 g/dL (6.3-8.2)
[2019-06-22] MEDS: APIXABAN 5 MG TAB PO SCH ×2 (11:13→19:59)
[2019-06-22 12:35] LABS: Glucose,Whole Blood 149 mg/dL (75-99)
[2019-06-22] MEDS ORDERED: OLANZapine 10 MG VIAL IM PRN (14:04)
[2019-06-22 17:43] LABS: Glucose,Whole Blood 285 mg/dL (75-99)
[2019-06-22] MEDS: MELATONIN 3 MG TABLET PO SCH (19:59)
[2019-06-22 20:04] LABS: Glucose,Whole Blood 208 mg/dL (75-99)
--- NOTE | 2019-06-22 21:29 | P.EN ---
after varying reports of possible history of blood clot , and being at one point on blood thinners. LE venous duplex US, confirmed bilateral DVT , acuity undetermined patient was started on Eliquis patient is too confused at this time, to provide further history EKG showed sinus tachycardia at 108 vital sings seems to be stable at this point consider obtaining previous records regarding blood clot will re-evaluate in the morning
[2019-06-22] MEDS ORDERED: ZIPRASIDONE 20 MG VIAL IM PRN (22:44)
[2019-06-23 07:40] LABS: Glucose,Whole Blood 131 mg/dL (75-99)
[2019-06-23 07:44] LABS: Glucose,Whole Blood 134 mg/dL (75-99)
[2019-06-23] MEDS: INSULIN ASPART (NovoLOG) 100 UNIT/ML VIAL SQ SCH ×4 (07:59→20:25)
[2019-06-23] MEDS: APIXABAN 5 MG TAB PO SCH ×2 (08:43→20:27)
[2019-06-23] MEDS: ATORVASTATIN 40 MG TAB PO SCH (08:43)
[2019-06-23] MEDS: PALIPERIDONE 6 MG TAB.ER.24 PO SCH (08:44)
[2019-06-23] MEDS: LISINOPRIL 20 MG TAB PO SCH (08:44)
[2019-06-23] MEDS: metFORMIN 500 MG TAB PO SCH ×2 (08:44→16:45)
[2019-06-23] MEDS: Empagliflozin [Jardiance] PO SCH (08:49)
[2019-06-23] MEDS: VALPROIC ACID ORAL SOLN 250 MG/5 ML CUP PO SCH ×2 (10:56→20:30)
--- NOTE | 2019-06-23 11:21 | P.PN ---
Progress Note - Text Progress Note Date: 06/23/19 Interval History: Patient was seen wandering the hallways confused and this morning patient had his hands up in the air. Patient was somewhat directable to speak to brief writer in the office however continue to have his hands both up in the air. When asked why he was doing this patient states that "I don't know why I just need to do it". Patient was confused during the interview and rambled however was illogical and tangential. Patient was somewhat intrusive however was directable and was able to sit through the interview. He was looking around the room and pointing a different objects describing them. Patient also was attempting to read his chart on the computer however was speaking nonsensically at times. Patient did take his paliperidone this morning however as per nursing staff claims that patient did not sleep last night and received Zyprexa IM dose for psychosis. Vital signs continued to show tachycardia however blood pressure has decreased. Patient did not appear to have any facial droop and no noticeable tremor. Patient was not able to answer any further questions however was directable and agreeable to go to group and continue taking medications. Mental Status Exam: General Appearance: Patient appears to be stated age is alert, and confused, minimally responds to commands. Patient has fair hygiene and grooming wearing street clothing and fair eye contact. Behavior: Patient is confused, wandering the hallways with his hands in the air. Speech: Patient's speech is illogical and inappropriate. Mood/Affect: Claims his mood is "okay" affect appears appropriate and anxious. Suicidality/Homicidality: Unable to assess Perceptions: Responding to internal stimuli, poor attention span. Though content/process: Patient tangential illogical and disorganized. Memory and concentration: Confused, unable to answer orientation questions or participating cognitive exam. Judgment and insight: poor/confused. Assessment Bipolar disorder, currently in manic episode with psychotic features. Patient is acutely confused this morning. Plan: -Patient continues to meet criteria for inpatient psychiatric admission for symptom stabilization and safety. Patient has signed adult voluntary form and medication consent and was placed in patient's chart. -Medications: Will discontinue paliperidone at this time and switch to Risperdal 2 mg twice a day for psychosis/mood stabilization. Continue with melatonin 3 mg nightly for sleep. Added on Depakene syrup 375 mg twice a day for mood stabilization. - Reviewed comprehensive panel, CBC with differential and EKG -When necessary Zyprexa IM for agitation/aggression. -NRT -not need this patient does not smoke. -SW on board for discharge planning. Patient will likely need discharge to once clinically stable and on Invega Sustenna long-acting injection.
[2019-06-23 12:40] LABS: Glucose,Whole Blood 160 mg/dL (75-99)
[2019-06-23 17:53] LABS: Glucose,Whole Blood 154 mg/dL (75-99)
[2019-06-23 20:07] LABS: Glucose,Whole Blood 196 mg/dL (75-99)
[2019-06-23] MEDS: MELATONIN 3 MG TABLET PO SCH (20:23)
[2019-06-23] MEDS: risperiDONE 2 MG TAB PO SCH (20:27)
[2019-06-24 05:29] LABS: Glucose,Whole Blood 129 mg/dL (75-99)
[2019-06-24 05:34] VITALS: TEMP 97.7
[2019-06-24 07:41] LABS: Glucose,Whole Blood 161 mg/dL (75-99)
[2019-06-24] MEDS: metFORMIN 500 MG TAB PO SCH (07:41)
[2019-06-24] MEDS: VALPROIC ACID ORAL SOLN 250 MG/5 ML CUP PO SCH (07:41)
[2019-06-24] MEDS: risperiDONE 2 MG TAB PO SCH (07:41)
[2019-06-24] MEDS: ATORVASTATIN 40 MG TAB PO SCH (07:42)
[2019-06-24] MEDS: LISINOPRIL 20 MG TAB PO SCH (07:42)
[2019-06-24] MEDS: APIXABAN 5 MG TAB PO SCH (07:42)
[2019-06-24] MEDS: Empagliflozin [Jardiance] PO SCH (07:47)
[2019-06-24] MEDS: INSULIN ASPART (NovoLOG) 100 UNIT/ML VIAL SQ SCH (08:10)
[2019-06-24] MEDS ORDERED: OLANZapine 10 MG VIAL IM STA (09:38)
[2019-06-24 10:03] LABS: Glucose,Whole Blood 305 mg/dL (75-99)
--- NOTE | 2019-06-24 10:33 | P.PN ---
Subjective Progress Note Date: 06/24/19 Principal diagnosis: Tachycardia, acute encephalopathy Paged by nursing regarding changes in mentation. Case was discussed with Dr. Lawrence. Apparently, patient's mentation has been waxing and waning. He currently has a one-to-one sitter. Nursing endorses rapid eye movement and tremors along with bizarre behavior. Patient was seen and examined. Patient reports slight shortness of breath related with exertion the bathroom. Apparently he has been pacing the hallways without any difficulties. Objective - Vital Signs Vital signs: Vital Signs Temp 97.7 F 06/24/19 05:33 Pulse 103 H 06/24/19 05:33 Resp 20 06/23/19 19:08 BP 101/55 06/24/19 05:33 Pulse Ox 98 06/24/19 05:33 - Exam General: [non toxic], [no distress], [appears at stated age] Derm: [warm], [dry] Head: [atraumatic], [normocephalic], [symmetric] Eyes: [EOMI], [no lid lag], [anicteric sclera] Mouth: [no lip lesion], [mucus membranes moist] Cardiovascular: [S1S2 reg], [tachycardic], [positive DP pulse bilateral], Lungs: [CTA bilateral], [no rhonchi, no rales] , [no accessory muscle use] Abdominal: [soft], [ nontender to palpation], [no guarding], [no appreciable organomegaly] Ext: [no gross muscle atrophy], [no edema], [no contractures], [chronic lower extremity venous stasis changes] Neuro: [ CN II-XI grossly intact without nystagmus], [no focal neuro deficits] Psych: [Alert], [oriented], [appropriate affect] - Labs CBC & Chem 7: 06/22/19 10:01 06/22/19 10:01 Labs: Abnormal Lab Results - Last 24 Hours (Table) 06/23/19 06/23/19 06/23/19 Range/Units 12:38 17:50 20:05 POC Glucose (mg/dL) 160 H 154 H 196 H (75-99) mg/dL 06/24/19 06/24/19 Range/Units 05:26 07:39 POC Glucose (mg/dL) 129 H 161 H (75-99) mg/dL Assessment and Plan Assessment: Acute encephalopathy Bilateral lower extremity DVT Tachycardia with hypoxia Diabetes mellitus with hyperglycemia Dyslipidemia A team called for acute changes in mentation along with hypoxia with persistent tachycardia. He was recently diagnosed with bilateral DVTs and started on Eliquis. CT head on previous admission in May 2019 was negative. N eurology evaluated him at that time and attribute it to his altered mental status to acute psychosis. TSH, RPR and B12 are within normal limits. CT head will be reordered to rule out acute CVA. We will continue Eliquis for recent diagnosis of DVT. CTA chest will be ordered to rule out PE. Continue insulin sliding scale for diabetes with hyperglycemia. Lisinopril has been added for hypertension though could be switched to beta willow for better control of patient's tachycardia. Continue atorvastatin for elevated LDL. Patient to be transferred to the medical side with telemetry.
[2019-06-24 10:36] VITALS: BP 110/59; PULSE 104; RESP 18
--- NOTE | 2019-06-24 12:18 | P.DS ---
Providers Date of admission: 06/19/19 20:55 Expected date of discharge: 06/24/19 Attending physician: Ryley Lawrence MD Consults: 06/19/19 20:58 Consult Physician Routine Consulting Provider: Adan Agee Consult Reason/Comments: medical management Do you want consulting provider notified?: Yes Primary care physician: Abad Alonzo MD - Discharge Diagnosis(es) (1) Acute psychosis Status: Acute Priority: High Hospital Course: Admission HPI: Patient is a 58-year-old -[place] male who is a history of mood disorder and manic episodes who currently lives alone. Patient presented to the hospital yesterday and was escorted by police after they were called twice for patient going to a local [employer] and yelling at people in the restaurant. Patient was recently discharged from the mental health unit on 06/08/19 on Zyprexa and Depakote. Patient was given Ativan yesterday prior to admission to the mental health unit. Patient claimed to have been confused and states that "these were blending into other days". He claims that he was disoriented and walking around his neighborhood and he also states that he believes that he "stay at out too late". He is talkative/hyperverbal and is tangential/circumstantial and having loose associations. Patient is for the most part cooperative with board writer however has poor judgment and reality testing. Patient claims that he was taking his medications however is not sure. He is alert and oriented 3 today. Patient denies any suicidal or homicidal ideations intent or plan. At this time patient denies any auditory or visual hallucinations. Patient denies using any recreational drugs at this time, denies smoking cigarettes. Hospital course: Upon admission to the unit patient was initially bizarre however was directable and cooperative. Patient was agreeable to commence treatment. Patient got along well with other patients on the unit and followed unit protocol. Patient however was waxing and waning in terms of his mental status and became confused at times and also psychotic however would subside after some time. Patient received several when necessary medications for acute psychosis including Zyprexa IM. Patient was also placed on one-to-one sitter for safety and orientation. Patient had fluctuating vital signs including tachycardia which would drop down to bradycardia and also elevated blood pressure. Patient was started on paliperidone which was then switched to risperidone to a dose of 2 mg twice a day for psychosis/mood stabilization and was also started on Depakene syrup 375 mg twice a day for mood stabilization. Patient was compliant with the medications and denied any side effects throughout hospital course. Patient was also seen by medical team for history and physical exam. The notice duplex bilateral was ordered on 06/22/2019 and found bilateral DVTs which patient was then started on eloquent. Throughout the course of the hospitalization patient continued to wax and wane in terms of his mentation and his confusion and the morning of discharge, patient became acutely psychotic and agitated and was found to have unstable blood pressure and heart rate. The A team was called to evaluate patient and patient was transferred to the medical floors for further evaluation, monitoring and testing. Mental status exam: General Appearance: Patient appears to be stated age is alert, attempts to cooperate however has waxing and waning of his mentation. Patient is in acute distress and has fair hygiene and grooming Behavior: Patient is anxious/bizarre at times however is directable. Speech: Patient's speech is fluent and nonpressured. Mood/Affect: Patient reports their mood is "alright", affect is congruent Suicidality/Homicidality: Patient denies having any suicidal or homicidal ideation intent or plan. Perceptions: Patient denies any auditory or visual hallucinations. Though content/process: Patient waxes and wanes in terms of his mentation and can be appropriate and logical however can switch to perseveration and agitation/loud tone of voice. Memory and concentration: Can be acutely confused, a and o 3 for the most part. Judgment and insight: Poor Impression: Acute psychosis Plan: -Throughout the course of the hospitalization patient continued to wax and wane in terms of his mentation and his confusion and the morning of discharge, patient became acutely psychotic and agitated and was found to have unstable blood pressure and heart rate. The A team was called to evaluate patient and patient was transferred to the medical floors for further evaluation, monitoring and testing. -Patient to receive a head CT to rule out any acute stroke, CTA of his chest to rule out PE, 2-D echo and will be on telemetry. -Will check creatinine kinase, CBC and BMP. -Psychiatry CL will continue to follow along. Allergies Allergy/AdvReac Type Severity Reaction Status Date / Time No Known Allergies Allergy Verified 06/19/19 22:15 Laboratory Results WBC 6.2 k/uL (3.8-10.6) 06/22/19 10:01 RBC 4.75 m/uL (4.30-5.90) 06/22/19 10:01 Hgb 13.4 gm/dL (13.0-17.5) 06/22/19 10:01 Hct 43.1 % (39.0-53.0) 06/22/19 10:01 MCV 90.9 fL (80.0-100.0) 06/22/19 10:01 MCH 28.3 pg (25.0-35.0) 06/22/19 10:01 MCHC 31.1 g/dL (31.0-37.0) 06/22/19 10:01 RDW 13.8 % (11.5-15.5) 06/22/19 10:01 Plt Count 190 k/uL (150-450) 06/22/19 10:01 Neutrophils % 71 % 06/22/19 10:01 Lymphocytes % 20 % 06/22/19 10:01 Monocytes % 7 % 06/22/19 10:01 Eosinophils % 1 % 06/22/19 10:01 Basophils % 1 % 06/22/19 10:01 Neutrophils # 4.4 k/uL (1.3-7.7) 06/22/19 10:01 Lymphocytes # 1.2 k/uL (1.0-4.8) 06/22/19 10:01 Monocytes # 0.4 k/uL (0-1.0) 06/22/19 10:01 Eosinophils # 0.0 k/uL (0-0.7) 06/22/19 10:01 Basophils # 0.0 k/uL (0-0.2) 06/22/19 10:01 D-Dimer 1.48 mg/L FEU (<0.60) H 06/21/19 19:34 Sodium 137 mmol/L (137-145) 06/22/19 10:01 Potassium 4.4 mmol/L (3.5-5.1) 06/22/19 10:01 Chloride 100 mmol/L (98-107) 06/22/19 10:01 Carbon Dioxide 26 mmol/L (22-30) 06/22/19 10:01 Anion Gap 11 mmol/L 06/22/19 10:01 BUN 29 mg/dL (9-20) H 06/22/19 10:01 Creatinine 1.24 mg/dL (0.66-1.25) 06/22/19 10:01 Est GFR (CKD-EPI)AfAm 73 (>60 ml/min/1.73 sqM) 06/22/19 10:01 Est GFR (CKD-EPI)NonAf 63 (>60 ml/min/1.73 sqM) 06/22/19 10:01 Glucose 232 mg/dL (74-99) H 06/22/19 10:01 POC Glucose (mg/dL) 305 mg/dL (75-99) H 06/24/19 10:00 POC Glu Leave Specialist Desean Schwarz 06/24/19 10:[address] Glu mg/dL 206 06/20/19 07:36 Hemoglobin A1c 8.8 % (4.0-6.0) H 06/20/19 07:36 Calcium 9.7 mg/dL (8.4-10.2) 06/22/19 10:01 Total Bilirubin 0.6 mg/dL (0.2-1.3) 06/22/19 10:01 AST 25 U/L (17-59) 06/22/19 10:01 ALT 13 U/L (4-49) 06/22/19 10:01 Alkaline Phosphatase 97 U/L (38-126) 06/22/19 10:01 Creatine Kinase 155 U/L (55-170) 06/22/19 10:01 Total Protein 7.6 g/dL (6.3-8.2) 06/22/19 10:01 Albumin 4.2 g/dL (3.5-5.0) 06/22/19 10:01 Triglycerides 90 mg/dL (<150) 06/20/19 07:36 Cholesterol 181 mg/dL (<200) 06/20/19 07:36 LDL Cholesterol, Calc 109 mg/dL (0-99) H 06/20/19 07:36 HDL Cholesterol 54 mg/dL (40-60) 06/20/19 07:36 TSH 2.910 mIU/L (0.465-4.680) 06/20/19 07:36 Valproic Acid 33.2 ug/mL 06/20/19 12:31 Vital Signs Temp 97.7 F 06/24/19 05:33 Pulse 104 H 06/24/19 10:35 Resp 18 06/24/19 10:35 BP 110/59 06/24/19 10:35 Pulse Ox 99 06/24/19 10:35 Intake & Output 06/23/19 06/24/19 06/24/19 18:59 06:59 18:59 Weight 93 kg Patient Condition at Discharge: Stable Plan - Discharge Summary Discharge Rx Participant: No New Discharge Prescriptions: Continue Pioglitazone [Actos] 30 mg PO DAILY Empagliflozin [Jardiance] 25 mg PO DAILY Dulaglutide [Trulicity] 1.5 mg SQ Q7D metFORMIN HCL [Glucophage] 1,000 mg PO BID Lisinopril 40 mg PO DAILY Atorvastatin [Lipitor] 40 mg PO DAILY Discontinued Divalproex ER [Depakote ER] 500 mg PO HS 28 Days tab.er.24h OLANZapine [ZyPREXA] 15 mg PO HS 28 Days tablet Discharge Medication List Atorvastatin [Lipitor] 40 mg PO DAILY 05/31/19 [History] Dulaglutide [Trulicity] 1.5 mg SQ Q7D 05/31/19 [History] Empagliflozin [Jardiance] 25 mg PO DAILY 05/31/19 [History] Lisinopril 40 mg PO DAILY 05/31/19 [History] Pioglitazone [Actos] 30 mg PO DAILY 05/31/19 [History] metFORMIN HCL [Glucophage] 1,000 mg PO BID 05/31/19 [History] Follow up Appointment(s)/Referral(s): None,Stated [REFERRING] - 1-2 days Activity/Diet/Wound Care/Special Instructions: Activity and diet as tolerated. Avoid the use of street drugs and alcohol. Take all medications as prescribed. When you are in need of refills on your medications please contact your medical provider and/or outpatient psychiatrist to have this done. Please go to scheduled outpatient appointment for aftercare treatment. If symptoms return or become worse, call the crisis line at and/or go to the nearest emergency room for evaluation. Discharge Disposition: DIS[facility]/TRANS TO A [facility]
== END 2019-06-24 10:20 | DRG 885 ==
LOC: EC 18:31 → 3MHU 20:55
PROVIDERS: ADMIT Psychiatry & Neurology Psychiatry; ATTEND Psychiatry & Neurology Psychiatry
DX: F23 Brief psychotic disorder (principal); G93.40 Encephalopathy, unspecified; I82.403 Acute embolism and thrombosis of unspecified deep veins of lower extremity, bilateral; E11.65 Type 2 diabetes mellitus with hyperglycemia; E78.5 Hyperlipidemia, unspecified; I10 Essential (primary) hypertension; R09.02 Hypoxemia; Z79.01 Long term (current) use of anticoagulants; Z79.899 Other long term (current) drug therapy; Z91.14 Patient's other noncompliance with medication regimen
CPT/HCPCS: 36415; 80053; 80061; 80164; 82075; 82550; 83036; 84443; 85025; 85379; 90686; 93005; 93970; 99285

== ENCOUNTER 2019-06-24 10:28 | Inpatient (IN) | payer BC ==
[2019-06-24 11:33] LABS: Glucose,Whole Blood 115 mg/dL (75-99)
[2019-06-24 12:02] LABS: Basophils % (A) 0 %; Eosinophils # (A) 0.1 k/uL (0-0.7); Eosinophils % (A) 1 %; HCT 40.5 % (39.0-53.0); Lymphocytes # (A) 1.1 k/uL (1.0-4.8); Lymphocytes % (A) 17 %; MCH 28.7 pg (25.0-35.0); MCHC 32.1 g/dL (31.0-37.0); MCV 89.4 fL (80.0-100.0); Mean Platelet Volume 7.5; Monocytes # (A) 0.6 k/uL (0-1.0); Monocytes % (A) 9 %; Neutrophils # (A) 4.7 k/uL (1.3-7.7); Neutrophils % (A) 72 %; Platelet Count 225 k/uL (150-450); RBC 4.53 m/uL (4.30-5.90); RDW 13.6 % (11.5-15.5); WBC 6.5 k/uL (3.8-10.6)
[2019-06-24 12:21] LABS: Albumin 3.9 g/dL (3.5-5.0); Calcium 9.6 mg/dL (8.4-10.2); Potassium 4.8 mmol/L (3.5-5.1); Total Bilirubin 0.5 mg/dL (0.2-1.3)
--- NOTE | 2019-06-24 12:23 | CT ---
EXAMINATION TYPE: CT brain wo con DATE OF EXAM: 06/24/2019 COMPARISON: 05/31/2019 HISTORY: 58-year-old male confusion, Mental status changes. TECHNIQUE: Examination was done in axial plane without intravenous contrast. Coronal and sagittal r econstructions performed. CT DLP: 1047.1 mGycm Automated exposure control for dose reduction was used. FINDINGS: There is no evidence of acute intracranial hemorrhage, acute ischemic changes, mass, mass-effect, or extra-axial fluid collection. There is no effacement of cerebral sulci or basal subarachnoid cister ns. There is no hydrocephalus. There is no midline shift. Ramirez-white matter distinction is preserv ed. Atherosclerotic calcifications within the bilateral carotid siphons. Frothy partial opacification within the bilateral maxillary sinuses. Mastoid air cells are well pneum atized. Undulating nasal septum. Orbits and globes appear intact. IMPRESSION: 1. No acute intracranial abnormality seen. 2. Frothy partial opacification of the maxillary sinuses. Correlate for acute sinusitis.
--- NOTE | 2019-06-24 12:34 | CT ---
EXAMINATION TYPE: CT angio chest DATE OF EXAM: 06/24/2019 COMPARISON: None HISTORY: 58-year-old male with Chest pain. TECHNIQUE: Contiguous axial scanning of the chest performed with IV Contrast, patient injected with 1 00 mL of Isovue 370. Coronal/sagittal MIP reconstructions performed. CT DLP: 389.7 mGycm Automated exposure control for dose reduction was used. FINDINGS: Heart normal size without pericardial effusion. No flattening of the interventricular septum or reflu x of contrast into the hepatic veins. LAD calcifications are present. Aorta normal caliber with conventional arch vessel branching anatomy. No thoracic lymphadenopathy by CT size criteria. While there is satisfactory opacification of the pulmonary arterial system, there is excessive motion artifact in the lower lungs limiting assessment for pulmonary emboli here. Embolic material is seen within the right lower lobar arterial branch extending into right lower lobe basilar segmental branch es, refer to axial images 72 through 85. Emboli elsewhere in the lower lungs is very limited in asses sment. No large central pulmonary embolus. Focal 1.9 cm subpleural opacity right base, axial image 115. No consolidation or pleural effusion. No thoracic lymphadenopathy by CT size criteria. Small hiatal hernia. Calcified granuloma within the caudate lobe. Mild thickening left adrenal gland. Moderate stool burden. Bones: Degenerative changes at the sternoclavicular joints. Mild endplate spondylosis mid to lower th oracic spine. IMPRESSION: 1. ASSESSMENT OF THE LOWER LUNGS LIMITED DUE TO BREATHING MOTION. MILD BURDEN OF PULMONARY EMBOLI IS SEEN INVOLVING RIGHT LOWER LOBAR AND BASILAR SEGMENTAL ARTERIAL BRANCHES OF THE RIGHT LOWER LOBE. NO CT EVIDENCE FOR RIGHT HEART STRAIN. 2. FOCAL 1.9 CM SUBPLEURAL OPACITY AT THE RIGHT BASE COULD REPRESENT AN AREA OF SMALL PULMONARY INFAR CT OR A FOCAL INFILTRATE. FOLLOW-UP IN 4-6 WEEKS TO ASSESS FOR CLEARANCE AND EXCLUDE THE POSSIBILITY OF A MASS. 3. SMALL HIATAL HERNIA. Critical findings called to Nurse Howard on [address] [place] [address] at 12:30pm.
[2019-06-24] MEDS ORDERED: ACETAMINOPHEN TAB 325 MG TAB PO PRN (13:46)
[2019-06-24] MEDS ORDERED: HYDROcodone/APAP 5-325MG 1 EACH TAB PO PRN (13:46)
[2019-06-24] MEDS ORDERED: NALOXONE 0.4 MG/ML 1 ML VIAL IV PRN (13:46)
[2019-06-24] MEDS ORDERED: SODIUM CHLORIDE 0.9% 1,000 ML IV ONE (13:46)
--- NOTE | 2019-06-24 13:57 | P.CN ---
Psychiatric Consult - . Consult date: 06/24/19 Consult:: 06/24/19 13:44 IDENTIFYING DATA: Patient is a 58-year-old -[place] male who is a history of mood disorder and manic episodes with psychotic features who currently lives alone. HPI: Patient initially presented to the hospital and was escorted by police after they were called twice for patient going to a local [employer] and yelling at people in the restaurant. Patient was recently discharged from the mental health unit on 06/08/19 on Zyprexa and Depakote. Patient was given Ativan prior to admission to the mental health unit. Patient at that time claimed to have been confused and states that "these were blending into other days". He was disoriented and walking around his neighborhood and he also states that he believes that he "stay at out too late". He was talkative/hyperverbal and tangential/circumstantial and having loose associations. Patient is for the most part cooperative with song writer however has poor judgment and reality testing. Patient claims that he was taking his medications however is not sure. Patient was directable to commence treatment voluntarily however patient's mental status was waxing and waning during hospitalization. Patient was becoming more psychotic and difficult to redirect and was seen in the hallways confused and walking around with his hands in the air. Patient was discharged from the mental health unit today and transferred to the medical floors to rule out a PE due to patient's unsteady vital signs and persistent tachycardia. Patient was seen early this afternoon on the medical floors with his sitter at the bedside. Patient was cooperative and joking around with song writer and spoke about buying everybody doughnuts. Patient appeared to be comfortable and more coherent and was alert and oriented 2 believes that it was June 28. She denies any shortness of breath or any chest pain and states that he went in for a head CT earlier. Patient is currently taking Depakene syrup along with Risperdal. PAST PSYCHIATRIC HISTORY: Patient states that patient has a history of mood disorder/manic episode last month and was admitted and discharged on 06/08/2019 for the mental health unit. Patient claimed that he was on Depakote 500 mg daily plus Zyprexa 15 mg daily at bedtime. He denies any history of suicide attempts. PMH: Diabetes mellitus, hypertension ALLERGIES: as per EMR CHEMICAL DEPENDENCY HISTORY: Denies FAMILY PSYCHIATRIC/SUBSTANCE USE HISTORY: denies SOCIAL HISTORY: Patient claims that he lives by himself at this time in a house and is retired. MENTAL STATUS EXAM: General Appearance: Patient appears to be stated age is alert, pleasant, and attempts to cooperate. Patient has marginal hygiene and grooming wearing hospital gown and fair eye contact. Behavior: Patient is calmly lying in bed without any agitated behavior. Joking around. Speech: Patient's speech is rapid/hyperverbal. Fluent. Mood/Affect: Patient reports their mood is "alright", affect is congruent and constricted. Suicidality/Homicidality: Patient denies having any suicidal or homicidal ideation intent or plan. Perceptions: Patient denies any auditory or visual hallucinations. Though content/process: Patient rambles, is tangential/circumstantial has im proved reality testing and judgment. Memory and concentration: AOX2, believes it is June 28, grossly intact for the purposes of this session. Fair attention span. Cannot spell "WORLD" backwards Judgment and insight: poor, improving mildly. IMPRESSIONS: Acute psychosis, likely delirium secondary to medical conditions Pulmonary embolism PLAN: -Delirium precautions recommended with patient including - avoiding use of narcotics and RN LIAISON sedatives, limit anticholinergic medications when possible, frequent re-orientation, minimize use of restraints, open window shades during the day and close them at night -Would recommend the following medication changes/additions: Please avoid giving any benzodiazepines as this may exacerbate delirium and patient's mentation. We'll start patient's medications including Risperdal 2 mg every morning +3 mg daily at bedtime for psychosis/mood stabilization, Depakene syrup 500 mg twice a day for mood stabilization. -Zyprexa IM PRN for agitation or acute psychosis -CT brain shows no acute intracranial abnormalities. CTA showed pulmonary embolism with a focal 1.9 cm subpleural opacity at the right base which could either be small pulmonary infarct versus focal infiltrate. -Patient will undergo echocardiogram. -Check CK, CBC and BMP -Continue with telemetry monitoring. -Continue 1:1 sitter for safety and orientation -Cannot leave AMA at this time. Patient will need a petition and certification if attempting to leave AMA. -Will continue to follow along 06/24/19 13:45
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
[2019-06-24 16:53] LABS: Glucose,Whole Blood 196 mg/dL (75-99)
[2019-06-24] MEDS: INSULIN ASPART (NovoLOG) 100 UNIT/ML VIAL SQ SCH ×2 (17:34→21:17)
[2019-06-24] MEDS: SODIUM CHLORIDE 0.9% 1,000 ML IV SCH ×2 (17:35→21:20)
[2019-06-24 20:22] LABS: Glucose,Whole Blood 194 mg/dL (75-99)
[2019-06-24] MEDS ORDERED: risperiDONE 1 MG TAB PO SCH (21:00)
[2019-06-24] MEDS: APIXABAN 5 MG TAB PO SCH (21:16)
[2019-06-24] MEDS: VALPROIC ACID ORAL SOLN 250 MG/5 ML CUP PO SCH (21:18)
[2019-06-24] MEDS: OLANZapine 10 MG VIAL IM PRN (23:01)
[2019-06-25] MEDS ORDERED: HALOPERIDOL LACTATE 5 MG/ML 1 ML VIAL IM SCH (04:00)
[2019-06-25 07:04] LABS: Glucose,Whole Blood 140 mg/dL (75-99)
[2019-06-25 07:48] LABS: African American GFR (CKD) >90 (>60 ml/min/1.73 sqM); Anion Gap 10 mmol/L; Blood Urea Nitrogen 26 mg/dL (9-20); Calcium 9.3 mg/dL (8.4-10.2); Carbon Dioxide 24 mmol/L (22-30); Chloride 106 mmol/L (98-107); Glucose 138 mg/dL (74-99); Non-African American GFR(CKD) >90 (>60 ml/min/1.73 sqM); Potassium 4.5 mmol/L (3.5-5.1); Sodium 140 mmol/L (137-145)
[2019-06-25] MEDS ORDERED: risperiDONE 2 MG TAB PO SCH (09:00)
[2019-06-25] MEDS: APIXABAN 5 MG TAB PO SCH ×2 (09:14→20:22)
[2019-06-25] MEDS: INSULIN ASPART (NovoLOG) 100 UNIT/ML VIAL SQ SCH ×4 (09:14→20:23)
[2019-06-25] MEDS: VALPROIC ACID ORAL SOLN 250 MG/5 ML CUP PO SCH ×2 (09:15→20:22)
[2019-06-25] MEDS: ATORVASTATIN 40 MG TAB PO SCH (09:18)
--- NOTE | 2019-06-25 10:58 | P.DS ---
Providers Date of admission: 06/24/19 10:42 Expected date of discharge: 06/25/19 Attending physician: Celine Brunner MD Consults: 06/24/19 10:54 Consult Physician Routine Consulting Provider: Ryley Lawrence Consult Reason/Comments: manic episodes Do you want consulting provider notified?: Yes Placement Type Exists?: Yes 06/25/19 10:26 Consult Physician Urgent Consulting Provider: Aren Nunez Consult Reason/Comments: rule out seizure/AMS Do you want consulting provider notified?: Yes Primary care physician: Celine Brunner MD Hospital Course: 58-year-old male with PMH of diabetes mellitus, hypertension, dyslipidemia, extensive psychiatric history is transferred from mental health unit to the medical floors. Majority of the H&P was done with the help of previous documentation. Patient appears somewhat manic and does not appear very reliable. Apparently, when he was in the mental health unit patient was waxing and waning with regard to his mentation. Bilateral lower extremity duplex was ordered from the ED for elevated d-dimer. Lower stephen duplex came back positive for bilateral DVT. He was started on Eliquis at that time. Patient was also noted to be persistently tachycardic though vitals were otherwise stable. His CBC was unremarkable. CMP shows BUN 35, creatinine 1.55, glucose of 112. Troponin was less than 0.012, EKG showing sinus tachycardia. CTA chest was ordered which was positive for PE. Brain CT was also ordered which showed no acute intracranial abnormality. Patient is admitted for altered mental status and persistent tachycardia with Psychiatry on board, rule out pulmonary embolus. TSH, B12 and RPR was checked during her previous admission and was negative. Patient was continued on Eliquis for positive PE and bilateral DVT. Patient initially had a creatinine of 1.55 which was thought to be due to dehydration. He was given 1 L bolus and continued on 100 mL of normal saline per hour. Repeat creatinine was within normal limits. Patient was seen and examined. No acute events overnight. Patient acting more bizarre this morning. Noted to have tongue fasciculation, turned towards the left and repeating the same words over and over again. Sitter is at bedside. He is responding and answering questions appropriately. Patient reports some pain in his lower extremities. He denies any chest pain or shortness of breath. No nausea or vomiting. No fever or chills. General: [non toxic], [no distress], [appears at stated age] Derm: [warm], [dry] Head: [atraumatic], [normocephalic], [symmetric] Eyes: [EOMI], [no lid lag], [anicteric sclera] Mouth: [no lip lesion], [mucus membranes moist] Cardiovascular: [S1S2 reg], [tachycardia], [positive DP pulse bilateral], Lungs: [CTA bilateral], [no rhonchi, no rales] , [no accessory muscle use] Abdominal: [soft], [ nontender to palpation], [no guarding], [no appreciable organomegaly] Ext: [no gross muscle atrophy], [no edema], [no contractures], [chronic venous stasis changes lower extremity bilateral], [negative Homans sign bilateral] Neuro: [Unable to perform program appropriately, moving all extremities, tongue fasciculations] Psych: [Pressured speech, repeating same words over and over again] Acute metabolic encephalopathy Tachycardia likely due to pulmonary embolus with bilateral lower extremity DVT Acute kidney injury Diabetes mellitus Hypertension Dyslipidemia CT brain negative for acute changes. TSH within normal limits. B12, RPR checked during previous admission, negative. Patient is hemodynamically stable and is not hypoxic. Plans: Obtain EEG and consult neurology to rule out medical causes for encephalopathy. Fall precautions. Follow psychiatry recommendations. CTA chest positive for PE. Bilateral duplex lower extremities positive for DVT. Plans: Continue Eliquis. Start metoprolol 12.5 mg twice a day for better control of tachycardia. Follow-up echocardiogram. Creatinine 1.55-within normal limits. Likely due to dehydration. Plans: Continue normal saline at 100 mL/h. Hold lisinopril. Repeat BMP tomorrow morning. Avoid nephrotoxins. Gwefl-et-uwoq glucose 140. Plans: Insulin sliding scale. Regular Accu-Cheks. Hypoglycemic precautions. BP 108/70. Plans: Monitor vitals, adjust medications as necessary. Lisinopril held due to acute kidney injury. Plans: Resume Lipitor. [Patient acting more bizarre this morning. EEG ordered along with neurology consult. If EEG is within normal limits and neurology cleared, he should be discharged back to mental health unit.] Pertinent Studies: CT brain, CTA chest, EEG Patient Condition at Discharge: Stable Plan - Discharge Summary Discharge Rx Participant: No New Discharge Prescriptions: New RX: Valproic Acid Oral Soln [Depakene Syrup] 500 mg PO BID ml RX: Apixaban [Eliquis] 10 mg PO BID tab RX: risperiDONE [RisperDAL] 3 mg PO HS tab RX: risperiDONE [RisperDAL] 2 mg PO DAILY tab RX: Acetaminophen Tab [Tylenol] 650 mg PO Q6HR PRN tab PRN Reason: Mild Pain Or Fever > 100.5 Continue RX: Pioglitazone [Actos] 30 mg PO DAILY RX: Empagliflozin [Jardiance] 25 mg PO DAILY RX: Dulaglutide [Trulicity] 1.5 mg SQ Q7D RX: metFORMIN HCL [Glucophage] 1,000 mg PO BID RX: Lisinopril 40 mg PO DAILY RX: Atorvastatin [Lipitor] 40 mg PO DAILY Discharge Medication List RX: Atorvastatin [Lipitor] 40 mg PO DAILY 05/31/19 [History] RX: Dulaglutide [Trulicity] 1.5 mg SQ Q7D 05/31/19 [History] RX: Empagliflozin [Jardiance] 25 mg PO DAILY 05/31/19 [History] RX: Lisinopril 40 mg PO DAILY 05/31/19 [History] RX: Pioglitazone [Actos] 30 mg PO DAILY 05/31/19 [History] RX: metFORMIN HCL [Glucophage] 1,000 mg PO BID 05/31/19 [History] RX: Acetaminophen Tab [Tylenol] 650 mg PO Q6HR PRN tab 06/24/19 [Rx] RX: Apixaban [Eliquis] 10 mg PO BID tab 06/24/19 [Rx] RX: Valproic Acid Oral Soln [Depakene Syrup] 500 mg PO BID ml 06/24/19 [Rx] RX: risperiDONE [RisperDAL] 2 mg PO DAILY tab 06/24/19 [Rx] RX: risperiDONE [RisperDAL] 3 mg PO HS tab 06/24/19 [Rx] Patient Instructions/Handouts: Pulmonary Embolism (DC) Discharge Disposition: TRANSFER TO PSYCH HOSP/UNIT Plan of Treatment: patient to continue on eliquis 10 mg bid to finish a 7 day course, then switch to 5 mg BID for 6 months
[2019-06-25 11:19] LABS: Glucose,Whole Blood 183 mg/dL (75-99)
[2019-06-25] MEDS: SODIUM CHLORIDE 0.9% 1,000 ML IV SCH ×2 (11:56→17:44)
--- NOTE | 2019-06-25 12:01 | ECHOF ---
Referral Reason:tachycardia MEASUREMENTS -------- HEIGHT: 175.3 cm WEIGHT: 91.6 kg BP: 109/74 RVIDd: 3.1 cm (< 3.3) IVSd: 1.1 cm (0.6 - 1.1) LVIDd: 3.1 cm (3.9 - 5.3) LVPWd: 0.9 cm (0.6 - 1.1) IVSs: 1.7 cm LVIDs: 1.7 cm LVPWs: 1.4 cm LA Diam: 3.3 cm (2.7 - 3.8) LAESV Index (A-L): 15.18 ml/m Ao Diam: 3.7 cm (2.0 - 3.7) AV Cusp: 2.3 cm (1.5 - 2.6) MV EXCURSION: 18.742 mm (> 18.000) MV EF SLOPE: 141 mm/s (70 - 150) EPSS: 0.5 cm MV E Samuel: 0.64 m/s MV DecT: 152 ms MV A Samuel: 0.79 m/s MV E/A Ratio: 0.80 FINDINGS -------- Resting tachycardia (HR>100bpm). This was a technically adequate study. The left ventricular size is normal. Left ventricular wall thickness is normal. Overall left vent ricular systolic function is normal with, an EF between 65 - 70 %. The right ventricle is normal in size. Normal LA size by volume 22+/-6 ml/m2. The right atrium is normal in size. Interatrial and interventricular septum intact. The aortic valve is trileaflet and appears structurally normal. The mitral valve is normal. The tricuspid valve appears structurally normal. There is no pulmonic regurgitation present. The aortic root size is normal. Normal inferior vena cava with normal inspiratory collapse consistent with estimated right atrial pre ssure of 5 mmHg. There is no pericardial effusion. CONCLUSIONS -------- 1. Resting tachycardia (HR>100bpm). 2. This was a technically adequate study. 3. The left ventricular size is normal. 4. Left ventricular wall thickness is normal. 5. Overall left ventricular systolic function is normal with, an EF between 65 - 70 %. 6. The right ventricle is normal in size. 7. Normal LA size by volume 22+/-6 ml/m2. 8. The right atrium is normal in size. 9. Interatrial and interventricular septum intact. 10. The aortic valve is trileaflet and appears structurally normal. 11. The mitral valve is normal. 12. The tricuspid valve appears structurally normal. 13. There is no pulmonic regurgitation present. 14. The aortic root size is normal. 15. Normal inferior vena cava with normal inspiratory collapse consistent with estimated right atrial pressure of 5 mmHg. 16. There is no pericardial effusion. HAND BULLDOZER: Jinny Sanders RDCS
[2019-06-25] MEDS: METOPROLOL TARTRATE 12.5 MG TAB PO SCH ×2 (12:07→20:22)
--- NOTE | 2019-06-25 13:48 | P.PN ---
Progress Note - Text Progress Note Date: 06/25/19 Interval History: Patient was seen for psychiatric follow-up today. Patient appeared to have been taking his medications and vital signs are reviewed and patient continues to have persistent tachycardia. As per nurse taking care of patient states that he has been continued to wax and wane in terms of his mental status and had a difficult time sleeping last night and received a when necessary Haldol for acute psychosis. Neurology has been consulted and patient recently had a EEG completed at the bedside and is awaiting review. Patient was seen at the bedside with a sitter and was leaning over to one side and was rambling illogically with his eyes closed. Patient however was responsive to keno writer and when asked to keno writer mcdonald he states that "you're Sylvester Clark's doctor". Patient claims that he is hearing voices today telling him to "get the hell out of here". Patient believes that he is in a doctor's office and does not know the date however does not does know his own name. Patient is not able to elaborate on how his night went and appears to be frightened. Patient also states that he is feeling unwell today and he doesn't know how to describe it. Patient also was mildly trembling and had sweaty palms and feels that "the room is on fire".. At this time patient denies any suicidal or homical ideations, intent or plan. Patient denies any visual hallucinations. Patient denies any side effects from the medications and has been compliant with meds. Patient minimally followed keno writer's commands. Mental Status Exam: General Appearance: Patient appears to be stated age is alert, attempts to cooperate however is confused and trembling in the bed and has sweaty palms. Patient has marginal hygiene and grooming wearing hospital gown and poor eye contact as he has his eyes closed. Behavior: Patient is lying in bed without any agitated behavior. Patient appears to be in mild distress. Speech: Patient's speech is hyperverbal. Fluent. Perseverates. Mood/Affect: Patient reports their mood is "not good", affect is congruent and constricted. Suicidality/Homicidality: Patient denies having any suicidal or homicidal ideation intent or plan. Perceptions: Patient admits to auditory hallucinations telling him to "get the hell out of here". Though content/process: Patient rambles, is tangential/circumstantial has poor reality testing and judgment. Memory and concentration: AOX1, believes he is in a doctor's office and does not know the date. Fair attention span. Cannot spell "WORLD" backwards. Judgment and insight: poor/confused. IMPRESSIONS: Acute psychosis, likely delirium secondary to medical conditions Pulmonary embolism PLAN: -Delirium precautions recommended with patient including - avoiding use of narcotics and JAIL KEEPER sedatives, limit anticholinergic medications when possible, frequent re-orientation, minimize use of restraints, open window shades during the day and close them at night -Would recommend the following medication changes/additions: Please avoid giving any benzodiazepines as this may exacerbate delirium and patient's mentation. We'll switch patient on to Zyprexa 5 mg daily +10 mg daily at bedtime for psychosis/mood stabilization, discontinued Risperdal. Continue with Depakene syrup 500 mg twice a day for mood stabilization. -Zyprexa IM PRN for agitation or acute psychosis -CT brain shows no acute intracranial abnormalities. CTA showed pulmonary embolism with a focal 1.9 cm subpleural opacity at the right base which could either be small pulmonary infarct versus focal infiltrate. -Awaiting neurology consultation and EEG report. -Continue following CBC and BMP and vitals. Project Manager/Design Manager asked nurse to take vitals of patient again including temperature as patient was sweating. -Continue with telemetry monitoring. -Continue 1:1 sitter for safety and orientation -Cannot leave AMA at this time. Patient will need a petition and certification if attempting to leave AMA. -Will continue to follow along, patient is currently not medically clear for transfer back to the mental health unit. We'll await further recommendations and appreciation of neurology consult and EEG report.
--- NOTE | 2019-06-25 16:56 | EEG ---
ELECTROENCEPHALOGRAM REPORT DATE OF SERVICE: 06/25/2019. PREAMBLE: This is a 58-year-old male with seizure-type activity. The patient was noted to be uncooperative, tense and confused during the study. The background consists of well developed, well regulated, predominantly mixed frequency of alpha and beta activity seen in bihemispheric region. Large amount of myogenic artifact seen in bihemispheric region during most of the study. Different stages of sleep were not seen. Photic driving response was not seen. No definitive focal or generalized epileptiform activity was seen. IMPRESSION: This is a very limited EEG due to excessive myogenic activity seen during most of the study. Otherwise, the EEG appeared normal, with no focal or epileptiform activity. If your suspicion for seizure is high, I suggest a prolonged, sleep-deprived EEG. MMODL / IJN: [id number] /
[2019-06-25] MEDS ORDERED: LIDOCAINE URO-JET JELLY 2% 5 ML KIT URETHRAL ONE (16:58)
[2019-06-25 17:37] LABS: Glucose,Whole Blood 119 mg/dL (75-99)
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
--- NOTE | 2019-06-25 20:14 | US ---
EXAMINATION TYPE: US carotid duplex BILAT DATE OF EXAM: 06/25/2019 COMPARISON: NONE CLINICAL HISTORY: Possible TIA. TIA, exam done portable. EXAM MEASUREMENTS: RIGHT: Peak Systolic Velocity (PSV) cm/sec ----- Right CCA: 109.5 ----- Right ICA: 93.1 ----- Right ECA: 135.1 ICA/CCA ratio: 0.9 RIGHT: End Diastole cm/sec ----- Right CCA: 12.4 ----- Right ICA: 30.4 ----- Right ECA: 0.0 LEFT: Peak Systolic Velocity (PSV) cm/sec ----- Left CCA: 111.6 ----- Left ICA: 103.0 ----- Left ECA: 108.0 ICA/CCA ratio: 0.9 LEFT: End Diastole cm/sec ----- Left CCA: 16.1 ----- Left ICA: 30.4 ----- Left ECA: 0.0 VERTEBRALS (direction of flow): Right Vertebral: Antegrade Left Vertebral: Antegrade Rhythm: Normal Elevated velocities - right proximal ECA and left proximal CCA, no significant stenosis. IMPRESSION: There is some elevated velocity in the left common carotid artery but no definite plaque seen. The images and measurements suggest less than 25% stenosis in both internal carotid arteries. Criteria for Assigning % of Stenosis / Diameter reduction (Estimation based on the indirect measurements of the internal carotid artery velocities (ICA PSV). 1. Normal (no stenosis)=ICA PSV < 125 cm/s: ratio < 2.0: ICA EDV<40 cm/s. 2. Less than 50% stenosis=ICA PSV < 125 cm/s: ratio < 2.0: ICA EDV<40 cm/s. 3. 50 to 69% stenosis=ICA PSV of 125 to 230 cm/s: ration 2.0 ? 4.0: ICA EDV 40-100 cm/s. 4. Greater than 70% stenosis to near occlusion= ICA PSV > 230 cm/s: ratio > 4.0: ICA EDV > 100 cm/s. 5. Near occlusion= ICA PSV velocities may be low or undetectable: variable ratio and ICA EDV. 6. Total occlusion=unable to detect flow.
[2019-06-25 20:37] LABS: Glucose,Whole Blood 173 mg/dL (75-99)
[2019-06-25] MEDS ORDERED: OLANZapine ODT 10 MG TAB PO SCH (21:00)
--- NOTE | 2019-06-25 21:22 | MR ---
EXAMINATION TYPE: MR brain wo con DATE OF EXAM: 06/25/2019 COMPARISON: HISTORY: Mental status change, TIA Versus CVA Multiplanar multiecho imaging of the brain was performed without contrast. There is mild cerebral cortical atrophy. There is no mass effect nor midline shift. There is no sign of intracranial hemorrhage. Diffusion images show no evidence of infarct. Brainstem is intact. Corpus callosum is intact. Sella turcica appears normal. There is single 3 mm focus of increased signal on the FLAIR images in the cortex left posterior frontal lobe of doubtful significance. There is mucosal thickening and fluid level in the right maxillary sinus. IMPRESSION: Minimal cerebral atrophy. Otherwise negative MR scan of the brain. Mild right maxillary sinusitis.
[2019-06-26] MEDS: SODIUM CHLORIDE 0.9% 1,000 ML IV SCH (05:08)
[2019-06-26 07:06] LABS: Glucose,Whole Blood 131 mg/dL (75-99)
[2019-06-26] MEDS: OLANZapine 10 MG VIAL IM PRN (08:08)
[2019-06-26] MEDS: APIXABAN 5 MG TAB PO SCH (08:48)
--- NOTE | 2019-06-26 08:48 | P.PN ---
Subjective Progress Note Date: 06/26/19 Principal diagnosis: Acute encephalopathy Patient was seen and examined. No acute events overnight. As per RN, given Zyprexa for bizarre behavior this morning. Overnight, concerns for urinary retention. Bladder scan showing greater than 500 mL, attempted straight cath with resistance, patient able to urinate freely this morning, bladder scan shows less than 100 mL. Patient appears more stable this morning and voices no concerns except for some shortness of breath. He denies any chest pain or palpitations. No nausea or vomiting. No fever or chills. Objective - Vital Signs Vital signs: Vital Signs Temp 98.2 F 06/26/19 04:43 Pulse 86 06/26/19 04:43 Resp 18 06/26/19 04:43 BP 91/51 06/26/19 04:43 Pulse Ox 93 L 06/26/19 04:43 Intake & Output 06/25/19 06/26/19 06/26/19 18:59 06:59 18:59 Intake Total 270 Output Total 450 Balance -180 Intake: Oral 270 Output: Urine 450 Other: Voiding Method Incontinent Diaper # Voids 1 1 - Exam General: [non toxic], [no distress], [appears at stated age] Derm: [warm], [dry] Head: [atraumatic], [normocephalic], [symmetric] Eyes: [EOMI], [no lid lag], [anicteric sclera] Mouth: [no lip lesion], [mucus membranes moist] Cardiovascular: [S1S2 reg], [tachycardia], [positive DP pulse bilateral], Lungs: [CTA bilateral], [no rhonchi, no rales] , [no accessory muscle use] Abdominal: [soft], [ nontender to palpation], [no guarding], [no appreciable organomegaly] Ext: [no gross muscle atrophy], [no edema], [no contractures], [chronic venous stasis changes lower extremity bilateral], [negative Homans sign bilateral] Neuro: [No focal deficits, repetitive motion with right hand] Psych: [Appears alert and answering questions appropriately] - Labs CBC & Chem 7: 06/24/19 11:02 06/25/19 07:06 Labs: Abnormal Lab Results - Last 24 Hours (Table) 06/25/19 06/25/19 06/25/19 Range/Units 11:17 17:35 20:16 POC Glucose (mg/dL) 183 H 119 H 173 H (75-99) mg/dL 06/26/19 Range/Units 07:03 POC Glucose (mg/dL) 131 H (75-99) mg/dL Assessment and Plan Assessment: Acute metabolic encephalopathy Urinary retention Tachycardia likely due to pulmonary embolus with bilateral lower extremity DVT Acute kidney injury Diabetes mellitus Hypertension Dyslipidemia CT brain negative for acute changes. TSH within normal limits. B12, RPR checked during previous admission, negative. EEG negative. MRI brain negative. Carotid duplex showing noncritical stenosis. Patient is hemodynamically stable and is not hypoxic. Plans: Doubt medical cause for altered mentation. Fall precautions. Patient is medically cleared for transfer back to psych. Appreciate neurology recommendations. Follow psychiatric consultation. Bladder scan this morning shows less than 100 mL. Plans: Attempt a voiding trial. CTA chest positive for PE. Bilateral duplex lower extremities positive for DVT. Plans: Continue Eliquis. Creatinine 1.55-within normal limits. Likely due to dehydration. Plans: Encourage hydration by mouth. Hold lisinopril. Avoid nephrotoxins. [id number] glucose 131. Plans: Insulin sliding scale. Regular Accu-Cheks. Hypoglycemic precautions. BP 91/51. Plans: Monitor vitals, adjust medications as necessary. Lisinopril held due to acute kidney injury. Continue metoprolol. Plans: Resume Lipitor. [Patient is admitted for mental health unit due to altered mentation and concerns for PE. He is already receiving treatment. Doubt medical cause for encephalopathy. CVA ruled out by neurology. He is medically cleared for transfer back to psychiatry.]
[2019-06-26] MEDS: INSULIN ASPART (NovoLOG) 100 UNIT/ML VIAL SQ SCH ×2 (08:49→12:19)
[2019-06-26] MEDS: METOPROLOL TARTRATE 12.5 MG TAB PO SCH (08:49)
[2019-06-26] MEDS: ATORVASTATIN 40 MG TAB PO SCH (08:49)
[2019-06-26] MEDS ORDERED: OLANZapine ODT 5 MG TAB PO SCH (09:00)
[2019-06-26] MEDS: VALPROIC ACID ORAL SOLN 250 MG/5 ML CUP PO SCH (09:27)
[2019-06-26 11:27] LABS: Glucose,Whole Blood 123 mg/dL (75-99)
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
[2019-06-26 12:27] VITALS: BP 107/71; PULSE 77; RESP 17; TEMP 97.8
[2019-06-26 17:15] LABS: Glucose,Whole Blood 171 mg/dL (75-99)
== END 2019-06-26 17:22 | DRG 175 ==
LOC: 5NMEDONC 10:42
PROVIDERS: ADMIT Family Medicine; ATTEND Family Medicine
DX: I26.99 Other pulmonary embolism without acute cor pulmonale (principal); G93.41 Metabolic encephalopathy; N17.9 Acute kidney failure, unspecified; F23 Brief psychotic disorder; I82.403 Acute embolism and thrombosis of unspecified deep veins of lower extremity, bilateral; F05 Delirium due to known physiological condition; E86.0 Dehydration; E78.5 Hyperlipidemia, unspecified; I10 Essential (primary) hypertension; R32 Unspecified urinary incontinence; R33.9 Retention of urine, unspecified; R39.12 Poor urinary stream; E11.9 Type 2 diabetes mellitus without complications; Z86.718 Personal history of other venous thrombosis and embolism; Z79.01 Long term (current) use of anticoagulants; Z79.84 Long term (current) use of oral hypoglycemic drugs; Z79.899 Other long term (current) drug therapy; Z82.3 Family history of stroke; Z80.9 Family history of malignant neoplasm, unspecified
CPT/HCPCS: 70450; 70551; 71275; 80048; 80053; 82550; 84484; 85025; 93005; 93306; 93880; 95816

== ENCOUNTER 2019-06-26 17:18 | Inpatient (IN) | payer BC ==
[2019-06-26] MEDS ORDERED: MAG HYDROX/AL HYDROX/SIMETH 30 ML CUP PO PRN (17:23)
[2019-06-26] MEDS ORDERED: OLANZapine 10 MG VIAL IM PRN (17:30)
[2019-06-26 18:39] LABS: Glucose,Whole Blood 215 mg/dL (75-99)
[2019-06-26] MEDS: APIXABAN 5 MG TAB PO SCH (19:55)
[2019-06-26] MEDS: ACETAMINOPHEN TAB 325 MG TAB PO PRN (19:55)
[2019-06-26] MEDS: OLANZapine ODT 10 MG TAB PO SCH (19:55)
[2019-06-26] MEDS: LORazepam 1 MG TAB PO PRN (19:55)
[2019-06-26 19:56] LABS: Glucose,Whole Blood 188 mg/dL (75-99)
[2019-06-26] MEDS: INSULIN ASPART (NovoLOG) 100 UNIT/ML VIAL SQ SCH (19:57)
[2019-06-27] MEDS: METOPROLOL TARTRATE 12.5 MG TAB PO SCH ×3 (02:12→20:43)
[2019-06-27] MEDS: ACETAMINOPHEN TAB 325 MG TAB PO PRN ×2 (03:05→20:46)
[2019-06-27] MEDS: LORazepam 1 MG TAB PO PRN ×4 (03:05→20:48)
[2019-06-27 07:52] LABS: Glucose,Whole Blood 122 mg/dL (75-99)
[2019-06-27] MEDS: INSULIN ASPART (NovoLOG) 100 UNIT/ML VIAL SQ SCH ×4 (08:03→20:05)
[2019-06-27] MEDS: VALPROIC ACID ORAL SOLN 250 MG/5 ML CUP PO SCH ×3 (08:16→20:42)
[2019-06-27] MEDS: ATORVASTATIN 40 MG TAB PO SCH (08:17)
[2019-06-27] MEDS: OLANZapine ODT 5 MG TAB PO SCH (08:17)
[2019-06-27] MEDS: APIXABAN 5 MG TAB PO SCH ×2 (08:17→20:42)
[2019-06-27 08:43] LABS: Cholesterol 176 mg/dL (<200); HDL Cholesterol 56 mg/dL (40-60); LDL Cholesterol,Calculated 98 mg/dL (0-99); Triglycerides 112 mg/dL (<150)
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
[2019-06-27 13:01] LABS: Glucose,Whole Blood 148 mg/dL (75-99)
[2019-06-27 17:28] LABS: Calcium 9.5 mg/dL (8.4-10.2); Potassium 4.4 mmol/L (3.5-5.1)
[2019-06-27 17:36] LABS: Glucose,Whole Blood 163 mg/dL (75-99)
[2019-06-27 19:58] LABS: Glucose,Whole Blood 168 mg/dL (75-99)
[2019-06-27] MEDS: OLANZapine ODT 10 MG TAB PO SCH (20:42)
[2019-06-28 07:43] LABS: Glucose,Whole Blood 153 mg/dL (75-99)
[2019-06-28] MEDS: INSULIN ASPART (NovoLOG) 100 UNIT/ML VIAL SQ SCH ×4 (07:45→22:04)
[2019-06-28] MEDS: LORazepam 1 MG TAB PO PRN ×2 (08:11→19:58)
[2019-06-28] MEDS: METOPROLOL TARTRATE 12.5 MG TAB PO SCH ×2 (08:11→19:58)
[2019-06-28] MEDS: OLANZapine ODT 5 MG TAB PO SCH (08:12)
[2019-06-28] MEDS: VALPROIC ACID ORAL SOLN 250 MG/5 ML CUP PO SCH ×2 (08:12→19:58)
[2019-06-28] MEDS: ATORVASTATIN 40 MG TAB PO SCH (08:12)
[2019-06-28] MEDS: APIXABAN 5 MG TAB PO SCH ×2 (08:12→19:58)
[2019-06-28 09:54] LABS: Hemoglobin A1C 9.2 % (4.0-6.0)
[2019-06-28] MEDS ORDERED: OLANZapine ODT 5 MG TAB PO ONE (11:30)
[2019-06-28 12:38] LABS: Glucose,Whole Blood 161 mg/dL (75-99)
--- NOTE | 2019-06-28 16:36 | PN ---
PROGRESS NOTE DATE OF SERVICE: 06/28/2019 CHIEF COMPLAINT: The patient was disorganized and confused. He was making of statements of harm to himself and others. He had delusions and periods of agitation. INTERVAL HISTORY: The patient continues to struggle. He had a quiet evening last night. He continues to be quite disorganized in his thoughts. He will have random verbalizations, though it is very difficult to follow his train of thought. He slept fairly well last night. Today he has been up. He will attend groups and will be mostly a passive participant. Staff indicate that there have been periods where he is more organized in his thoughts and can have some appropriate conversation along with being fairly oriented to his situation. Much of the time he is in a disorganized state where he will simply ramble and not make connections. When I saw him, he talked continuously through the interview. Most of what he said was disconnected or disjointed. He made repetitive comments. He was not able to respond in any direct way to any of my questions. Noted that his Depakote level at 0400 was 39.4. He appears to tolerate his psychotropic medications. MENTAL STATUS: The patient had pressured speech, he talked in a soft voice, at times he mumbled, he talked continuously, though most of what he said was disorganized. He was confused. He made some effort to answer questions, though his responses were disconnected from the questions asked. Mostly he spoke in phrases rather than sentences. His affect was anxious. His mood depressed. He was significantly distressed. It was difficult to assess for thought disorder. ASSESSMENT: I will continue the current diagnosis and treatment plan. It does appear that his medical workup was negative in regards to range of general health concerns, two CT scans were negative, laboratory work has been within normal range other than some elevation in glucose into the 150 range. I will increase the patient's Zyprexa to 10 mg three times a day. He may be on a subtherapeutic level of Depakote, though will redraw his laboratories in one or two days. We will focus on stabilization and discharge planning. MMMIRNAL / ZACN: [id number] /
[2019-06-28] MEDS: OLANZapine ODT 10 MG TAB PO SCH ×2 (17:22→22:04)
[2019-06-28 18:05] LABS: Glucose,Whole Blood 180 mg/dL (75-99)
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
[2019-06-28] MEDS: ACETAMINOPHEN TAB 325 MG TAB PO PRN (19:57)
[2019-06-28 20:24] LABS: Glucose,Whole Blood 177 mg/dL (75-99)
[2019-06-29 07:52] LABS: Glucose,Whole Blood 202 mg/dL (75-99)
[2019-06-29] MEDS ORDERED: LORazepam 2 MG/ML INJ IM STA ×2 (07:59→12:29)
[2019-06-29] MEDS: INSULIN ASPART (NovoLOG) 100 UNIT/ML VIAL SQ SCH ×4 (08:00→20:23)
--- NOTE | 2019-06-29 08:26 | PN ---
PROGRESS NOTE DATE OF SERVICE: 06/29/2019 CHIEF COMPLAINT: The patient was disorganized and confused. He was making statements of harm to himself and others. He had delusions and periods of agitation. INTERVAL HISTORY: The patient continues to be quite disorganized in his thoughts. He received Ativan 1 mg IM at 2000 hours last evening for anxiety. Staff documented that it seemed to help calm him. He was seen yesterday by Dr. Aren Nunez for neurology followup. Dr. Aern Nunez noted that the MRI and other testing has been negative for any acute neurologic issues. His assessment was that the patient has altered mental status related to acute psychosis. The patient has had some times where he has difficulty with ambulation, though Dr. Aren Nunez's evaluation noted that he has normal strength in his lower extremities bilaterally and suspects that some of his gait issues also relate to psychosis. He slept fairly well last night, today he has been up. He comes out in the day area. He wanders slowly. He has 1:1 staffing. At one point he tried to walk into the nursing station, took quite a bit of encouragement to get him to come out as soon as he was assisted out of the doorway, he went down to the ground with staff supporting him. As he went down, he sat on the floor for a while. He was then assisted into wheelchair. Staff indicated that when he first woke up in the morning, he was responding appropriately to some basic questions, though did not seem to respond any more than that to orienting questions. Mostly it was that he responded appropriately to questions about how he was doing and if he needed anything. When I saw him, he had random comments. It was difficult to follow his train of thought. He appears to tolerate his psychotropic medications, mental status, patient was restless. He spoke with a soft monotone voice. He made random disjointed comments. He did not speak in sentences. His affect was blunted, his mood reserved. It was difficult to assess his level of distress. He continues to show apparent psychotic symptoms that are quite advanced. ASSESSMENT: I will continue the current diagnosis and treatment plan. The patient will continue Zyprexa 10 mg 3 times a day. I will continue to evaluate there may be possibilities of catatonia as part of his presentation. There might be reason to trial IM Ativan or Ambien in this regard. I would also consider adding a second antipsychotic medication given the severity of his presentation. We will continue to monitor and work towards stabilization and discharge planning. CAMILA / STORM: [id number] /
[2019-06-29] MEDS: OLANZapine ODT 10 MG TAB PO SCH ×3 (08:30→21:37)
[2019-06-29] MEDS: APIXABAN 5 MG TAB PO SCH ×2 (08:30→20:25)
[2019-06-29] MEDS: VALPROIC ACID ORAL SOLN 250 MG/5 ML CUP PO SCH ×2 (08:30→20:26)
[2019-06-29] MEDS: METOPROLOL TARTRATE 12.5 MG TAB PO SCH ×2 (08:33→20:25)
[2019-06-29] MEDS: ATORVASTATIN 40 MG TAB PO SCH (09:04)
[2019-06-29 12:41] LABS: Glucose,Whole Blood 139 mg/dL (75-99)
[2019-06-29 17:43] LABS: Glucose,Whole Blood 154 mg/dL (75-99)
[2019-06-29 20:01] LABS: Glucose,Whole Blood 177 mg/dL (75-99)
[2019-06-30] MEDS: LORazepam 1 MG TAB PO PRN ×2 (03:45→16:36)
[2019-06-30 08:02] LABS: Glucose,Whole Blood 167 mg/dL (75-99)
[2019-06-30] MEDS: APIXABAN 5 MG TAB PO SCH ×2 (08:02→20:21)
[2019-06-30] MEDS: ATORVASTATIN 40 MG TAB PO SCH (08:02)
[2019-06-30] MEDS: METOPROLOL TARTRATE 12.5 MG TAB PO SCH ×2 (08:03→20:23)
[2019-06-30] MEDS: OLANZapine ODT 10 MG TAB PO SCH ×3 (08:04→20:24)
[2019-06-30] MEDS: INSULIN ASPART (NovoLOG) 100 UNIT/ML VIAL SQ SCH ×4 (08:04→20:22)
[2019-06-30] MEDS: VALPROIC ACID ORAL SOLN 250 MG/5 ML CUP PO SCH ×2 (08:04→20:24)
--- NOTE | 2019-06-30 08:09 | PN ---
PROGRESS NOTE DATE OF SERVICE: 06/30/2019 CHIEF COMPLAINT: The patient was disorganized and confused. He was making statements of harm to himself and others. He had delusions and periods of agitation. INTERVAL HISTORY: Patient has been doing fair. He continues to be quite disorganized in thoughts and behavior. It is noteworthy that he does seem to show some positive response to Ativan challenge. He received 2 doses of Ativan IM yesterday and it was noted after his second dose I saw him a few hours later he was able to say "Hel doctor". I asked him where he was. He said [facility] in [place]. He continues to wander. He does not achieve full orientation. He generally is cooperative. He tolerates his psychotropic medications. MENTAL STATUS: I saw the patient this morning. He did not remember my name, though he was able to say he was at [facility]. He otherwise talked in a somewhat rambling manner with disconnected statements. He followed directions. His affect was in a reasonable range. His mood was reserved. He did not appear to be significantly distressed. He continues to be moderately disoriented and disorganized in thoughts. ASSESSMENT: I will continue the current diagnosis, though have added a diagnosis of catatonia. I will give a trial of Ambien 10 mg. Ambien has been an alternative treatment for acute catatonic symptoms. He does respond to Ativan. He also does have some sedative affects initially from the medication. If he does not show response to Ambien, we may need to look at increasing his Ativan dose. We will focus on stabilization and discharge planning. MMMIRNAL / ZACN: [id number] /
[2019-06-30] MEDS ORDERED: ZOLPIDEM 10 MG TAB PO ONE (08:10)
[2019-06-30 10:07] LABS: HCT 42.7 % (39.0-53.0); HGB 13.5 gm/dL (13.0-17.5); MCH 28.5 pg (25.0-35.0); MCHC 31.6 g/dL (31.0-37.0); MCV 90.1 fL (80.0-100.0); Mean Platelet Volume 7.3; Platelet Count 253 k/uL (150-450); RBC 4.74 m/uL (4.30-5.90); RDW 13.8 % (11.5-15.5); WBC 5.2 k/uL (3.8-10.6)
[2019-06-30 10:23] LABS: Calcium 9.5 mg/dL (8.4-10.2); Magnesium 1.4 mg/dL (1.6-2.3); Phosphorus 3.4 mg/dL (2.5-4.5); Potassium 4.4 mmol/L (3.5-5.1)
[2019-06-30 12:01] LABS: Glucose,Whole Blood 161 mg/dL (75-99)
[2019-06-30 12:46] LABS: Glucose,Whole Blood 144 mg/dL (75-99)
--- NOTE | 2019-06-30 14:55 | P.PN ---
Subjective Progress Note Date: 06/30/19 Principal diagnosis: weakness Called to see patient by nursing staff regarding weakness and falls. Patient seen and examined at bedside. He is confused and it take several prompts to follow commands. He is focused on holding my hands and stethoscope. He denies chest pain, shortness of breath, no headache, no nausea. Objective - Vital Signs Vital signs: Vital Signs Temp 98.7 F 06/30/19 03:50 Pulse 118 H 06/30/19 08:08 Resp 20 06/30/19 08:08 BP 187/98 06/30/19 08:08 Pulse Ox 96 06/30/19 08:45 Intake & Output 06/29/19 06/30/19 06/30/19 18:59 06:59 18:59 Output Total 0 Balance 0 Weight 92 kg Output: Post Void Residual 0 - Exam General: non toxic, no distress, appears at stated age Derm: warm, dry Head: atraumatic, normocephalic, symmetric Eyes: EOMI, no lid lag, anicteric sclera Mouth: no lip lesion, mucus membranes moist Cardiovascular: S1S2 reg, no murmur, positive posterior tibial pulse bilateral, Lungs: CTA bilateral, no rhonchi, no rales , no accessory muscle use Abdominal: soft, nontender to palpation, no guarding, no appreciable organomegaly Ext: no gross muscle atrophy, no edema, no contractures Neuro: CN II-XI intact, muslce strength equal and 5/5 in upper extremities, equal and 4/4 in lowe extremities, light touch intact all 4 extremities and bilateral face Psych: Alert,confused, slow to respond to commands - Labs CBC & Chem 7: 06/30/19 09:32 06/30/19 09:32 Labs: Abnormal Lab Results - Last 24 Hours (Table) 06/29/19 06/29/19 06/29/19 Range/Units 12:35 17:39 19:59 POC Glucose (mg/dL) 139 H 154 H 177 H (75-99) mg/dL 06/30/19 Range/Units 07:44 POC Glucose (mg/dL) 167 H (75-99) mg/dL Assessment and Plan Assessment: Gait instability - neuro exam unremarkable - consult PT - check for metabolic disturbance- - orthostatics negative - already seen by neuro and no signs of stroked, had an MRI which was negative. Hypomagnesemia - replace and recheck in 2 days DM 2 - BS sub optimal - metformin restarted - A1C 9.4 Recent PE and DVT - continue eliquis tachycardia - on lopressor - likely compensatory Thank you for allowing us to participate in the care of this pleasant patient. Do not hesitate to contact us with questions. Someone can be reached from the [facility] hospitalist group all hours of the day at [phone] or via [employer] for the rest of us. Please contact us prior to discharge to coordinate eliquis for discharge.
[2019-06-30] MEDS: MAGNESIUM OXIDE 400 MG TAB PO SCH (15:52)
[2019-06-30 17:47] LABS: Glucose,Whole Blood 179 mg/dL (75-99)
[2019-06-30 19:50] LABS: Glucose,Whole Blood 259 mg/dL (75-99)
[2019-06-30] MEDS: metFORMIN 500 MG TAB PO SCH (20:23)
[2019-07-01] MEDS: LORazepam 1 MG TAB PO PRN ×3 (00:43→22:45)
[2019-07-01 07:43] LABS: Glucose,Whole Blood 139 mg/dL (75-99)
[2019-07-01] MEDS: APIXABAN 5 MG TAB PO SCH ×2 (08:09→20:23)
[2019-07-01] MEDS: MAGNESIUM OXIDE 400 MG TAB PO SCH (08:10)
[2019-07-01] MEDS: METOPROLOL TARTRATE 12.5 MG TAB PO SCH ×2 (08:10→20:23)
[2019-07-01] MEDS: ATORVASTATIN 40 MG TAB PO SCH (08:10)
[2019-07-01] MEDS: metFORMIN 500 MG TAB PO SCH ×2 (08:10→20:23)
[2019-07-01] MEDS: OLANZapine ODT 10 MG TAB PO SCH ×3 (08:11→20:24)
[2019-07-01] MEDS: VALPROIC ACID ORAL SOLN 250 MG/5 ML CUP PO SCH ×2 (08:11→20:24)
[2019-07-01] MEDS: INSULIN ASPART (NovoLOG) 100 UNIT/ML VIAL SQ SCH ×4 (08:26→20:22)
[2019-07-01] MEDS ORDERED: ZOLPIDEM 10 MG TAB PO ONE ×2 (13:58→18:00)
[2019-07-01 17:51] LABS: Glucose,Whole Blood 201 mg/dL (75-99)
[2019-07-01 20:12] LABS: Glucose,Whole Blood 211 mg/dL (75-99)
--- NOTE | 2019-07-01 20:59 | PN ---
PROGRESS NOTE DATE OF SERVICE: 07/01/2019. CHIEF COMPLAINT: The patient was disorganized and confused. He was making statements of harm to himself and others. He had delusions and periods of agitation. INTERVAL HISTORY: The patient has been doing fair. He continues to be quite disorganized in his thoughts. He had a quiet evening last night. He did wander about the unit. He continued to show quite a bit of verbalizations, though most of what he says is disconnected and disjointed. He slept fairly well last night. Today he has been up. He continues to wander about the unit. He was given a dose of Ambien later in the morning today. He seemed to sleep for a little bit after that, though then was up and about. He continues with disorganized thoughts. He appears to tolerate his psychotropic medications. MENTAL STATUS: Patient was quite restless when I talked to him. He talked with disconnected statements as he has been. He made a few appropriate comments, though most were disjointed. His affect was somewhat constricted, his mood reserved. It was difficult to assess his level of distress. ASSESSMENT: I will continue the current diagnosis and treatment plan. I will initiate a dose of Ativan tomorrow morning 1 mg p.o. I would look to possibly get him on a regular regimen of Ativan for the indication of catatonic excitement related to his underlying psychiatric condition, which appears to be bipolar disorder. I will continue Zyprexa 10 mg 3 times a day. We will continue to monitor for mood-related issues. We will focus on stabilization and discharge planning. MMMIRNAL / ZACN: [id number] /
[2019-07-02] MEDS: ACETAMINOPHEN TAB 325 MG TAB PO PRN (05:58)
[2019-07-02] MEDS: LORazepam 1 MG TAB PO PRN ×2 (05:58→21:37)
[2019-07-02 08:06] LABS: Glucose,Whole Blood 139 mg/dL (75-99)
[2019-07-02] MEDS: METOPROLOL TARTRATE 12.5 MG TAB PO SCH ×2 (08:09→20:31)
[2019-07-02] MEDS: VALPROIC ACID ORAL SOLN 250 MG/5 ML CUP PO SCH ×2 (08:09→20:32)
[2019-07-02] MEDS: APIXABAN 5 MG TAB PO SCH ×2 (08:10→20:33)
[2019-07-02] MEDS: ATORVASTATIN 40 MG TAB PO SCH (08:11)
[2019-07-02] MEDS: OLANZapine ODT 10 MG TAB PO SCH ×3 (08:11→22:23)
[2019-07-02] MEDS: MAGNESIUM OXIDE 400 MG TAB PO SCH (08:11)
[2019-07-02] MEDS: metFORMIN 500 MG TAB PO SCH ×2 (08:11→20:32)
[2019-07-02] MEDS: LORazepam 1 MG TAB PO SCH (08:12)
[2019-07-02] MEDS: INSULIN ASPART (NovoLOG) 100 UNIT/ML VIAL SQ SCH ×4 (08:13→20:32)
[2019-07-02 12:51] LABS: Glucose,Whole Blood 130 mg/dL (75-99)
--- NOTE | 2019-07-02 13:05 | PN ---
PROGRESS NOTE DATE OF SERVICE: 07/02/2019. CHIEF COMPLAINT: The patient was disorganized and confused. He was making statements of harm to himself and others. He had delusions and periods of agitation. INTERVAL HISTORY: The patient has been doing fair. He continues with ups and downs in his function. He shows only limited periods where his cognition seems to improve. Last evening he was out on the unit. He wanders about. Generally, he maintained a fairly calm manner. He did not get into any periods of agitation or distressed. He slept fairly well last night until early in the morning. About 6 in the morning, he got into a fairly restless agitated state. He received Ativan 1 mg p.o. p.r.n. Today, he has been up. He wanders about. He continues to talk with periods where he will have the rambling speech and other times he can be quiet. He has been started on a regular dose of Ativan. He continues to wander through the unit. He has a quiet manner today. He is able to tell me that he is at [facility]. He otherwise does not respond well to other orienting questions. He tolerates his psychotropic medications. MENTAL STATUS: Patient gave fair eye contact. Psychomotor activity was slowed. Speech was monotone. He answered questions with brief responses. Mostly his thoughts were disconnected. He spoke in short phrases that were not connected one to the next. His affect was blunted. His mood was quiet. He did not appear to be significantly distressed. ASSESSMENT: I will continue the current diagnosis and treatment plan. Patient is started on Ativan 1 mg 3 times a day. The indication for Ativan is for treatment of catatonia. The diagnosis of catatonia would relate to mood disorder, possibly bipolar disorder. He has shown periods of possibly having catatonic excitement. It is noteworthy that the neurologic workup has been negative for any clear organic issues. On the other hand, much of his presentation strongly suggests an organic condition. If he does not show any consistent response to Ativan over a few days of treatment, then the consideration is for either titrating up on Ativan further or possibly discontinuing altogether. In addition to Ativan, he is on Zyprexa 10 mg 3 times a day for psychosis and Depakote 500 mg twice a day. His last Depakote level on the was 39. I will order a Depakote level for Friday. We will continue to focus on stabilization and discharge planning. MMODL / IJN: [id number] /
[2019-07-02 17:31] LABS: Glucose,Whole Blood 134 mg/dL (75-99)
[2019-07-02 20:00] LABS: Glucose,Whole Blood 217 mg/dL (75-99)
[2019-07-02] MEDS ORDERED: cloNIDine HCL 0.2 MG TAB PO STA (21:14)
[2019-07-02] MEDS ORDERED: ASPIRIN 325 MG TAB PO SCH (21:45)
[2019-07-02 22:16] LABS: Basophils # (A) 0.1 k/uL (0-0.2); Basophils % (A) 1 %; Eosinophils # (A) 0.1 k/uL (0-0.7); Eosinophils % (A) 3 %; HCT 40.9 % (39.0-53.0); HGB 12.7 gm/dL (13.0-17.5); Lymphocytes # (A) 0.9 k/uL (1.0-4.8); Lymphocytes % (A) 18 %; MCH 27.9 pg (25.0-35.0); MCHC 31.1 g/dL (31.0-37.0); MCV 89.7 fL (80.0-100.0); Mean Platelet Volume 7.2; Monocytes # (A) 0.6 k/uL (0-1.0); Monocytes % (A) 11 %; Neutrophils # (A) 3.4 k/uL (1.3-7.7); Neutrophils % (A) 64 %; Platelet Count 211 k/uL (150-450); RBC 4.56 m/uL (4.30-5.90); RDW 13.9 % (11.5-15.5); WBC 5.3 k/uL (3.8-10.6)
[2019-07-02 22:19] LABS: African American GFR (CKD) >90 (>60 ml/min/1.73 sqM); Anion Gap 11 mmol/L; Blood Urea Nitrogen 21 mg/dL (9-20); Calcium 9.2 mg/dL (8.4-10.2); Carbon Dioxide 25 mmol/L (22-30); Chloride 102 mmol/L (98-107); Glucose 268 mg/dL (74-99); Magnesium 1.3 mg/dL (1.6-2.3); Non-African American GFR(CKD) >90 (>60 ml/min/1.73 sqM); Potassium 4.4 mmol/L (3.5-5.1); Sodium 138 mmol/L (137-145)
--- NOTE | 2019-07-02 23:08 | P.PN ---
Progress Note - Text Progress Note Date: 07/02/19 A Team called secondary to patient complaining of severe chest pain, at that time the patient was noted to be extremely hypertensive with systolic blood pressures in the 200s. The patient denied any shortness of breath, on my arrival his chest pain had subsided without any intervention. History was limited from the patient due to ongoing echolalia and word salad. Constitutional: No acute distress, conversant, pleasant, anxious Eyes: Anicteric sclerae, moist conjunctiva, no lid-lag, PERRLA ENMT: NC/AT,Oropharynx clear, no erythema, exudates Neck:Supple, FROM, no masses, or JVD, No carotid bruits; No thyromegaly Lungs: Clear to auscultation, Clear to percussion, Normal respiratory effort, no accessory muscle use Cardiovascular: Heart regular in rate and rhythm, No murmurs, gallops, or rubs no peripheral edema Abdominal: Soft Nontender, nom distended, no guarding, no rebound or rigidity, Normoactive bowel sounds No hepatomegaly, No splenomegaly, No palpable mass No abdominal wall hernia noted Skin: Normal temperature, tone, texture, turgor, No induration No subcutaneous nodules, No rash, lesions, No ulcers Extremities:No digital cyanosis No clubbing, Pedal pulses intact and symmetrical Radial pulses intact and symmetrical Normal gait and station, No calf tenderness Psychiatric: Awake and alert, agitated anxious Neuro: Muscles Strength 5/5 in all 4 extremities, Sensation to light touch grossly present throughout, Cranial nerves II-XII grossly intact. No focal sensory deficits Assessment Chest pain * Troponin negative EKG showing sinus mechanism with no acute ischemia * The patient given aspirin continued on his beta blockers and other blood pres sure medications Hypertensive urgency * Likely secondary to panic attack * Patient given 0.2 mg of clonidine and continued on his home meds * Blood pressure normalized post panic attack Panic attack * Resume patient's Ativan Hypomagnesemia * Increase magnesium oxide to 400 mg PO TID
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
[2019-07-03] MEDS: INSULIN ASPART (NovoLOG) 100 UNIT/ML VIAL SQ SCH ×4 (07:50→20:51)
[2019-07-03 07:51] LABS: Glucose,Whole Blood 159 mg/dL (75-99)
[2019-07-03] MEDS: metFORMIN 500 MG TAB PO SCH ×2 (07:56→20:50)
[2019-07-03] MEDS: LORazepam 1 MG TAB PO SCH (07:56)
[2019-07-03] MEDS: MAGNESIUM OXIDE 400 MG TAB PO SCH ×3 (07:57→20:48)
[2019-07-03] MEDS: ATORVASTATIN 40 MG TAB PO SCH (07:57)
[2019-07-03] MEDS: OLANZapine ODT 10 MG TAB PO SCH ×3 (07:57→20:50)
[2019-07-03] MEDS: APIXABAN 5 MG TAB PO SCH ×2 (07:57→20:50)
[2019-07-03] MEDS: VALPROIC ACID ORAL SOLN 250 MG/5 ML CUP PO SCH ×2 (07:57→20:50)
[2019-07-03] MEDS: METOPROLOL TARTRATE 12.5 MG TAB PO SCH ×2 (07:58→20:48)
[2019-07-03 12:49] LABS: Glucose,Whole Blood 135 mg/dL (75-99)
[2019-07-03] MEDS: LORazepam 1 MG TAB PO PRN (14:30)
[2019-07-03 18:22] LABS: Glucose,Whole Blood 180 mg/dL (75-99)
[2019-07-03 20:38] LABS: Glucose,Whole Blood 213 mg/dL (75-99)
[2019-07-04] MEDS: LORazepam 1 MG TAB PO PRN ×2 (05:41→16:49)
[2019-07-04] MEDS: metFORMIN 500 MG TAB PO SCH ×2 (08:35→21:48)
[2019-07-04] MEDS: ATORVASTATIN 40 MG TAB PO SCH (08:36)
[2019-07-04] MEDS: LORazepam 1 MG TAB PO SCH (08:36)
[2019-07-04] MEDS: APIXABAN 5 MG TAB PO SCH ×2 (08:36→21:48)
[2019-07-04] MEDS: MAGNESIUM OXIDE 400 MG TAB PO SCH ×3 (08:36→21:49)
[2019-07-04] MEDS: OLANZapine ODT 10 MG TAB PO SCH ×3 (08:37→21:47)
[2019-07-04] MEDS: METOPROLOL TARTRATE 12.5 MG TAB PO SCH ×2 (08:37→21:48)
[2019-07-04] MEDS: INSULIN ASPART (NovoLOG) 100 UNIT/ML VIAL SQ SCH ×4 (08:37→21:44)
[2019-07-04 08:38] LABS: Glucose,Whole Blood 150 mg/dL (75-99)
[2019-07-04] MEDS: VALPROIC ACID ORAL SOLN 250 MG/5 ML CUP PO SCH ×2 (08:39→21:48)
--- NOTE | 2019-07-04 12:02 | P.PN ---
Progress Note - Text Interval history: The patient is found in the hallway he follows me to an interview room. He remains on one-to-one supervision for his safety. The patient begins talking as soon as he is seated. He is stimulus bound and we will start discussing various objects that he sees in front of him. He continues to demonstrate a disorganized thought process. No reports of any significant behavioral disturbance. He has been compliant with medication. Mental status exam: The patient is dressed in hospital gowns hygiene and grooming are impaired. He ambulates slowly at times they're using a wheelchair for him. Eye contact is intermittent. He frequent Hand on the Table Next to Him. As Noted Thought Process Is Not Organized. He Demonstrates Evidence of Perseveration throughout the Session. He Reports No Thoughts of Wanting to Harm Himself or Harm Others. He Is Reporting No Auditory or Visual Hallucinations. It's Unclear If He's Experiencing Specific Delusions at This Time. He is oriented to person, place as a psychiatric davalos but incorrectly identifies the city were in. He is unaware of the date. He demonstrates difficulty with word finding. Insight and judgment are impaired. Plan: The patient will remain on his current psychotropic medications. It appears that his behavior is calm her but he still remains confused. We will draw a Depakote level tomorrow morning prior to his a.m. dose. Vital signs reviewed. We will continue one-to-one supervision.
[2019-07-04 12:51] LABS: Glucose,Whole Blood 143 mg/dL (75-99)
[2019-07-04] MEDS: MAGNESIUM HYDROXIDE 2,400 MG/10 ML CUP PO PRN (12:54)
[2019-07-04 17:29] LABS: Glucose,Whole Blood 216 mg/dL (75-99)
[2019-07-04 20:12] LABS: Glucose,Whole Blood 207 mg/dL (75-99)
[2019-07-05 07:51] LABS: Glucose,Whole Blood 140 mg/dL (75-99)
[2019-07-05] MEDS: metFORMIN 500 MG TAB PO SCH ×2 (08:10→20:27)
[2019-07-05] MEDS: INSULIN ASPART (NovoLOG) 100 UNIT/ML VIAL SQ SCH ×4 (08:11→20:24)
[2019-07-05] MEDS: LORazepam 1 MG TAB PO SCH (08:37)
[2019-07-05] MEDS: ATORVASTATIN 40 MG TAB PO SCH (08:37)
[2019-07-05] MEDS: OLANZapine ODT 10 MG TAB PO SCH ×2 (08:37→20:27)
[2019-07-05] MEDS: APIXABAN 5 MG TAB PO SCH ×2 (08:37→20:27)
[2019-07-05] MEDS ORDERED: WATER FOR INJECTION, STERILE 10 ML IV ONE (09:58)
--- NOTE | 2019-07-05 10:10 | P.PN ---
Progress Note - Text Progress Note Date: 07/05/19 Interval History: Patient was seen today by automobile service writer in his room. Patient today continues to have a one-to-one sitter for safety and orientation. Patient was found sitting on the ground in the room by his wheelchair and appeared to be following minimal commands and perseverating on certain words. Patient however was not agitated however appeared To be confused and bizarre. Patient was not able to engage with automobile service writer during conversation and was not able to endorse any suicidal or homicidal ideations intent or plan. Patient also did not endorse any auditory or visual hallucinations. Patient has been compliant with his medications. Mental Status Exam: General Appearance: Patient appears to be stated age is alert, blank stare and has fair hygiene. Patient is sitting on the ground and appears to be confused. Behavior: Patient is calmly seated following minimal commands. Speech: Prominent perseveration. Mood/Affect: Mood is unable to be assessed. Constricted affect. Suicidality/Homicidality: Unable to assess Perceptions: Patient did not endorse any auditory visual hallucinations. Though content/process: Perseveration, confusion. Bizarre content. Memory and concentration: AOX1. Patient follows minimal commands and appears to be confused. Judgment and insight: Poor Assessment Unspecified psychosis versus bipolar kelli with psychotic features. Plan: -Patient continues to meet criteria for inpatient psychiatric admission for symptom stabilization and safety. Patient has signed adult voluntary form and medication consent and was placed in patient's chart. -Medications: Decreased Zyprexa to 10 mg twice a day for mood stabilization/psychosis as patient is likely oversedated at this time. Discontinued Ativan as may be leading to more confusion. Continue Depakene 500 mg twice a day for mood stabilization. Currently awaiting Depakote level this a.m. -When necessary Zyprexa IM for agitation/aggression. -NRT -not needed at this time as patient does not smoke -SW on board for discharge planning.
[2019-07-05] MEDS: METOPROLOL TARTRATE 12.5 MG TAB PO SCH ×2 (10:43→20:27)
[2019-07-05] MEDS: MAGNESIUM OXIDE 400 MG TAB PO SCH ×3 (10:43→20:28)
[2019-07-05] MEDS: VALPROIC ACID ORAL SOLN 250 MG/5 ML CUP PO SCH ×2 (10:43→20:27)
[2019-07-05 12:46] LABS: Glucose,Whole Blood 175 mg/dL (75-99)
[2019-07-05 17:29] LABS: Glucose,Whole Blood 260 mg/dL (75-99)
[2019-07-05] MEDS: LORazepam 1 MG TAB PO PRN (17:57)
[2019-07-05 20:14] LABS: Glucose,Whole Blood 149 mg/dL (75-99)
[2019-07-06] MEDS: ACETAMINOPHEN TAB 325 MG TAB PO PRN (00:34)
[2019-07-06] MEDS: LORazepam 1 MG TAB PO PRN (00:34)
[2019-07-06 08:01] LABS: Glucose,Whole Blood 114 mg/dL (75-99)
[2019-07-06] MEDS: INSULIN ASPART (NovoLOG) 100 UNIT/ML VIAL SQ SCH ×4 (08:15→20:07)
[2019-07-06] MEDS: APIXABAN 5 MG TAB PO SCH ×2 (09:18→20:06)
[2019-07-06] MEDS: METOPROLOL TARTRATE 12.5 MG TAB PO SCH ×2 (09:18→20:06)
[2019-07-06] MEDS: MAGNESIUM OXIDE 400 MG TAB PO SCH ×3 (09:18→20:05)
[2019-07-06] MEDS: ATORVASTATIN 40 MG TAB PO SCH (09:18)
[2019-07-06] MEDS: metFORMIN 500 MG TAB PO SCH ×2 (09:19→20:05)
[2019-07-06] MEDS: OLANZapine ODT 10 MG TAB PO SCH ×2 (09:21→20:05)
[2019-07-06] MEDS: VALPROIC ACID ORAL SOLN 250 MG/5 ML CUP PO SCH ×2 (09:21→20:05)
--- NOTE | 2019-07-06 10:00 | P.PN ---
Progress Note - Text Progress Note Date: 07/06/19 Interval History: Patient was seen today by telegraphic typewriter mechanic in his room. Patient continues to have a one -to-one sitter for safety and orientation. Patient was found sitting at the side of the bed and appeared to be speaking with his sitter. Patient continues to have poor eye contact during conversation. Patient continues to appear confused and bizarre during evaluation. Patient states that he is doing "okay today" however goes on to state that he is going on the date tonight and needs to get his suit ready. Patient also continues to perseverate on writers boots and states that "voices are telling me to get your boots". Patient today was also moving his wheelchair with his feet and appeared to be frustrated and began crying and was difficult to redirect. Patient was not able to engage with telegraphic typewriter mechanic fully during conversation and was not able to endorse any suicidal or homicidal ideations intent or plan. Patient also did not visual hallucinations however did state that he hears voices at times. Patient has been compliant with his medications. Patient claims that he slept through the night. Mental Status Exam: General Appearance: Patient appears to be stated age is alert, blank stare and has fair hygiene. Patient is sitting on the ground and appears to be confused. Behavior: Patient is calmly seated following minimal commands. Tearful at times. Speech: Prominent perseveration. Mood/Affect: Mood is unable to be assessed. Labile affect. Suicidality/Homicidality: Unable to assess Perceptions: Patient did not endorse any visual hallucinations. He endorsed auditory hallucinations. Though content/process: Perseveration, confusion. Bizarre content. Memory and concentration: AOX1. Patient follows minimal commands and appears to be confused. Judgment and insight: Poor Assessment Unspecified psychosis versus bipolar kelli with psychotic features. Plan: -Patient continues to meet criteria for inpatient psychiatric admission for symptom stabilization and safety. Patient has signed adult voluntary form and medication consent and was placed in patient's chart. -Medications: Decreased Zyprexa to 10 mg twice a day for mood stabilization/psychosis as patient is likely oversedated at this time. Discontinued Ativan PRN as may be leading to more confusion. Continue Depakene 500 mg twice a day for mood stabilization. -When necessary Zyprexa IM for agitation/aggression. -Will order JOHN, HIV and ESR -NRT -not needed at this time as patient does not smoke -SW on board for discharge planning. We likely speak with neurology to reevaluate patient as patient continues to have significant neuropsychiatric symptoms.
[2019-07-06 12:43] LABS: Glucose,Whole Blood 169 mg/dL (75-99)
[2019-07-06 17:38] LABS: Glucose,Whole Blood 135 mg/dL (75-99)
[2019-07-06 20:01] LABS: Glucose,Whole Blood 192 mg/dL (75-99)
[2019-07-07 07:51] LABS: Glucose,Whole Blood 113 mg/dL (75-99)
[2019-07-07] MEDS: INSULIN ASPART (NovoLOG) 100 UNIT/ML VIAL SQ SCH ×5 (07:58→21:26)
[2019-07-07] MEDS: MAGNESIUM OXIDE 400 MG TAB PO SCH ×3 (09:17→21:25)
[2019-07-07] MEDS: metFORMIN 500 MG TAB PO SCH ×2 (09:17→21:25)
[2019-07-07] MEDS: ATORVASTATIN 40 MG TAB PO SCH (09:17)
[2019-07-07] MEDS: APIXABAN 5 MG TAB PO SCH ×2 (09:17→21:25)
[2019-07-07] MEDS: METOPROLOL TARTRATE 12.5 MG TAB PO SCH ×2 (09:17→21:25)
[2019-07-07] MEDS: VALPROIC ACID ORAL SOLN 250 MG/5 ML CUP PO SCH ×2 (09:17→21:25)
[2019-07-07] MEDS: OLANZapine ODT 10 MG TAB PO SCH ×2 (09:17→21:26)
--- NOTE | 2019-07-07 11:44 | P.PN ---
Progress Note - Text Progress Note Date: 07/07/19 Interval History: Patient was seen today by rfp writer in his room as he was brushing his teeth and was also agreeable to speak in the hallway as he was walking. Patient continues to have a one-to-one sitter for safety and orientation. Patient appears to be more awake today however continues to be confused. Patient thought today's date was 07/06/2019 and knew that Karsten Will was the president. However patient did not know his location but when given options he correctly identified that he is in hospital. Patient continues to have poor eye contact during conversation. Patient also continues to perseverate on certain things in his environment. Patient claimed that he was "awake all night" and when asked why he pointed to a picture on the wall as he was walking by and stated that it was the reason why he was awake all night. He also stated that "I felt I was turning into a monster". Patient continues to appear confused and bizarre during evaluation. Patient was more communicative today however needed frequent redirection. Patient was not able to engage with rfp writer fully during conversation and was not able to endorse any suicidal or homicidal ideations intent or plan. Patient also did not visual hallucinations however did state that he hears voices at times. Patient has been compliant with his medications. Mental Status Exam: General Appearance: Patient appears to be stated age is alert, blank stare and has fair hygiene. Patient is walking in the hallway and appears to be confused. Behavior: Patient is calmly seated following minimal commands. Less tearful today. Speech: Prominent perseveration. Mood/Affect: Mood is "fine" , affect is constricted. Suicidality/Homicidality: Unable to assess Perceptions: Patient did not endorse any visual hallucinations. He endorsed auditory hallucinations. Though content/process: Perseveration, confusion. Bizarre content. Memory and concentration: AOX2. Patient follows minimal commands and appears to be confused. Judgment and insight: Poor Assessment Unspecified psychosis, attempting to rule out dementia or encephalitis versus other degenerative neuropsychiatric conditions. Plan: -Patient continues to meet criteria for inpatient psychiatric admission for symptom stabilization and safety. Patient has signed adult voluntary form and medication consent and was placed in patient's chart. -Medications: Decreased Zyprexa to 10 mg nightly + 5 mg daily for mood stabilization/psychosis as patient is likely oversedated at this time. Increased Depakene 500 mg a day + 750mg nightly for mood stabilization. -When necessary Zyprexa IM for agitation/aggression. -HIV currently pending, Depakote level 54.2, and ESR - 18 -NRT -not needed at this time as patient does not smoke -Neurology to see patient today and consider possible lumbar puncture and ruling out any autoimmune/infectious encephalitis. -CAR SANDER consult for neuropsych testing. -SW on board for discharge planning. Plastic Tile Setter will attempt to speak with patient's sister today to clarify patient's history and collateral.
[2019-07-07 12:45] LABS: Glucose,Whole Blood 110 mg/dL (75-99)
[2019-07-07 13:02] LABS: Appearance,Urine Clear (Clear); Bacteria,Urine Occasional /hpf; Bilirubin,Urine Negative (Negative); Blood,Urine Large (Negative); Color,Urine Red; Glucose,Urine (UA) 4+ (Negative); Ketones,Urine 1+ (Negative); Leukocyte Esterase,Urine Small (Negative); Mucus,Urine Occasional /hpf; Nitrite,Urine Negative (Negative); Protein,Urine 1+ (Negative); RBC,Urine >182 /hpf (0-5); Specific Gravity,Urine 1.026 (1.001-1.035); Urobilinogen,Urine <2.0 mg/dL (<2.0); WBC,Urine 4 /hpf (0-5)
--- NOTE | 2019-07-07 13:15 | P.PN ---
Subjective Patient was seen in consultation to evaluate for hematuria. Patient has a history of painless passing of a blood clot in the urine. Patient does not have any dysuria or frequency. Patient was recently started on Eliquis for pulmonary embolism. He currently does not have any visual hematuria. He does not have any external genitalia pain or swelling. He did have slight injury with the zipper to his foreskin but there was no any visible trauma or laceration. The patient states that he never smoked. He reports that his father had prostate cancer. She does not have regular follow-up primary care physician. Objective - Vital Signs Vital signs: Vital Signs Temp 98.8 F 07/07/19 09:15 Pulse 112 H 07/07/19 09:15 Resp 20 07/07/19 09:15 BP 133/85 07/07/19 09:15 Pulse Ox 96 07/07/19 09:15 Intake & Output 07/06/19 07/07/19 07/07/19 18:59 06:59 18:59 Weight 92.3 kg - Labs CBC & Chem 7: 07/02/19 21:50 07/02/19 21:50 Labs: Abnormal Lab Results - Last 24 Hours (Table) 07/06/19 07/06/19 07/06/19 Range/Units 15:34 17:32 19:59 ESR 18 H (0-15) mm/hr POC Glucose (mg/dL) 135 H 192 H (75-99) mg/dL Urine Protein (Negative) Urine Glucose (UA) (Negative) Urine Ketones (Negative) Urine Blood (Negative) Ur Leukocyte Esterase (Negative) Urine RBC (0-5) /hpf Urine Bacteria (None) /hpf Urine Mucus (None) /hpf 07/07/19 07/07/19 07/07/19 Range/Units 07:50 12:15 12:40 ESR (0-15) mm/hr POC Glucose (mg/dL) 113 H 110 H (75-99) mg/dL Urine Protein 1+ H (Negative) Urine Glucose (UA) 4+ H (Negative) Urine Ketones 1+ H (Negative) Urine Blood Large H (Negative) Ur Leukocyte Esterase Small H (Negative) Urine RBC >182 H (0-5) /hpf Urine Bacteria Occasional H (None) /hpf Urine Mucus Occasional H (None) /hpf Microbiology - Last 24 Hours (Table) 07/05/19 05:50 Urine Culture - Final Urine,Voided Assessment and Plan Assessment: UA or ordered and consistent with hematuria In view of onto Coblation therapy and family history of prostate cancer and poor follow-up on outpatient basis and would recommend patient to be further evalu ated by urology Check GC and chlamydia at this time.
[2019-07-07 17:55] LABS: Glucose,Whole Blood 116 mg/dL (75-99)
[2019-07-07 20:07] LABS: Glucose,Whole Blood 213 mg/dL (75-99)
[2019-07-08 08:03] LABS: Glucose,Whole Blood 106 mg/dL (75-99)
[2019-07-08] MEDS: INSULIN ASPART (NovoLOG) 100 UNIT/ML VIAL SQ SCH ×4 (08:44→20:18)
[2019-07-08] MEDS: metFORMIN 500 MG TAB PO SCH ×2 (08:45→20:15)
[2019-07-08] MEDS: ATORVASTATIN 40 MG TAB PO SCH (08:45)
[2019-07-08] MEDS: OLANZapine ODT 5 MG TAB PO SCH (08:45)
[2019-07-08] MEDS: MAGNESIUM OXIDE 400 MG TAB PO SCH ×2 (08:45→16:48)
[2019-07-08] MEDS: METOPROLOL TARTRATE 12.5 MG TAB PO SCH ×2 (08:45→20:18)
[2019-07-08] MEDS: APIXABAN 5 MG TAB PO SCH ×2 (08:45→20:15)
[2019-07-08] MEDS: VALPROIC ACID ORAL SOLN 250 MG/5 ML CUP PO SCH ×2 (08:46→20:15)
--- NOTE | 2019-07-08 10:33 | P.PN ---
Progress Note - Text Progress Note Date: 07/08/19 Interval History: Patient was seen today wandering the hallway and was agreeable to speak to rian storey in the office. Patient continues to have a one-to-one sitter for safety and orientation. Patient appeared to be more awake today and was walking alone without any problems. Patient was also more receptive and communicative with jingle writer today. Patient was directable during conversation and answered questions to the best of his capability. Patient correctly stated the date and his name along with his current location. However when asked about the past 3 presidents patient stated that "I know Karsten Will is president now but I think Aldrich was before him and then I don't know". Patient could not spell "world" backwards and had a difficult time with concentration. Patient had a mocha performed yesterday by CUFF MATCHER. Patient eye contact has been improving gradually however patient has a more constricted affect. He states that he does not remember any of the episodes that he's been having and states that he is scared of having another one. Patient claims that he would like to go back to his house and continue his work and feels that he is able to live alone. Patient is somewhat confused during the interview however is an improvement from yesterday. He states that his mood is "okay" and denies any depression. Patient does not endorse any suicidal or homicidal ideations intent or plan. Patient also did not endorse any visual hallucinations or auditory hallucinations today. Patient has been compliant with his medications. Mental Status Exam: General Appearance: Patient appears to be stated age is alert, constricted affect and has fair hygiene. Patient is walking in the hallway with his one-to-one sitter. Behavior: Patient is calmly seated following most commands. Less tearful today. No tremor was noted. No rigidity in his upper extremities. Patient has knocked knees in his gait. Speech: More fluent, normal rate. Mood/Affect: Mood is "ok" , affect is constricted. Suicidality/Homicidality: Denies Perceptions: Patient did not endorse any visual hallucinations. He denies any auditory hallucinations. Though content/process: No perseveration today, less confused. More goal oriented. Memory and concentration: AOX3, patient cannot state the past 3 presidents. Patient cannot spell world backwards. Poor attention. Judgment and insight: Poor, mildly improving. Assessment Unspecified psychosis, attempting to rule out dementia or encephalitis versus other degenerative neuropsychiatric conditions. Plan: -Patient continues to meet criteria for inpatient psychiatric admission for symptom stabilization and safety. Patient has signed adult voluntary form and medication consent and was placed in patient's chart. -Medications: Continue with Zyprexa to 10 mg nightly + 5 mg daily for mood stabilization/psychosis. Continue with Depakene 500 mg a day + 750mg nightly for mood stabilization. -When necessary Zyprexa IM for agitation/aggression. -HIV currently pending, Depakote level 54.2, and ESR 18. -Medicine saw patient for hematuria and recommended urology consultation. Awaiting gonorrhea and chlamydia labs. -CUFF MATCHER performed neuropsychic testing on 07/07/19 and found, MOCA score 11/30 - with poor visual spatial/executive functioning, attention, language, obstruction and delayed recall. Will likely need to have a repeat neuropsych testing done once patient is more psychiatrically stable to check for any underlying cognitive issues. -NRT -not needed at this time as patient does not smoke -Neurology to see patient today and consider possible lumbar puncture and ruling out any autoimmune/infectious encephalitis vs. LBD? -SW on board for discharge planning. Venereal Disease Control Head spoke with sister Sofy yesterday who stated that patient did have an episode similar to this several years back when he took many "energy pills" [id number] and ended up in the hospital. She states that patient has been mainly independent working a job and maintaining his home. She states that she does not have much contact with patient and does not know much of what he does during the day and also states that patient was living independently in [facility] for several years and only recently moved to [place] about 7 years ago.
[2019-07-08 11:52] LABS: HCT 41.5 % (39.0-53.0); HGB 12.8 gm/dL (13.0-17.5); Hypochromasia Slight; MCHC 30.7 g/dL (31.0-37.0); MCV 91.1 fL (80.0-100.0); Mean Platelet Volume 7.6; Platelet Count 192 k/uL (150-450); RBC 4.56 m/uL (4.30-5.90); RDW 14.4 % (11.5-15.5)
[2019-07-08 11:56] LABS: ALT 210 U/L (4-49); AST 187 U/L (17-59); African American GFR (CKD) >90 (>60 ml/min/1.73 sqM); Albumin 3.7 g/dL (3.5-5.0); Alkaline Phosphatase 171 U/L (38-126); Anion Gap 8 mmol/L; Blood Urea Nitrogen 16 mg/dL (9-20); Calcium 9.2 mg/dL (8.4-10.2); Carbon Dioxide 30 mmol/L (22-30); Chloride 106 mmol/L (98-107); Glucose 134 mg/dL (74-99); Non-African American GFR(CKD) >90 (>60 ml/min/1.73 sqM); Potassium 4.7 mmol/L (3.5-5.1); Sodium 144 mmol/L (137-145); Total Bilirubin 0.6 mg/dL (0.2-1.3); Total Protein 7.3 g/dL (6.3-8.2)
[2019-07-08 12:40] LABS: Glucose,Whole Blood 109 mg/dL (75-99)
--- NOTE | 2019-07-08 17:23 | P.PN ---
Progress Note - Text Progress Note Date: 07/08/19 abnormal liver enzymes stop statin check liver US check CMP in morning on eliquis 10 mg BID for >1 week , now switch to 5 mg BID for 6 months monitor for any evidence of bleeding discontinue Mg Oxide, recheck Mg in morning vital signs stable , check vitals q shift
[2019-07-08 17:44] LABS: Glucose,Whole Blood 161 mg/dL (75-99)
--- NOTE | 2019-07-08 19:35 | P.PN ---
Progress Note - Text Progress Note Date: 07/08/19 Subjective: Called by primary psychiatrist, Dr. Lawrence, for concern about unusual acute psychosis episodes. Patient was seen by Dr. Nunez on 06/28/2019. Patient today has no complaints. Denies any headache, nausea, vomiting, weakness, numbness or tingling. AT the time of evaluation, patient very pleasant, denies auditory/visual hallucinations. PHYSICAL EXAMINATION: VITAL SIGNS: T 97.6 HG 72 RR 23 BP 142/79 O2 sat 92% on RA GEN.: NAD, pleasant and cooperative HEENT: NCAT, sclera without icterus NECK: Supple SKIN AND EXTREMITIES: Warm to touch NEURO: MENTAL STATUS: Patient alert and oriented to self, place, time. Able to name the current president. Speech fluent, able to name and repeat, following all commands readily. CRANIAL NERVES II THROUGH XII: II: Pupils are equal and reactive to light symmetrically. Visual morgan are intact to confrontation. III, IV, : No ptosis. Extraocular movements full. No nystagmus. V: Facial sensation intact from V1-3. VII. No clear facial asymmetry. VIII: Hearing intact to finger rub bilaterally. IX, X: Symmetric palate elevation. XI: Shoulder shrug intact. XII: Tongue midline without fasciculation or atrophy. MOTOR: Normal bulk/tone. No pronator drift or tremor. Strength is 5/5 throughout all 4 extremities. SENSORY: Intact to light touch in all 4 extremities. Romberg is negative. REFLEXES: 2+ throughout. Toes are downgoing. COORDINATION: Finger to nose intact. No dysmetria. GAIT: Narrow-based and stable. X-shaped legs when walking but stable. Able to toe/heel/tandem walk Laboratory: 07/02/2019: WBC 5.3 Hgb 12.7 Platelet 211 Na 138 K 4.4 Cl 102 CO2 25 BUN 21 Cr 0.86 glucose 268 troponin <0.012 Diagnostics: MRI brain w/o contrast 06/25/2019: Minimal cerebral atrophy. Otherwise negative MR scan of brain. Assessment and Plan: 58-year-old man with PMhx of DM, DVT, HLD, HTN, who was admitted initially to the psych unit for abnormal behavior and psychosis, as patient was yelling and the people in [employer], consulting Neurology again for concern and suspicion for an organic etiology of acute psychosis. Patient today with very benign exam, but per primary psychiatrist, patient with fluctuating mental status and psychiatric episodes. 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 It appears that patient has been responding to antipsychotics. MRI brain with no significantly abnormal findings. No additional neurological work-up recommended at this time. Neurology lisa sign off.
[2019-07-08 19:54] LABS: Glucose,Whole Blood 165 mg/dL (75-99)
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
[2019-07-08] MEDS: OLANZapine ODT 10 MG TAB PO SCH (20:15)
[2019-07-09 07:51] LABS: C. trachomatis,PCR Negative (Neg,Equiv); Chlamydia trachomatis Source Urine; N. gonorrhoeae,PCR Negative (Neg,Equiv); Neisseria Source Urine
[2019-07-09 07:53] LABS: Glucose,Whole Blood 159 mg/dL (75-99)
[2019-07-09] MEDS: INSULIN ASPART (NovoLOG) 100 UNIT/ML VIAL SQ SCH ×4 (08:12→20:19)
[2019-07-09] MEDS: metFORMIN 500 MG TAB PO SCH ×2 (08:14→20:43)
[2019-07-09] MEDS: OLANZapine ODT 5 MG TAB PO SCH (08:33)
[2019-07-09] MEDS: METOPROLOL TARTRATE 12.5 MG TAB PO SCH ×2 (08:33→22:02)
[2019-07-09] MEDS: VALPROIC ACID ORAL SOLN 250 MG/5 ML CUP PO SCH (08:34)
[2019-07-09] MEDS: APIXABAN 5 MG TAB PO SCH ×2 (08:35→20:43)
[2019-07-09 08:47] LABS: ALT 220 U/L (4-49); AST 207 U/L (17-59); African American GFR (CKD) >90 (>60 ml/min/1.73 sqM); Albumin 3.6 g/dL (3.5-5.0); Alkaline Phosphatase 186 U/L (38-126); Anion Gap 7 mmol/L; Blood Urea Nitrogen 16 mg/dL (9-20); Calcium 9.1 mg/dL (8.4-10.2); Carbon Dioxide 28 mmol/L (22-30); Chloride 104 mmol/L (98-107); Glucose 154 mg/dL (74-99); Magnesium 1.5 mg/dL (1.6-2.3); Non-African American GFR(CKD) >90 (>60 ml/min/1.73 sqM); Potassium 4.5 mmol/L (3.5-5.1); Sodium 139 mmol/L (137-145); Total Bilirubin 0.7 mg/dL (0.2-1.3)
--- NOTE | 2019-07-09 09:31 | US ---
EXAMINATION TYPE: US liver DATE OF EXAM: 07/09/2019 COMPARISON: NONE CLINICAL HISTORY: abnormal liver enzymes. Abnormal liver enzymes. EXAM MEASUREMENTS: Liver Length: 15.5 cm Gallbladder Wall: .2 cm CBD: .3 cm Right Kidney: 10.4 x 4.4 x 4.0 cm Pancreas: Tail obscured by overlying bowel gas Liver: No focal masses, suggestion of increased echotexture Gallbladder: No stones seen Evidence for sonographic Grimm's sign: No CBD: wnl Right Kidney: wnl There is no ascites. IMPRESSION: Correlate for hepatic steatosis.
--- NOTE | 2019-07-09 12:08 | P.PN ---
Progress Note - Text Progress Note Date: 07/09/19 Interval History: Patient was seen today taking part in group and was agreeable to speak to auto service writer in the office. Patient is currently off one-to-one sitter for today and has been noted by staff to be pacing the hallways and attempting to cooperate in group. Patient was noted to be working with a puzzle and interacting with staff in group. Patient appeared to be more communicative today with auto service writer however was somewhat labile and his affect and was tearful speaking about his mother and his decline in his functioning. Patient was also interested to know the results of the blood work and also the ultrasound which took place early today and it was explained to him about the steatosis in his liver and also the need for changing his mood stabilizer and patient was agreeable to start lithium instead of Depakote at this time. Patient appeared to be more awake today and was walking alone without any problems. Patient correctly stated the current location his name however believe that it was "06/05/2020". Patient appeared to be mildly confused and had poor attention span and was not able to list the days of the week backwards or do serial sevens. Patient eye contact has been improving gradually however patient has less of a constricted affect. He states that his mood is "okay" and denies any depression at this time however was tearful. Patient does not endorse any suicidal or homicidal ideations intent or plan. Patient also did not endorse any visual hallucinations or auditory hallucinations today. Patient has been compliant with his medications. Patient was requesting to have shoes on the unit. He states that he did not sleep well last night due to noises in his room. Mental Status Exam: General Appearance: Patient appears to be stated age is alert, constricted affect and has fair hygiene. Patient is walking in the hallway and taking part in group. Behavior: Patient is calmly seated following most commands. tearful today and somewhat labile. No tremor was noted. Speech: More fluent, normal rate. Mood/Affect: Mood is "fine" , affect is constricted. Suicidality/Homicidality: Denies Perceptions: Patient did not endorse any visual hallucinations. He denies any auditory hallucinations. Though content/process: No perseveration today, less confused. More goal oriented. Memory and concentration: AOX2, he believes it is "06/05/2020". Patient has poor attention span and cannot do serial sevens. Judgment and insight: Poor, mildly improving. Assessment Unspecified psychosis, attempting to rule out dementia or encephalitis versus other degenerative neuropsychiatric conditions. Plan: -Patient continues to meet criteria for inpatient psychiatric admission for symptom stabilization and safety. Patient has signed adult voluntary form and medication consent and was placed in patient's chart. -Medications: Continue with Zyprexa to 10 mg nightly + 5 mg daily for mood stabilization/psychosis. Depakene dose was held last night due to elevated transaminases. Will discontinue Depakote at this time and switched to lithium, 150 mg every morning + 600 mg daily at bedtime for mood stabilization. -Ultrasound performed on 07/09/19 showed hepatic steatosis. -When necessary Zyprexa IM for agitation/aggression. -HIV currently pending, Depakote level 54.2, and ESR 18. LFTs elevated. -Medicine saw patient for hematuria. Awaiting gonorrhea and chlamydia labs. Urology would like CT urogram along with outpatient follow-up. -GAG WRITER performed neuropsychic testing on 07/07/19 and found, MOCA score 11/30 - with poor visual spatial/executive functioning, attention, language, obstruction and delayed recall. Will likely need to have a repeat neuropsych testing done once patient is more psychiatrically stable to check for any underlying cognitive issues. -NRT -not needed at this time as patient does not smoke -Appreciate neurology recommendations, no need for lumbar puncture or further neurological testing at this time and continue to monitor cognitive status along with behavioral symptoms. -SW on board for discharge planning.
[2019-07-09 12:45] LABS: Glucose,Whole Blood 149 mg/dL (75-99)
[2019-07-09 17:47] LABS: Glucose,Whole Blood 168 mg/dL (75-99)
[2019-07-09 20:04] LABS: Glucose,Whole Blood 207 mg/dL (75-99)
[2019-07-09] MEDS: MAGNESIUM OXIDE 400 MG TAB PO SCH (20:20)
[2019-07-09] MEDS: OLANZapine ODT 10 MG TAB PO SCH (20:43)
[2019-07-09] MEDS: LITHIUM CARBONATE 300 MG CAP PO SCH (20:43)
[2019-07-10 07:49] LABS: Glucose,Whole Blood 125 mg/dL (75-99)
[2019-07-10] MEDS: INSULIN ASPART (NovoLOG) 100 UNIT/ML VIAL SQ SCH ×4 (08:03→20:35)
[2019-07-10] MEDS: metFORMIN 500 MG TAB PO SCH ×2 (08:04→20:46)
[2019-07-10] MEDS: LITHIUM CARBONATE 150 MG CAP PO SCH (08:04)
[2019-07-10] MEDS: MAGNESIUM OXIDE 400 MG TAB PO SCH (08:04)
[2019-07-10] MEDS: APIXABAN 5 MG TAB PO SCH ×2 (08:04→20:47)
[2019-07-10] MEDS: OLANZapine ODT 5 MG TAB PO SCH (08:05)
[2019-07-10] MEDS: METOPROLOL TARTRATE 12.5 MG TAB PO SCH ×2 (08:05→20:46)
[2019-07-10 12:48] LABS: Glucose,Whole Blood 130 mg/dL (75-99)
--- NOTE | 2019-07-10 17:30 | P.PN ---
Progress Note - Text Progress Note Date: 07/10/19 Subjective: Patient was seen today as a cross coverage for . The patient was evaluated, chart reviewed, case discussed with the treatment team. Patient reported better sleep last night. Appetite was reported as "fair ". Patient has been going to groups and other unit activities. The patient is compliant with his medications and denies any adverse reactions. Patient reports feeling stable emotionally and he denies feeling depressed, hopeless, or suicidal. He denies any mood swings, severe anxiety, and denies any psychotic symptoms including hallucinations, paranoid ideation, and no delusions could be elicited. He denies any manic symptoms including sustained period of time with elevated or irritable mood, impulsive or irrational behavior, inflated self-esteem, or absence need to sleep due to increases goal-directed activities. Patient reports has a plan to discharged to long term [facility] and he will return back to his work. Objective: Vitals has been reviewed. Mental status examination; Appearance: The patient appears stated age, adequately groomed and dressed, no specific features. Gait/posture: Normal gait, Normal arm swinging: No abnormal movements. Attitude and behavior: engaged, cooperative, eye contact. Motor activity: Normal psychomotor activity Speech: Normal rate, tone. Mood: Anxious Affect: Constricted Thought form: goal-directed, linear, coherent. Thought content: Non-delusional, denies suicidal thoughts, denies homicidal thoughts, denies intentions or plans. Perception: Denies any auditory or visual hallucinations Attention: No impairment. Orientation: Patient patient was fully oriented to time place person and situation. Insight: Patient has fair insight about his psychiatric disorder. Judgment: Patient has fair judgment about his psychiatric treatment. Assessment: Bipolar disorder, most recent episode manic with psychotic features Plan: Continue inpatient level of care due to need for further stabilization on medications Precautions: Continue 15 minutes check for safety. Consider medical consultation if any acute medical issues arise. Provide the patient individual, group therapy, substance use disorder counseling to give better insight and learn coping skills. Medications: Continue lithium 150 mg daily and 600 mg at bedtime for mood stabilization. Patient was tapered off Depakote due to elevated liver enzymes and ultrasound showed steatosis. Continue Zyprexa 5 mg in the morning and 10 mg at bedtime for mood stabilization and psychotic symptoms. Continue when necessary medications. Labs: Obtain lithium level, repeat CMP, and thyroid function test as clinically indicated. Discharge patient to OUTPATIENT services upon a stabilization
[2019-07-10 17:41] LABS: Glucose,Whole Blood 189 mg/dL (75-99)
[2019-07-10 20:02] LABS: Glucose,Whole Blood 251 mg/dL (75-99)
[2019-07-10] MEDS: OLANZapine ODT 10 MG TAB PO SCH (20:47)
[2019-07-10] MEDS: LITHIUM CARBONATE 300 MG CAP PO SCH (20:47)
[2019-07-11 07:41] LABS: ALT 162 U/L (4-49); AST 119 U/L (17-59); African American GFR (CKD) >90 (>60 ml/min/1.73 sqM); Albumin 3.1 g/dL (3.5-5.0); Alkaline Phosphatase 134 U/L (38-126); Anion Gap 3 mmol/L; Blood Urea Nitrogen 20 mg/dL (9-20); Calcium 9.1 mg/dL (8.4-10.2); Carbon Dioxide 30 mmol/L (22-30); Chloride 105 mmol/L (98-107); Glucose 170 mg/dL (74-99); Non-African American GFR(CKD) >90 (>60 ml/min/1.73 sqM); Potassium 4.6 mmol/L (3.5-5.1); Sodium 138 mmol/L (137-145); Total Bilirubin 0.4 mg/dL (0.2-1.3); Total Protein 6.3 g/dL (6.3-8.2)
[2019-07-11 07:46] LABS: Glucose,Whole Blood 159 mg/dL (75-99)
[2019-07-11] MEDS: INSULIN ASPART (NovoLOG) 100 UNIT/ML VIAL SQ SCH ×4 (08:23→21:30)
[2019-07-11] MEDS: OLANZapine ODT 5 MG TAB PO SCH (08:25)
[2019-07-11] MEDS: metFORMIN 500 MG TAB PO SCH ×2 (08:25→21:29)
[2019-07-11] MEDS: METOPROLOL TARTRATE 12.5 MG TAB PO SCH ×2 (08:25→21:05)
[2019-07-11] MEDS: MAGNESIUM OXIDE 400 MG TAB PO SCH (08:25)
[2019-07-11] MEDS: LITHIUM CARBONATE 150 MG CAP PO SCH (08:25)
[2019-07-11] MEDS: APIXABAN 5 MG TAB PO SCH ×2 (08:25→21:29)
[2019-07-11 12:36] LABS: Glucose,Whole Blood 115 mg/dL (75-99)
--- NOTE | 2019-07-11 13:54 | P.PN ---
Progress Note - Text Progress Note Date: 07/11/19 Subjective: Patient was seen today as a cross coverage for . The patient was evaluated, chart reviewed, case discussed with the treatment team. Patient reports feeling stable emotionally and he denies depression, anxiety, or mood instability symptoms. He reports feeling "ready" to leave the hospital, and he denies any hallucinations, paranoid ideation, and no delusions could be elicited. Patient denies any manic symptoms including a euphoric mood, lack need to sleep due to increased activities, or irrational uninhibited behavior. He reports continued to have good sleep and fair appetite. Patient has been going to groups and other unit activities. The patient is compliant with his medications and denies any adverse reactions. Objective: Vitals has been reviewed. Mental status examination; Appearance: The patient appears stated age, adequately groomed and dressed, no specific features. Gait/posture: Normal gait, Normal arm swinging: No abnormal movements. Attitude and behavior: engaged, cooperative, eye contact. Motor activity: Normal psychomotor activity Speech: Normal rate, tone. Mood: "Fine" Affect: Restricted Thought form: goal-directed, linear, coherent. Thought content: Non-delusional, denies suicidal thoughts, denies homicidal thoughts, denies intentions or plans. Perception: Denies any auditory or visual hallucinations Attention: No impairment. Orientation: Patient patient was fully oriented to time place person and situation. Insight: Patient has fair insight about his psychiatric disorder. Judgment: Patient has fair judgment about his psychiatric treatment. Assessment: Bipolar disorder, most recent episode manic with psychotic features Plan: Continue inpatient level of care due to need for further stabilization on medications Precautions: Continue 15 minutes check for safety. Consider medical consultation if any acute medical issues arise. Provide the patient individual, group therapy, substance use disorder counseling to give better insight and learn coping skills. Medications: Continue lithium 150 mg daily and 600 mg at bedtime for mood stabilization. Patient was tapered off Depakote due to elevated liver enzymes and ultrasound showed steatosis. Continue Zyprexa 5 mg in the morning and 10 mg at bedtime for mood stabilization and psychotic symptoms. Continue when necessary medications. Labs: Obtain lithium level, repeat CMP, and thyroid function test as clinically indicated. Discharge patient to OUTPATIENT services upon a stabilization
--- NOTE | 2019-07-11 16:55 | P.PN ---
Subjective Progress Note Date: 07/11/19 Principal diagnosis: Medical management Patient was seen and examined. No acute events overnight. Patient reports no complaints. Patient states that he generally feels well. He denies any chest pain, shortness of breath or palpitations. No nausea or vomiting. No fever or chills. No abdominal pain. Patient denies any hematuria. Objective - Vital Signs Vital signs: Vital Signs Temp 98.8 F 07/11/19 06:09 Pulse 97 07/11/19 08:20 Resp 20 07/11/19 08:20 BP 112/79 07/11/19 08:20 Pulse Ox 98 07/07/19 17:24 Intake & Output 07/10/19 07/11/19 07/11/19 18:59 06:59 18:59 Weight 92.5 kg - Exam General: [non toxic], [no distress], [appears at stated age] Derm: [warm], [dry] Head: [atraumatic], [normocephalic], [symmetric] Eyes: [EOMI], [no lid lag], [anicteric sclera] Mouth: [no lip lesion], [mucus membranes moist] Cardiovascular: [S1S2 reg], [no murmur], [positive DP pulse bilateral], Lungs: [CTA bilateral], [no rhonchi, no rales] , [no accessory muscle use] Abdominal: [soft], [ nontender to palpation], [no guarding], [no appreciable organomegaly] Ext: [no gross muscle atrophy], [no edema], [no contractures], [chronic venous stasis changes lower extremity bilateral] Neuro: [No focal deficits] Psych: [Appears alert and oriented] - Labs CBC & Chem 7: 07/08/19 11:32 07/11/19 07:15 Labs: Abnormal Lab Results - Last 24 Hours (Table) 07/10/19 07/10/19 07/11/19 Range/Units 17:40 20:01 07:15 Glucose 170 H (74-99) mg/dL POC Glucose (mg/dL) 189 H 251 H (75-99) mg/dL AST 119 H (17-59) U/L ALT 162 H (4-49) U/L Alkaline Phosphatase 134 H (38-126) U/L Albumin 3.1 L (3.5-5.0) g/dL 07/11/19 07/11/19 Range/Units 07:45 12:35 Glucose (74-99) mg/dL POC Glucose (mg/dL) 159 H 115 H (75-99) mg/dL AST (17-59) U/L ALT (4-49) U/L Alkaline Phosphatase (38-126) U/L Albumin (3.5-5.0) g/dL Assessment and Plan Assessment: Elevated liver enzymes Hematuria Pulmonary embolus with bilateral lower extremity DVT Diabetes mellitus Hypertension Dyslipidemia AST 119, ALT 162, alkaline phosphatase 134. Liver ultrasound shows signs of hepatic steatosis. Lipid panel within normal limits. Plans: Trending down. Was on Depakote which is the likely culprit. Expect LFTs to improve with discontinuation of Depakote. Hemoglobin 12.8. Urology consulted recommend CT urogram and outpatient follow- up. Plans: Hematuria has resolved. This was likely related to patient being started on Eliquis. There was a period of time where he received 10 mg by mouth twice a day for a prolonged period of time which is likely the cause for his hematuria. Patient to follow-up with urology in the outpatient setting. CTA chest positive for PE. Bilateral duplex lower extremities positive for DVT. Plans: Continue Eliquis. Continue metoprolol. [id number] glucose 115. Plans: Insulin sliding scale. Regular Accu-Cheks. Hypoglycemic precautions. BP 112/79. Plans: Monitor vitals, adjust medications as necessary. Continue metoprolol. Plans: Lipitor held due to elevated liver enzymes. [Patient is admitted for mental health unit due to acute psychosis. His mentation has considerably improved since I saw him initially in the mental health unit. Patient is currently on Eliquis for bilateral DVT and PE. Hematuria likely due to Eliquis use, now resolved. Elevated liver enzymes likely related to Depakote use, improving with discontinuation. Thank you for this consult. Please call with any additional questions or concerns.]
[2019-07-11 17:24] LABS: Glucose,Whole Blood 128 mg/dL (75-99)
[2019-07-11 20:08] LABS: Glucose,Whole Blood 201 mg/dL (75-99)
[2019-07-11] MEDS: LITHIUM CARBONATE 300 MG CAP PO SCH (21:29)
[2019-07-11] MEDS: OLANZapine ODT 10 MG TAB PO SCH (21:29)
[2019-07-12 07:44] LABS: Glucose,Whole Blood 145 mg/dL (75-99)
[2019-07-12] MEDS: INSULIN ASPART (NovoLOG) 100 UNIT/ML VIAL SQ SCH ×4 (08:04→20:29)
[2019-07-12] MEDS: metFORMIN 500 MG TAB PO SCH ×2 (08:15→20:29)
[2019-07-12] MEDS: APIXABAN 5 MG TAB PO SCH ×2 (08:15→20:30)
[2019-07-12] MEDS: OLANZapine ODT 5 MG TAB PO SCH ×2 (08:15→21:14)
[2019-07-12] MEDS: METOPROLOL TARTRATE 12.5 MG TAB PO SCH ×2 (08:15→21:14)
[2019-07-12] MEDS: LITHIUM CARBONATE 150 MG CAP PO SCH ×2 (08:15→20:30)
[2019-07-12] MEDS: MAGNESIUM OXIDE 400 MG TAB PO SCH (08:15)
--- NOTE | 2019-07-12 12:31 | P.PN ---
Progress Note - Text Progress Note Date: 07/12/19 Interval History: Patient was seen today wandering the hallways and was agreeable to speak to wr florentino in the office. Patient claims that he has been trying to go to groups throat the weekend at states that he has had some "ups and downs". He states that he has been having difficulties with sleep and feels somewhat lethargic during the day and was agreeable to have his Zyprexa switched to nighttime dosing. Patient states that his mind has been feeling "calmer" and continues to be mildly confused at times with regard to the date however does acknowledge the situation and circumstances for his hospitalization. 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 Mobile Web Application Developer spoke in detail with patient about the risks of operating heavy machinery and possibility of him going back into a psychotic episode. Patient was tearful at times as he felt that he was not be able to live alone anymore. He states that he is not having any side effects from the lithium at this time. Patient had improving in touch and spend however was not able to list any of the past presidents prior to the current one. Patient eye contact has been improving gradually however patient has less of a constricted affect, was tearful at times. He states that his mood is "getting there" and denies any depression. Patient does not endorse any suicidal or homicidal ideations intent or plan. Patient also did not endorse any visual hallucinations or auditory hallucinations today. Patient has been compliant with his medications. Mental Status Exam: General Appearance: Patient appears to be stated age is alert, constricted affect and has fair hygiene. Patient is walking in the hallway, improving hygiene. Behavior: Patient is calmly seated following most commands. Somewhat tearful today. No tremor was noted. Speech: More fluent, normal rate. Mood/Affect: Mood is "getting there" , affect is constricted. Suicidality/Homicidality: Denies Perceptions: Patient did not endorse any visual hallucinations. He denies any auditory hallucinations. Though content/process: No perseveration today, less confused. More goal oriented however has poor judgment. Memory and concentration: AOX2, he believes it is "some time in July". Patient has mildly improving attention span and cannot do serial sevens. Judgment and insight: Poor, mildly improving. Assessment Unspecified psychosis, attempting to rule out dementia or encephalitis versus other degenerative neuropsychiatric conditions. Plan: -Patient continues to meet criteria for inpatient psychiatric admission for symptom stabilization and safety. Patient has signed adult voluntary form and medication consent and was placed in patient's chart. -Medications: We'll switch Zyprexa to night time dosing 15 mg nightly for mood stabilization/psychosis. We'll switch lithium 300mg daily + 450 mg daily at bedtime for mood stabilization. We'll check a lithium level tomorrow morning. -Ultrasound performed on 07/09/19 showed hepatic steatosis. -When necessary Zyprexa IM for agitation/aggression. -HIV - pending, Depakote level 54.2, and ESR 18. LFTs initially elevated which was thought to be due to Depakote which is discontinued and LFTs drawn yesterday showed improvement. -Medicine saw patient for hematuria which has resolved. Awaiting gonorrhea and chlamydia labs. Urology would like CT urogram along with outpatient follow-up. -ORCHARD MANAGER performed neuropsychic testing on 07/07/19 and found, MOCA score 11/30 - with poor visual spatial/executive functioning, attention, language, obstruction and delayed recall. Reconsult at 4 repeat neuropsych testing to check for any underlying cognitive issues and compare previous results. -NRT -not needed at this time as patient does not smoke -Appreciate neurology recommendations, no need for lumbar puncture or further neurological testing at this time and continue to monitor cognitive status along with behavioral symptoms. -SW on board for discharge planning. aircraft lay out worker to speak with patient's brother and sister with regards to discharge planning as patient cannot care for himself and if the possibility of patient being discharged to their care. Patient is high risk for noncompliance with medications and currently wants to get back to work and maintain his house by himself however patient was warned of the significant risks associated with this and high likelihood of repeat admission or being placed in other dangerous situations if he is does not have more support.
[2019-07-12 12:52] LABS: Glucose,Whole Blood 145 mg/dL (75-99)
[2019-07-12 18:00] LABS: Glucose,Whole Blood 179 mg/dL (75-99)
[2019-07-12 20:02] LABS: Glucose,Whole Blood 176 mg/dL (75-99)
[2019-07-12 20:43] LABS: HIV 1 AB Non-Reactive (Non-Reactive); HIV 2 AB Non-Reactive (Non-Reactive); HIV AB P24 Non-Reactive (Non-Reactive); HIV P24 AG Non-Reactive (Non-Reactive)
[2019-07-13 07:48] LABS: Glucose,Whole Blood 123 mg/dL (75-99)
[2019-07-13] MEDS: INSULIN ASPART (NovoLOG) 100 UNIT/ML VIAL SQ SCH ×4 (07:57→21:51)
[2019-07-13] MEDS: APIXABAN 5 MG TAB PO SCH ×2 (07:58→21:53)
[2019-07-13] MEDS: metFORMIN 500 MG TAB PO SCH ×2 (07:58→21:54)
[2019-07-13] MEDS: MAGNESIUM OXIDE 400 MG TAB PO SCH (07:59)
[2019-07-13] MEDS: METOPROLOL TARTRATE 12.5 MG TAB PO SCH ×2 (07:59→23:20)
[2019-07-13] MEDS ORDERED: LITHIUM CARBONATE 300 MG CAP PO SCH (09:00)
--- NOTE | 2019-07-13 10:33 | P.PN ---
Progress Note - Text Progress Note Date: 07/13/19 Interval History: Patient was seen today sitting in on group and was agreeable to speak to underwriter mortgage loan in the office. Patient appeared to be more constricted today and his affect and denied any overnight complaints. He states that he slept better throughout the night on the current dose of Zyprexa. He states that he feels less groggy during the day and more willing to participate. Patient continues to state that he feels confused and rambles at times is tangential/circumstantial in his thought process. Patient is more cooperative with underwriter mortgage loan. Patient was also noted to be tearful during the interview when discussing his discharge planning. Patient was alert and oriented 2 today and thought that he was "08/02/2019". 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 He states that he is not having any side effects from the lithium at this time. He denies any depression but does claim to be sad as he is "stuck on the mental davalos". Patient does not endorse any suicidal or homicidal ideations intent or plan. Patient also did not endorse any visual hallucinations or auditory hallucinations today. Patient has been compliant with his medications. Mental Status Exam: General Appearance: Patient appears to be stated age is alert, constricted affect and has fair hygiene. Patient is walking in the hallway, improving h ygiene. Behavior: Patient is calmly seated following most commands. Tearful today. No tremor was noted. Speech: More fluent, normal rate. Mood/Affect: Mood is "sad" , affect is tearful. Suicidality/Homicidality: Denies Perceptions: Patient did not endorse any visual hallucinations. He denies any auditory hallucinations. Though content/process: No perseveration today, less confused. More goal or iented however continues to have poor judgment. Tangential/circumstantial. Memory and concentration: AOX2, he believes it is "08/02/2019". Patient has mildly improving attention span and cannot do serial sevens. Judgment and insight: Poor, mildly improving. Assessment Unspecified psychosis, attempting to rule out dementia or encephalitis versus other degenerative neuropsychiatric conditions. Plan: -Patient continues to meet criteria for inpatient psychiatric admission for symptom stabilization and safety. Patient has signed adult voluntary form and medication consent and was placed in patient's chart. -Medications: We'll switch Zyprexa to night time dosing 15 mg nightly for mood stabilization/psychosis. We'll increase lithium 450mg BID for mood stabilization. [place] level drawn today was 0.5. -Ultrasound performed on 07/09/19 showed hepatic steatosis. -When necessary Zyprexa IM for agitation/aggression. -HIV - pending, Depakote level 54.2, and ESR 18. LFTs initially elevated which was thought to be due to Depakote which is discontinued and repeat LFTs showed improvement. -Medicine saw patient for hematuria which has resolved. gonorrhea and chlamydia labs - negative. Urology would like CT urogram along with outpatient follow-up. -FISHER TRAMMEL NET performed neuropsychic testing on 07/07/19 and found, MOCA score 11/30 - with poor visual spatial/executive functioning, attention, language, obstruction and delayed recall. Reconsulted to repeat cognitive testing to check for any underlying cognitive issues and compare to previous results. -NRT -not needed at this time as patient does not smoke -Appreciate neurology recommendations, no need for lumbar puncture or further neurological testing at this time and continue to monitor cognitive status along with behavioral symptoms. -SW on board for discharge planning. formula room worker continuing to speak with patient's brother and sister with regards to discharge planning as patient cannot care for himself and if the possibility of patient being discharged to their care. Patient is high risk for noncompliance with medications and currently wants to get back to work and maintain his house by himself however patient was warned of the significant risks associated with this and high likelihood of repeat admission or being placed in other dangerous situations at [facility] or at work if he is does not have more support.
[2019-07-13 12:55] LABS: Glucose,Whole Blood 139 mg/dL (75-99)
[2019-07-13 17:41] LABS: Glucose,Whole Blood 159 mg/dL (75-99)
[2019-07-13 20:17] LABS: Glucose,Whole Blood 245 mg/dL (75-99)
[2019-07-13] MEDS: LITHIUM CARBONATE 150 MG CAP PO SCH (21:53)
[2019-07-13] MEDS: OLANZapine ODT 5 MG TAB PO SCH (21:53)
[2019-07-14 07:50] LABS: Glucose,Whole Blood 146 mg/dL (75-99)
[2019-07-14] MEDS: INSULIN ASPART (NovoLOG) 100 UNIT/ML VIAL SQ SCH ×4 (07:58→21:49)
[2019-07-14] MEDS: APIXABAN 5 MG TAB PO SCH ×2 (09:41→21:51)
[2019-07-14] MEDS: LITHIUM CARBONATE 150 MG CAP PO SCH ×3 (09:41→21:51)
[2019-07-14] MEDS: METOPROLOL TARTRATE 12.5 MG TAB PO SCH ×2 (09:42→22:23)
[2019-07-14] MEDS: MAGNESIUM OXIDE 400 MG TAB PO SCH (09:42)
[2019-07-14] MEDS: metFORMIN 500 MG TAB PO SCH ×2 (09:42→21:50)
[2019-07-14] MEDS: MAGNESIUM HYDROXIDE 2,400 MG/10 ML CUP PO PRN (10:55)
--- NOTE | 2019-07-14 12:33 | P.PN ---
Progress Note - Text Progress Note Date: 07/14/19 Interval History: Patient was seen today sitting on his bed and was agreeable to speak to automatic typewriter inspector in the office. Patient continues to appear constricted today however was fairly tearful after discussing his stressors in life and also his disposition. Patient was cooperative for most of the interview and has been taking his medications. He states that he slept throughout the night and denied any overnight complaints. Patient continues to be somewhat confused during the interview and believed that it was 07/24/2019 today and appeared to be surprised one he was informed of the real date. Patient states that he has been trying to reach out to his brother and sister are however have not been returning calls. He states that he has been attempting to go to groups and participate as best as he can. Patient continues to plead and attempted negotiated with automatic typewriter inspector about his disposition and wanting to live on his own and continue to work. Patient rambles at times is tangential/circumstantial in his thought process. He states that he is not having any side effects from the lithium at this time. He claims that his mood is "sad" for his situation. Patient does not endorse any suicidal or homicidal ideations intent or plan. Patient also did not endorse any visual hallucinations or auditory hallucinations today. Patient has been compliant with his medications. Mental Status Exam: General Appearance: Patient appears to be stated age is alert, constricted affect and has fair hygiene. improving hygiene. Behavior: Patient is calmly seated following most commands. Tearful today. No tremor was noted. Speech: More fluent, normal rate. Mood/Affect: Mood is "sad" , affect is tearful. Suicidality/Homicidality: Denies Perceptions: Patient did not endorse any visual hallucinations. He denies any auditory hallucinations. Though content/process: No perseveration today, less confused. More goal oriented however continues to have poor judgment. Tangential/circumstantial and rambles at times.. Memory and concentration: AOX2, he believes it is "07/24/2019". Judgment and insight: Poor, mildly improving. Assessment Unspecified psychosis, attempting to rule out dementia or encephalitis versus other degenerative neuropsychiatric conditions. Plan: -Patient continues to meet criteria for inpatient psychiatric admission for symptom stabilization and safety. Patient has signed adult voluntary form and medication consent and was placed in patient's chart. -Medications: We'll continue with Zyprexa 15 mg nightly for mood stabilization/psychosis. We'll continue with lithium 450mg BID for mood stabilization. [place] level drawn on 07/13/2019 and was 0.5. -Ultrasound performed on 07/09/19 showed hepatic steatosis. Repeating LFTs for tomorrow morning. -When necessary Zyprexa IM for agitation/aggression. -HIV - pending, Depakote level 54.2, and ESR 18. -Medicine saw patient for hematuria which has resolved. gonorrhea and chlamydia labs - negative. Urology would like CT urogram along with outpatient follow-up. -RESPIRATORY SUPERVISOR performed neuropsychic testing on 07/07/19 and found, MOCA score 11/30 - with poor visual spatial/executive functioning, attention, language, obstruction and delayed recall. Repeat cognitive testing on 07/13/2019 showed an improvement in MOCA score 28/30. -NRT -not needed at this time as patient does not smoke -Appreciate neurology recommendations, no need for lumbar puncture or further neurological testing at this time and continue to monitor cognitive status along with behavioral symptoms. -SW on board for discharge planning. Patient's brother and sister are continuing to look at [facility] homes or other options for housing for patient. Patient is high risk for noncompliance and has poor judgment with medications and currently wants to get back to work and maintain his house by himself however patient was warned of the significant risks associated with this and high likelihood of repeat admission or being placed in other dangerous situations at home or at work if he is does not have more support.
[2019-07-14 12:36] LABS: Glucose,Whole Blood 154 mg/dL (75-99)
[2019-07-14] MEDS: SENNOSIDES 8.6 MG TAB PO PRN (12:56)
[2019-07-14 17:37] LABS: Glucose,Whole Blood 132 mg/dL (75-99)
[2019-07-14 19:56] LABS: Glucose,Whole Blood 234 mg/dL (75-99)
[2019-07-14] MEDS: OLANZapine ODT 5 MG TAB PO SCH (21:50)
[2019-07-15 07:41] LABS: Glucose,Whole Blood 141 mg/dL (75-99)
[2019-07-15] MEDS: metFORMIN 500 MG TAB PO SCH ×2 (07:55→21:22)
[2019-07-15] MEDS: APIXABAN 5 MG TAB PO SCH ×2 (07:55→21:22)
[2019-07-15] MEDS: LITHIUM CARBONATE 150 MG CAP PO SCH ×2 (07:57→21:21)
[2019-07-15] MEDS: INSULIN ASPART (NovoLOG) 100 UNIT/ML VIAL SQ SCH ×4 (07:58→21:19)
[2019-07-15] MEDS: MAGNESIUM OXIDE 400 MG TAB PO SCH (07:58)
[2019-07-15] MEDS: METOPROLOL TARTRATE 12.5 MG TAB PO SCH ×2 (07:58→22:40)
[2019-07-15] MEDS: SENNOSIDES 8.6 MG TAB PO PRN (08:02)
--- NOTE | 2019-07-15 09:51 | P.PN ---
Progress Note - Text Progress Note Date: 07/15/19 Interval History: Patient was seen today wondering always and was agreeable to speak to program writer in the office. Patient continues to have a constricted affect initially however did not endorse any complaints overnight. He states that he has noticed some shaking in his hands when he is holding a pen only and trying to write something however he states that this sometimes gets better. It has been "on and off" during the day. He states that he does not have a resting tremor. Patient claims that he slept throughout the night. He also claims that he has been attempting to go to groups. Patient spoke about other patients discharges and his stressors and began being tearful and continues to have emotional lability. Patient was oriented to time place and situation. Patient states that he has been continuing to try to reach out to his brother and sister are however have not been returning calls. Patient did have some memory difficulties during conversation as he was speaking about a group that he went to this morning however then corrected himself and states that "I probably didn't go to a group or they're probably wasn't a group". Patient rambles at times is tangential/circumstantial. He claims that his mood is "getting there" . Patient does not endorse any suicidal or homicidal ideations intent or plan. Patient also did not endorse any visual hallucinations or auditory hallucinations today. Patient has been compliant with his medications. Mental Status Exam: General Appearance: Patient appears to be stated age is alert, constricted affect and has fair hygiene. improving hygiene. Behavior: Patient is calmly seated following most commands. Tearful today. mild intention tremor was noted. Speech: More fluent, normal rate. Mood/Affect: Mood is "getting there" , affect is tearful. Suicidality/Homicidality: Denies Perceptions: Patient did not endorse any visual hallucinations. He denies any auditory hallucinations. Though content/process: No perseveration today, less confused. More goal oriented however continues to have poor judgment. Tangential/circumstantial and rambles at times.. Memory and concentration: AOX3, confused at times however is improving. Poor memory recall of earlier events in the day. Judgment and insight: Poor, mildly improving. Assessment Unspecified psychosis, attempting to rule out dementia or encephalitis versus other degenerative neuropsychiatric conditions. Plan: -Patient continues to meet criteria for inpatient psychiatric admission for symptom stabilization and safety. Patient has signed adult voluntary form and medication consent and was placed in patient's chart. -Medications: We'll continue with Zyprexa 15 mg nightly for mood stabilization/psychosis. We'll continue with lithium 450mg BID for mood stabilization. [place] level drawn on 07/13/2019 and was 0.5. -Ultrasound performed on 07/09/19 showed hepatic steatosis. Pending LFTs this morning. -When necessary Zyprexa IM for agitation/aggression. -HIV - pending, Depakote level 54.2, and ESR 18. -Medicine saw patient for hematuria which has resolved. gonorrhea and chlamydia labs - negative. Urology would like CT urogram along with outpatient follow-up. -AIRCRAFT CHARTER DISPATCHER performed neuropsychic testing on 07/07/19 and found, MOCA score 11/30 - with poor visual spatial/executive functioning, attention, language, obstruction and delayed recall. Repeat cognitive testing on 07/13/2019 showed an improvement in MOCA score 28/30. -NRT -not needed at this time as patient does not smoke -Appreciate neurology recommendations, no need for lumbar puncture or further neurological testing at this time and continue to monitor cognitive status along with behavioral symptoms. -SW on board for discharge planning. Patient's brother and sister are continuing to look at [facility] homes or other options for housing for patient. Patient is high risk for noncompliance and has poor judgment with medications and currently wants to get back to work and maintain his house by himself however patient was warned of the significant risks associated with this and high likelihood of repeat admission or being placed in other dangerous situations at home or at work if he is does not have more support. We'll meet again with team and discuss further options for patient and will likely need to have a family meeting with patient's sister involved.
[2019-07-15 10:55] LABS: Albumin 3.8 g/dL (3.5-5.0); Bilirubin, Delta 0.3 mg/dL (0.0-0.2); Bilirubin,Unconjugated 0.4 mg/dL (0.0-1.1); Total Bilirubin 0.7 mg/dL (0.2-1.3); Total Protein 7.2 g/dL (6.3-8.2)
[2019-07-15 12:45] LABS: Glucose,Whole Blood 113 mg/dL (75-99)
[2019-07-15 17:53] LABS: Glucose,Whole Blood 175 mg/dL (75-99)
[2019-07-15 20:10] LABS: Glucose,Whole Blood 174 mg/dL (75-99)
[2019-07-15] MEDS: OLANZapine ODT 5 MG TAB PO SCH (21:21)
[2019-07-16 07:45] LABS: Glucose,Whole Blood 173 mg/dL (75-99)
[2019-07-16] MEDS: INSULIN ASPART (NovoLOG) 100 UNIT/ML VIAL SQ SCH ×4 (07:56→20:33)
[2019-07-16] MEDS: MAGNESIUM HYDROXIDE 2,400 MG/10 ML CUP PO PRN (08:31)
[2019-07-16] MEDS: metFORMIN 500 MG TAB PO SCH ×2 (08:31→20:39)
[2019-07-16] MEDS: MAGNESIUM OXIDE 400 MG TAB PO SCH (08:31)
[2019-07-16] MEDS: LITHIUM CARBONATE 150 MG CAP PO SCH ×2 (08:31→20:38)
[2019-07-16] MEDS: METOPROLOL TARTRATE 12.5 MG TAB PO SCH ×2 (08:31→20:38)
[2019-07-16] MEDS: APIXABAN 5 MG TAB PO SCH ×2 (08:31→20:39)
--- NOTE | 2019-07-16 12:23 | P.PN ---
Progress Note - Text Progress Note Date: 07/16/19 Interval History: Patient was seen today wandering the hallways and was agreeable to speak to wr iter in the office. Patient appears to have an improving affect and states that he has no overnight complaints. He states that he slept approximately 7-8 hours last night with some minor interruptions. He states that he continues to have some minor hand trembling when he is holding a pen which she is continuing to monitor. Patient discussed with bid writer the concerns that his sister and brother have about him being released and also he states that he spoke with his brother and sister earlier today and claims that his brother will be seeking guardianship over him. Patient claims that "it's a good thing he is doing this for me". He also claims that he has been attempting to go to groups. Patient's emotional lability has been gradually improving and patient was oriented to time place and situation today. Patient rambles at times is tangential/circumstantial. He claims that his mood is "alright" . Patient does not endorse any suicidal or homicidal ideations intent or plan. Patient a lso did not endorse any visual hallucinations or auditory hallucinations today. Patient has been compliant with his medications. Mental Status Exam: General Appearance: Patient appears to be stated age is alert, constricted affect and has fair hygiene. improving hygiene. Behavior: Patient is calmly seated following most commands. mild intention tremor was noted. Speech: More fluent, normal rate. Mood/Affect: Mood is "alright" , affect is congruent Suicidality/Homicidality: Denies Perceptions: Patient did not endorse any visual hallucinations. He denies any auditory hallucinations. Though content/process: No perseveration today, less confused. More goal oriented. Tangential/circumstantial and rambles at times. Memory and concentration: AOX3, confused at times however is improving. Judgment and insight: mildly improving. Assessment Unspecified psychosis Plan: -Patient continues to meet criteria for inpatient psychiatric admission for symptom stabilization and safety. Patient has signed adult voluntary form and medication consent and was placed in patient's chart. -Medications: We'll continue with Zyprexa 15 mg nightly for mood stabilization/psychosis. We'll continue with lithium 450mg BID for mood stabilization. [place] level drawn on 07/13/2019 and was 0.5. -Ultrasound performed on 07/09/19 showed hepatic steatosis. LFTs show mild improvement. -When necessary Zyprexa IM for agitation/aggression. -HIV - pending, Depakote level 54.2, and ESR 18. -Medicine saw patient for hematuria which has resolved. gonorrhea and chlamydia labs - negative. Urology would like CT urogram along with outpatient follow-up. -ADMINISTRATIVE JOB TITLES performed neuropsychic testing on 07/07/19 and found, MOCA score 11/30 - with poor visual spatial/executive functioning, attention, language, obstruction and delayed recall. Repeat cognitive testing on 07/13/2019 showed an improvement in MOCA score 28/30. -NRT -not needed at this time as patient does not smoke -Appreciate neurology recommendations, no need for lumbar puncture or further neurological testing at this time and continue to monitor cognitive status along with behavioral symptoms. -SW on board for discharge planning. Patient is high risk for noncompliance and has poor judgment with medications and currently wants to get back to work and maintain his house by himself however patient was warned of the significant risks associated with this and high likelihood of repeat admission or being placed in other dangerous situations at home or at work if he is does not have more support. Brother is attempting to get guardianship at this time and will work on home health care/visits as a viable option.
[2019-07-16 12:45] LABS: Glucose,Whole Blood 115 mg/dL (75-99)
[2019-07-16 18:03] LABS: Glucose,Whole Blood 175 mg/dL (75-99)
[2019-07-16 20:23] LABS: Glucose,Whole Blood 251 mg/dL (75-99)
[2019-07-16] MEDS: OLANZapine ODT 5 MG TAB PO SCH (20:38)
[2019-07-17 07:49] LABS: Glucose,Whole Blood 135 mg/dL (75-99)
[2019-07-17] MEDS: INSULIN ASPART (NovoLOG) 100 UNIT/ML VIAL SQ SCH ×4 (08:02→20:12)
[2019-07-17] MEDS: APIXABAN 5 MG TAB PO SCH ×2 (09:00→20:10)
[2019-07-17] MEDS: METOPROLOL TARTRATE 12.5 MG TAB PO SCH ×2 (09:00→20:10)
[2019-07-17] MEDS: MAGNESIUM OXIDE 400 MG TAB PO SCH (09:00)
[2019-07-17] MEDS: metFORMIN 500 MG TAB PO SCH ×2 (09:00→20:10)
[2019-07-17] MEDS: LITHIUM CARBONATE 150 MG CAP PO SCH ×2 (09:01→20:10)
[2019-07-17 12:39] LABS: Glucose,Whole Blood 150 mg/dL (75-99)
--- NOTE | 2019-07-17 13:45 | P.PN ---
Progress Note - Text Progress Note Date: 07/17/19 Clinical Problems: Unspecified psychotic disorder Interim history: I reviewed the medical record and interviewed the patient. He denied concerns other than wanting to go home. He denied side effects to his current medications-lithium carbonate and olanzapine. He denied experiencing auditory, visual or olfactory hallucinations. He denied ideas reference, thought insertion, thought broadcasting or thought control. Mental status exam: He presented as a casually groomed elderly after [place] male who was pleasant on approach. He made eye contact and attended to the interview. He had a bright facial expression. His speech was spontaneous but perseverative. He had poverty of content of speech. His thinking was concrete but organized and coherent. He did not appear to be responding to internal stimuli. We completed the [facility] Orientation Memory and Concentration test. His total weighted error score was 14; total weighted error score greater than 10 is consistent with a dementia. He knew the month and year. He was able to register memory phrase "Viktor Ledbetter, [address] [place] [address]." He estimated time correctly (within 1 hour actual time). He was able to count backwards from 20- 1. He was unable to name the months of the year reverse order and could not recall the memory phrase after the above distraction exercise. Assessment: He has no apparent psychotic symptoms. He was not disoriented or confused. He appears to have some memory and attentional problems. Plan: Continue lithium 450 mg twice per day and Zyprexa 7.5 mg 3 times a day and 50 mg at bedtime. Continue Elavil close, NovoLog, metformin, Lopressor and Senokot as recommended by the artist consultant brim welt sewing machine operator.
[2019-07-17 17:58] LABS: Glucose,Whole Blood 162 mg/dL (75-99)
[2019-07-17 20:09] LABS: Glucose,Whole Blood 220 mg/dL (75-99)
[2019-07-17] MEDS: OLANZapine ODT 5 MG TAB PO SCH (20:10)
[2019-07-18 07:43] LABS: Glucose,Whole Blood 146 mg/dL (75-99)
[2019-07-18] MEDS: INSULIN ASPART (NovoLOG) 100 UNIT/ML VIAL SQ SCH ×4 (07:44→22:07)
[2019-07-18] MEDS: LITHIUM CARBONATE 150 MG CAP PO SCH ×2 (07:45→22:04)
[2019-07-18] MEDS: APIXABAN 5 MG TAB PO SCH ×2 (07:45→22:04)
[2019-07-18] MEDS: MAGNESIUM OXIDE 400 MG TAB PO SCH (07:46)
[2019-07-18] MEDS: METOPROLOL TARTRATE 12.5 MG TAB PO SCH ×2 (07:46→22:07)
[2019-07-18] MEDS: metFORMIN 500 MG TAB PO SCH ×2 (07:46→22:04)
[2019-07-18] MEDS: SENNOSIDES 8.6 MG TAB PO PRN (07:49)
[2019-07-18 12:44] LABS: Glucose,Whole Blood 114 mg/dL (75-99)
--- NOTE | 2019-07-18 16:49 | P.PN ---
Progress Note - Text Progress Note Date: 07/18/19 Clinical Problems: Unspecified psychotic disorder Interim history: I reviewed the medical record and interviewed the patient. He denied concerns other than wanting to go home. He denied side effects to his current medications-lithium carbonate and olanzapine. He denied experiencing auditory, visual or olfactory hallucinations. He denied ideas reference, thought insertion, thought broadcasting or thought control. Mental status exam: He presented as a casually groomed elderly after [place] male who was pleasant on approach. He made eye contact and attended to the interview. He had a bright facial expression. His speech was spontaneous but perseverative. He had poverty of content of speech. His thinking was concrete but organized and coherent. He did not appear to be responding to internal stimuli. Assessment: He has no apparent psychotic symptoms. Plan: Continue lithium 450 mg twice per day and Zyprexa 7.5 mg 3 times a day and 50 mg at bedtime. Continue Elavil close, NovoLog, metformin, Lopressor and Senokot as recommended by the neuropsychology medical consultant still pump operator.
[2019-07-18 17:45] LABS: Glucose,Whole Blood 108 mg/dL (75-99)
[2019-07-18 20:18] LABS: Glucose,Whole Blood 215 mg/dL (75-99)
[2019-07-18] MEDS: OLANZapine ODT 5 MG TAB PO SCH (22:05)
[2019-07-19] MEDS: INSULIN ASPART (NovoLOG) 100 UNIT/ML VIAL SQ SCH ×4 (08:05→20:27)
[2019-07-19 08:09] LABS: Glucose,Whole Blood 133 mg/dL (75-99)
[2019-07-19] MEDS: APIXABAN 5 MG TAB PO SCH ×2 (10:10→20:28)
[2019-07-19] MEDS: metFORMIN 500 MG TAB PO SCH ×2 (10:11→20:28)
[2019-07-19] MEDS: METOPROLOL TARTRATE 12.5 MG TAB PO SCH ×2 (10:11→20:29)
[2019-07-19] MEDS: LITHIUM CARBONATE 150 MG CAP PO SCH ×2 (10:11→20:28)
[2019-07-19] MEDS: MAGNESIUM OXIDE 400 MG TAB PO SCH (10:11)
--- NOTE | 2019-07-19 10:54 | PN ---
PROGRESS NOTE DATE OF SERVICE: 07/19/2019 CHIEF COMPLAINT: The patient was disorganized and confused. He was making statements of harm to himself and others. He had delusions and periods of agitation. INTERVAL HISTORY: The patient has been showing improvement. Overall, he is less confused and/or able to function appropriately within the contained environment of the unit. He had a quiet evening last night. He has been attending groups. He generally shows a fairly good mood in group. He can participate to a limited extent. It is noted that at the 1345 group yesterday, it was documented that the patient was bright, animated, attentive, and would initiate. It was also noted the following "the patient displayed difficulty grasping concept of coping skills and was inconsistently able to name coping skills. The patient superficially participates in group but appears to struggle with processing directions in participation." He reports that he slept well last night. Today he has been up. He comes out in the day area. He continues to wander about the unit when not in groups. He has been cooperative with care. He talked during the appointment about plans for discharge with his understanding that his brother would become guardian. He made the comment that would be for about a month to begin with. He said that he anticipated moving to [place] as part of a family plan. He noted that he has been talking to his brother and sister about discharge planning. He tolerates his psychotropic medications. MENTAL STATUS: Patient gave fairly good eye contact. He was somewhat restless. It was noted that he had less complaint of hand tremor and demonstrated no tremor. When I talked to him, he answered questions with direct responses. His thoughts were clear. He was somewhat concrete in responses. His affect was in a reasonable range. His mood was reserved. He did not appear to be significantly distressed. He made some vague references to auditory hallucinations. On cognitive exam, it is noted that the patient walked by the room and said hello to me at the start of the interview. He said he recognized me from my previous rounds about 3 weeks ago. He said he has been on the psychiatric unit for about a month. He could tell me his home address and approximately where his home was located in [place]. ASSESSMENT: I will continue the current diagnosis and treatment plan. I will continue psychotropic medications the same, which includes Zyprexa 15 mg at bedtime and lithium carbonate 450 mg twice a day. His last lithium level on 07/13 was 0.5. I will repeat a lithium level for Friday. We will continue to focus on stabilization and discharge planning. CAMILA / ZACN: [id number] / MTDD
[2019-07-19 12:50] LABS: Glucose,Whole Blood 108 mg/dL (75-99)
--- NOTE | 2019-07-19 15:01 | P.CON ---
Consult Note - . Consult date: 07/19/19 Assessment/Plan:: This is a 58-year-old male admitted with acute psychosis. Podiatry consult was obtained because of periungual discomfort in the digits and with dryness around the ankles. Patient denies recent trauma or associated digital swelling. D enies pruritus of the dried areas of the ankles. Patient is a diabetic. ALLERGIES: NKDA Past medical history: Type 2 diabetes, DVT, chronic venous insufficiency, hyperlipidemia, hypertension, anticoagulant therapy Local exam: Pedal pulses are intact and symmetrical bilaterally. DTRs symmetrical bilaterally with downgoing toes bilaterally. Sharp/dull sensation intact in both lower extremities. No signs of shoe irritation or ulcerations. Periungual discomfort noted of bilateral hallux nails due to elongation. No evidence of ingrown nails either foot. Web spaces are clear 1 through 4 bi laterally. Mild dryness of skin noted in the medial malleolar areas bilaterally with no excoriations or ulcerations. There are no plantar skin lesions noted bilaterally Assessment: Onychodystrophy Xerosis Plan: Patient instructed to use moisturizers daily as needed for dryness of skin. Onychoreduction of hallux nails bilaterally performed without incident and relief of patient's chief complaint. Patient instructed in diabetic foot care and advised to wear shoes for all weightbearing Podiatric follow-up as needed
[2019-07-19 17:43] LABS: Glucose,Whole Blood 162 mg/dL (75-99)
[2019-07-19 20:25] LABS: Glucose,Whole Blood 210 mg/dL (75-99)
[2019-07-19] MEDS: OLANZapine ODT 5 MG TAB PO SCH (20:29)
[2019-07-20 08:01] LABS: Glucose,Whole Blood 138 mg/dL (75-99)
[2019-07-20] MEDS: INSULIN ASPART (NovoLOG) 100 UNIT/ML VIAL SQ SCH ×4 (08:05→20:19)
[2019-07-20] MEDS: LITHIUM CARBONATE 150 MG CAP PO SCH ×2 (08:10→20:20)
[2019-07-20] MEDS: APIXABAN 5 MG TAB PO SCH ×2 (08:11→20:20)
[2019-07-20] MEDS: metFORMIN 500 MG TAB PO SCH ×2 (08:11→20:20)
[2019-07-20] MEDS: MAGNESIUM OXIDE 400 MG TAB PO SCH (08:11)
[2019-07-20] MEDS: METOPROLOL TARTRATE 12.5 MG TAB PO SCH (08:12)
--- NOTE | 2019-07-20 11:20 | PN ---
PROGRESS NOTE DATE OF SERVICE: 07/20/2019 CHIEF COMPLAINT: The patient was disorganized and confused. He was making statements of harm to himself and others. He had delusions and periods of agitation. INTERVAL HISTORY: The patient has been doing fairly well. He had a quiet evening last night. He comes out in the day area. He wanders about. He interacts with others. He has been attending groups. It is noteworthy that in the group at 15:30 the following was documented: "Patient responses to questions throughout group were not consistently on subject. The patient responds to a majority of questions "my motorcycle "." He reports sleeping well last night. Today he has been up. He comes out in the day area. He has attended groups this morning. He says he is in a good mood. He says that he anticipates moving to [place] to live with his brother. He says that he has not talked with either of his siblings since last week. He tolerates his psychotropic medications. MENTAL STATUS: The patient gave good eye contact. He had normal psychomotor activity. Speech was clear. He answered questions appropriately. His thoughts were coherent and goal directed. His affect was in a reasonable range. He smiled. His mood was even. There was no outward evidence of thought disorder. On cognitive exam he was oriented x3 and alert. He easily gave the day, date without difficulty. He remembered 2 out of 3 objects in 4 minutes. He could easily give the months of the year in reverse order without difficulty. He could do serial subtraction. ASSESSMENT: I will continue the current diagnosis and treatment plan. The patient shows fairly good cognitive performance this morning. It does appear that he has had some fluctuations which showed up yesterday in group. We reviewed his medications and discharge planning issues. We will continue to focus on stabilization and discharge planning. MMODL / IJN: [id number] /
[2019-07-20 12:43] LABS: Glucose,Whole Blood 104 mg/dL (75-99)
[2019-07-20 17:26] LABS: Glucose,Whole Blood 125 mg/dL (75-99)
[2019-07-20] MEDS: SENNOSIDES 8.6 MG TAB PO PRN (18:32)
[2019-07-20 20:02] LABS: Glucose,Whole Blood 172 mg/dL (75-99)
[2019-07-20] MEDS: OLANZapine ODT 5 MG TAB PO SCH (20:20)
[2019-07-21] MEDS: METOPROLOL TARTRATE 12.5 MG TAB PO SCH ×3 (00:21→21:08)
[2019-07-21 07:52] LABS: Glucose,Whole Blood 128 mg/dL (75-99)
[2019-07-21] MEDS: INSULIN ASPART (NovoLOG) 100 UNIT/ML VIAL SQ SCH ×4 (08:36→21:08)
[2019-07-21] MEDS: metFORMIN 500 MG TAB PO SCH ×2 (08:37→21:07)
[2019-07-21] MEDS: APIXABAN 5 MG TAB PO SCH ×2 (08:37→21:06)
[2019-07-21] MEDS: MAGNESIUM OXIDE 400 MG TAB PO SCH (08:37)
[2019-07-21] MEDS: LITHIUM CARBONATE 150 MG CAP PO SCH ×2 (08:38→21:06)
--- NOTE | 2019-07-21 11:30 | P.PN ---
Progress Note - Text Progress Note Date: 07/21/19 Interval History: Patient was seen today attending group and was agreeable to speak to advertising copywriter in the office. Patient appears to have an improving affect and states that he has no overnight complaints and claims that he's feeling more "positive about the future". Patient also claims that he "not sweating the small stuff" referring to the details with regards to his discharge plan. He states that his brother is getting guardianship on him and he is okay with that and also will be okay with having a nurse come to check on him at his house. He states that he slept approximately 7-8 hours last night with some minor interruptions. He states that his mood is "fine" and denies any depressive symptoms or anxiety at this time. He also claims that he has been attempting to go to groups. Patient's emotional lability has been gradually improving and patient was oriented to time place and situation today. Patient rambles at times is tangential/circumstantial. Patient does not endorse any suicidal or homicidal ideations intent or plan. Patient also did not endorse any visual hallucinations or auditory hallucinations today. Patient has been compliant with his medications. Mental Status Exam: General Appearance: Patient appears to be stated age is alert, constricted affect and has fair hygiene. improving hygiene and eye contact. Behavior: Patient is calmly seated following most commands. mild intention tremor was noted. Speech: More fluent, normal rate. Mood/Affect: Mood is "fine" , affect is congruent Suicidality/Homicidality: Denies Perceptions: Patient did not endorse any visual hallucinations. He denies any auditory hallucinations. Though content/process: No perseveration today, linear and goal oriented. Tangential/circumstantial and rambles at times. Memory and concentration: AOX3, confused at times however is improving. Judgment and insight: mildly improving however has lapses of impaired judgment and insight. Assessment Unspecified psychosis Plan: -Patient continues to meet criteria for inpatient psychiatric admission for symptom stabilization and safety. Patient has signed adult voluntary form and medication consent and was placed in patient's chart. -Medications: We'll continue with Zyprexa 15 mg nightly for mood stabilization/psychosis. We'll continue with lithium 450mg BID for mood stabilization. [place] level drawn on 07/13/2019 and was 0.5, repeat level drawn on 07/21/2019 was 0.8 -Ultrasound performed on 07/09/19 showed hepatic steatosis. LFTs show mild improvement. -When necessary Zyprexa IM for agitation/aggression. -Depakote level 54.2, and ESR 18. -Medicine saw patient for hematuria which has resolved. gonorrhea and chlamydia labs - negative. Urology would like CT urogram along with outpatient follow-up. -OUTBOARD MOTOR TESTER performed neuropsychic testing on 07/07/19 and found, MOCA score 11/30 - with poor visual spatial/executive functioning, attention, language, obstruction and delayed recall. Repeat cognitive testing on 07/13/2019 showed an improvement in MOCA score 28/30. -NRT -not needed at this time as patient does not smoke -Appreciate neurology recommendations, no need for lumbar puncture or further neurological testing at this time and continue to monitor cognitive status along with behavioral symptoms. -SW on board for discharge planning. Patient is high risk for noncompliance and has poor judgment with medications and currently wants to get back to work and maintain his house by himself however patient was warned of the significant risks associated with this and high likelihood of repeat admission or being placed in other dangerous situations at home or at work if he is does not have more support. Brother is attempting to get guardianship at this time and will work on home health care/visits as a viable option. Brother has guardianship hearing on 07/28/2019, then we'll likely discharge patient shortly after.
[2019-07-21 12:36] LABS: Glucose,Whole Blood 87 mg/dL (75-99)
[2019-07-21] MEDS: MAGNESIUM HYDROXIDE 2,400 MG/10 ML CUP PO PRN (16:13)
[2019-07-21 17:42] LABS: Glucose,Whole Blood 205 mg/dL (75-99)
[2019-07-21 20:32] LABS: Glucose,Whole Blood 186 mg/dL (75-99)
[2019-07-21] MEDS: OLANZapine ODT 5 MG TAB PO SCH (21:08)
[2019-07-22 07:43] LABS: Glucose,Whole Blood 148 mg/dL (75-99)
[2019-07-22] MEDS: INSULIN ASPART (NovoLOG) 100 UNIT/ML VIAL SQ SCH ×4 (07:56→21:38)
[2019-07-22] MEDS: metFORMIN 500 MG TAB PO SCH ×2 (08:36→21:42)
[2019-07-22] MEDS: LITHIUM CARBONATE 150 MG CAP PO SCH ×2 (08:36→21:41)
[2019-07-22] MEDS: APIXABAN 5 MG TAB PO SCH ×2 (08:36→21:42)
[2019-07-22] MEDS: MAGNESIUM OXIDE 400 MG TAB PO SCH (08:37)
[2019-07-22] MEDS: METOPROLOL TARTRATE 12.5 MG TAB PO SCH ×2 (09:38→21:41)
--- NOTE | 2019-07-22 12:09 | P.PN ---
Progress Note - Text Progress Note Date: 07/22/19 Interval History: Patient was seen today wandering the hallways and was agreeable to speak to wr iter in the office. Patient appears to have brighter affect and states that he has no overnight complaints. He states that he is continuing to stay positive and focused on his discharge. He states that he is trying to participate in groups as best as he can. He states that his brother is getting guardianship on him and he is okay with that and also will be okay with having a nurse come to check on him at his house. Patient claims that he understands why people are concerned about him and states that "I really do need help". He states that he slept approximately 7-8 hours last night. He states that his mood is "good" and denies any depressive symptoms or anxiety at this time. Patient's emotional lability has been gradually improving and patient was oriented to time place and situation today. Patient rambles at times is tangential/circumstantial. Patient does not endorse any suicidal or homicidal ideations intent or plan. Patient also did not endorse any visual hallucinations or auditory hallucinations today. Patient has been compliant with his medications. Mental Status Exam: General Appearance: Patient appears to be stated age is alert, improving affect and has fair hygiene. improving hygiene and eye contact. Behavior: Patient is calmly seated following most commands Speech: More fluent, normal rate. Mood/Affect: Mood is "good", affect is congruent Suicidality/Homicidality: Denies Perceptions: Patient did not endorse any visual hallucinations. He denies any auditory hallucinations. Though content/process: No perseveration today, linear and goal oriented. Tangential/circumstantial and rambles at times. Focused on discharge. Memory and concentration: AOX3, confused at times however is improving. Judgment and insight: mildly improving however has lapses of impaired judgment and insight. Assessment Unspecified psychosis Plan: -Patient continues to meet criteria for inpatient psychiatric admission for symptom stabilization and safety. Patient has signed adult voluntary form and medication consent and was placed in patient's chart. -Medications: We'll continue with Zyprexa 15 mg nightly for mood stabilization/psychosis. We'll continue with lithium 450mg BID for mood stabilization. [place] level drawn on 07/13/2019 and was 0.5, repeat level drawn on 07/21/2019 was 0.8 -Ultrasound performed on 1/31/20 showed hepatic steatosis. LFTs show mild improvement. -When necessary Zyprexa IM for agitation/aggression. -Depakote level 54.2, and ESR 18. -Medicine saw patient for hematuria which has resolved. gonorrhea and chlamydia labs - negative. Urology would like CT urogram along with outpatient follow-up. -DIE FINISHER FORGING performed neuropsychic testing on 07/07/19 and found, MOCA score 11/30 - with poor visual spatial/executive functioning, attention, language, obstruction and delayed recall. Repeat cognitive testing on 07/13/2019 showed an improvement in MOCA score 28/30. -NRT -not needed at this time as patient does not smoke -Appreciate neurology recommendations, no need for lumbar puncture or further neurological testing at this time and continue to monitor cognitive status along with behavioral symptoms. -SW on board for discharge planning. Patient is high risk for noncompliance and has poor judgment with medications and currently wants to get back to work and maintain his house by himself however patient was warned of the significant risks associated with this and high likelihood of repeat admission or being placed in other dangerous situations at home or at work if he is does not have more support. Brother will be getting guardianship on Friday of next week and social media intern arranging for home health care. Brother has guardianship hearing on 07/28/2019, then we'll likely discharge patient shortly after.
[2019-07-22 12:46] LABS: Glucose,Whole Blood 107 mg/dL (75-99)
[2019-07-22 17:33] LABS: Glucose,Whole Blood 248 mg/dL (75-99)
[2019-07-22 20:29] LABS: Glucose,Whole Blood 138 mg/dL (75-99)
[2019-07-22] MEDS: OLANZapine ODT 5 MG TAB PO SCH (21:42)
[2019-07-23 07:46] LABS: Glucose,Whole Blood 125 mg/dL (75-99)
[2019-07-23] MEDS: APIXABAN 5 MG TAB PO SCH ×2 (08:54→21:12)
[2019-07-23] MEDS: INSULIN ASPART (NovoLOG) 100 UNIT/ML VIAL SQ SCH ×4 (08:54→21:09)
[2019-07-23] MEDS: MAGNESIUM OXIDE 400 MG TAB PO SCH (08:55)
[2019-07-23] MEDS: METOPROLOL TARTRATE 12.5 MG TAB PO SCH ×2 (08:55→21:12)
[2019-07-23] MEDS: metFORMIN 500 MG TAB PO SCH ×2 (08:55→21:13)
[2019-07-23] MEDS: LITHIUM CARBONATE 150 MG CAP PO SCH ×2 (08:55→21:12)
--- NOTE | 2019-07-23 10:14 | P.PN ---
Progress Note - Text Progress Note Date: 07/23/19 Interval History: Patient was seen today sitting in on group and was agreeable to speak to chief underwriter in the office. Patient appears to have fair affect today and states that he has no overnight complaints and states that he is still remaining positive and looking forward to when he can be released from the hospital. He states that he has not talked to his brother however we'll try to do so over the weekend. He states that he also has not talked to his sister as he "don't want to bother her". He states that he is trying to participate in groups as best as he can. He states that his mood is "okay" and denies any depression at this time. He states that he slept approximately 8 hours last night. He states that his mood is "good" and denies any depressive symptoms or anxiety at this time. Patient's emotional lability has been gradually improving and patient was oriented to time place and situation today. Patient rambles at times is tangential/circumstantial however this is improving. Patient does not endorse any suicidal or homicidal ideations intent or plan. Patient also did not endorse any visual hallucinations or auditory hallucinations today. Patient has been compliant with his medications. Mental Status Exam: General Appearance: Patient appears to be stated age is alert, improving affect and has fair hygiene. Improving hygiene and eye contact. Behavior: Patient is calmly seated following most commands Speech: More fluent, normal rate. Mood/Affect: Mood is "ok", affect is congruent Suicidality/Homicidality: Denies Perceptions: Patient did not endorse any visual hallucinations. He denies any auditory hallucinations. Though content/process: No perseveration today, linear and goal oriented. Tangential/circumstantial and rambles at times. Focused on discharge. Memory and concentration: AOX3, confused at times however is improving. Judgment and insight: mildly improving however has lapses of impaired judgment and insight. Assessment Unspecified psychosis Plan: -Patient continues to meet criteria for inpatient psychiatric admission for symptom stabilization and safety. Patient has signed adult voluntary form and medication consent and was placed in patient's chart. -Medications: We'll continue with Zyprexa 15 mg nightly for mood stabilization/psychosis. We'll continue with lithium 450mg BID for mood stabilization. [place] level drawn on 07/13/2019 and was 0.5, repeat level drawn on 07/21/2019 was 0.8 -Ultrasound performed on 07/09/19 showed hepatic steatosis. LFTs show mild improvement. -When necessary Zyprexa IM for agitation/aggression. -Depakote level 54.2, and ESR 18. -Medicine saw patient for hematuria which has resolved. gonorrhea and chlamydia labs - negative. Urology would like CT urogram along with outpatient follow-up. -AUTOMOTIVE PORTER performed neuropsychic testing on 07/07/19 and found, MOCA score 11/30 - with poor visual spatial/executive functioning, attention, language, obstruction and delayed recall. Repeat cognitive testing on 07/13/2019 showed an improvement in MOCA score 28/30. -NRT -not needed at this time as patient does not smoke -Appreciate neurology recommendations, no need for lumbar puncture or further neurological testing at this time and continue to monitor cognitive status along with behavioral symptoms. -SW on board for discharge planning. Patient is high risk for noncompliance and has poor judgment with medications and currently wants to get back to work and maintain his house by himself however patient was warned of the significant risks associated with this and high likelihood of repeat admission or being placed in other dangerous situations at home or at work if he is does not have more support. Brother will be getting guardianship on Friday of next week and manager social responsibility arranging for home health care. Brother has guardianship hearing on 07/28/2019, then we'll likely discharge patient shortly after.
[2019-07-23 12:35] LABS: Glucose,Whole Blood 135 mg/dL (75-99)
[2019-07-23] MEDS: MAGNESIUM HYDROXIDE 2,400 MG/10 ML CUP PO PRN (13:35)
[2019-07-23 17:19] LABS: Glucose,Whole Blood 124 mg/dL (75-99)
[2019-07-23 20:09] LABS: Glucose,Whole Blood 190 mg/dL (75-99)
[2019-07-23] MEDS: OLANZapine ODT 5 MG TAB PO SCH (21:13)
[2019-07-24 07:48] LABS: Glucose,Whole Blood 139 mg/dL (75-99)
[2019-07-24] MEDS: INSULIN ASPART (NovoLOG) 100 UNIT/ML VIAL SQ SCH ×4 (08:13→20:14)
[2019-07-24] MEDS: APIXABAN 5 MG TAB PO SCH ×2 (08:14→20:17)
[2019-07-24] MEDS: LITHIUM CARBONATE 150 MG CAP PO SCH ×2 (08:15→20:16)
[2019-07-24] MEDS: METOPROLOL TARTRATE 12.5 MG TAB PO SCH ×2 (08:16→20:18)
[2019-07-24] MEDS: MAGNESIUM OXIDE 400 MG TAB PO SCH (08:16)
[2019-07-24] MEDS: metFORMIN 500 MG TAB PO SCH ×2 (08:16→20:16)
--- NOTE | 2019-07-24 10:40 | P.PN ---
Progress Note - Text Progress Note Date: 07/24/19 Interval History: Patient was seen today sitting in on group and was agreeable to speak to production underwriter in the office. Patient appears to have fair affect today and states that he has no overnight complaints. Patient claims that he is continuing to "stay on the bright side" and claims that he is talking to other patients and making new friends on the unit. He states that he is going to live with his brother in [place] however patient had to be corrected and states that his brother will be only seeking guardianship over him and he will not be living with him and will be going back home and patient acted pleasantly surprised. Dates that his mood is "good" and denies any depression at this time. He states that he slept approximately 7 hours last night. Patient's has been gradually improving and patient was oriented to time place and situation today. Patient rambles at times is tangential/circumstantial however is less at this time. Patient does not endorse any suicidal or homicidal ideations intent or plan. Patient also did not endorse any visual hallucinations or auditory hallucinations today. Patient has been compliant with his medications. Mental Status Exam: General Appearance: Patient appears to be stated age is alert, improving affect and has fair hygiene. Improving hygiene and eye contact. Behavior: Patient is calmly seated following most commands Speech: More fluent, normal rate. Mood/Affect: Mood is "good", affect is congruent Suicidality/Homicidality: Denies Perceptions: Patient did not endorse any visual hallucinations. He denies any auditory hallucinations. Though content/process: No perseveration today, linear and goal oriented. Tangential/circumstantial and rambles at times. Focused on discharge. Memory and concentration: AOX3, confused at times however is improving. Judgment and insight: mildly improving however has lapses of impaired judgment and insight. Assessment Unspecified psychosis Plan: -Patient continues to meet criteria for inpatient psychiatric admission for symptom stabilization and safety. Patient has signed adult voluntary form and medication consent and was placed in patient's chart. -Medications: We'll continue with Zyprexa 15 mg nightly for mood stabilization/psychosis. We'll continue with lithium 450mg BID for mood stabi lization. [place] level drawn on 07/13/2019 and was 0.5, repeat level drawn on 07/21/2019 was 0.8 -Ultrasound performed on 07/09/19 showed hepatic steatosis. LFTs show mild improvement. -When necessary Zyprexa IM for agitation/aggression. -Depakote level 54.2, and ESR 18. -Medicine saw patient for hematuria which has resolved. gonorrhea and chlamydia labs - negative. Urology would like CT urogram along with outpatient follow-up. -CHEESE WRAPPER performed neuropsychic testing on 07/07/19 and found, MOCA score 11/30 - with poor visual spatial/executive functioning, attention, language, obstruction and delayed recall. Repeat cognitive testing on 07/13/2019 showed an improvement in MOCA score 28/30. -NRT -not needed at this time as patient does not smoke -Appreciate neurology recommendations, no need for lumbar puncture or further neurological testing at this time and continue to monitor cognitive status along with behavioral symptoms. -SW on board for discharge planning. Patient is high risk for noncompliance and has poor judgment with medications and currently wants to get back to work and maintain his house by himself however patient was warned of the significant risks associated with this and high likelihood of repeat admission or being placed in other dangerous situations at home or at work if he is does not have more support. Brother will be getting guardianship on Friday of next week and psychosocial rehabilitation counselor arranging for home health care. Brother has guardianship hearing on 07/28/2019, then we'll likely discharge patient shortly after.
[2019-07-24 12:45] LABS: Glucose,Whole Blood 124 mg/dL (75-99)
[2019-07-24 17:39] LABS: Glucose,Whole Blood 168 mg/dL (75-99)
[2019-07-24 20:04] LABS: Glucose,Whole Blood 187 mg/dL (75-99)
[2019-07-24] MEDS: OLANZapine ODT 5 MG TAB PO SCH (20:16)
[2019-07-25 07:48] LABS: Glucose,Whole Blood 117 mg/dL (75-99)
[2019-07-25] MEDS: INSULIN ASPART (NovoLOG) 100 UNIT/ML VIAL SQ SCH ×4 (07:57→20:41)
[2019-07-25] MEDS: MAGNESIUM OXIDE 400 MG TAB PO SCH (07:59)
[2019-07-25] MEDS: APIXABAN 5 MG TAB PO SCH ×2 (07:59→20:43)
[2019-07-25] MEDS: LITHIUM CARBONATE 150 MG CAP PO SCH ×2 (07:59→20:43)
[2019-07-25] MEDS: METOPROLOL TARTRATE 12.5 MG TAB PO SCH ×2 (07:59→20:43)
[2019-07-25] MEDS: metFORMIN 500 MG TAB PO SCH ×2 (07:59→20:43)
--- NOTE | 2019-07-25 11:09 | P.PN ---
Progress Note - Text Progress Note Date: 07/25/19 Interval History: Patient was seen today laying in his bed and was agreeable to speak to assembly instructions writer in the office. Patient appears to have an improved affect today and states that he has no overnight complaints. He states that he has a calendar on the wall and showed assembly instructions writer that he is crossing off the days so that he can stay oriented and focused on when he is content to be discharged from the unit. He states that he'll be going back to his house on discharge and his brother will be guardian. Dates that his mood is "good" and denies any depression at this time. He states that he slept approximately 7 hours last night. Patient's has been gradually improving and patient was oriented to time place and situation today. Patient rambles at times is tangential/circumstantial however is less at this time. Patient does not endorse any suicidal or homicidal ideations intent or plan. Patient also did not endorse any visual hallucinations or auditory hallucinations today. Patient has been compliant with his medications. Mental Status Exam: General Appearance: Patient appears to be stated age is alert, improving affect and has fair hygiene. Improving hygiene and eye contact. Behavior: Patient is calmly seated following most commands Speech: More fluent, normal rate. Mood/Affect: Mood is "good", affect is congruent Suicidality/Homicidality: Denies Perceptions: Patient did not endorse any visual hallucinations. He denies any auditory hallucinations. Though content/process: No perseveration today, linear and goal oriented. Tangential/circumstantial and rambles at times. Focused on discharge. Memory and concentration: AOX3, less confused. Judgment and insight: mildly improving however has lapses of impaired judgment and insight. Assessment Unspecified psychosis Plan: -Patient continues to meet criteria for inpatient psychiatric admission for symptom stabilization and safety. Patient has signed adult voluntary form and medication consent and was placed in patient's chart. -Medications: We'll continue with Zyprexa 15 mg nightly for mood stabilization/psychosis. We'll continue with lithium 450mg BID for mood stabilization. [place] level drawn on 07/13/2019 and was 0.5, repeat level drawn on 07/21/2019 was 0.8 -Ultrasound performed on 07/09/19 showed hepatic steatosis. LFTs show mild improvement. -When necessary Zyprexa IM for agitation/aggression. -Depakote level 54.2, and ESR 18. -Medicine saw patient for hematuria which has resolved. gonorrhea and chlamydia labs - negative. Urology would like CT urogram along with outpatient follow-up. -SLEEPING CAR SERVICE ATTENDANT performed neuropsychic testing on 07/07/19 and found, MOCA score 11/30 - with poor visual spatial/executive functioning, attention, language, obstruction and delayed recall. Repeat cognitive testing on 07/13/2019 showed an improvement in MOCA score 28/30. -NRT -not needed at this time as patient does not smoke -Appreciate neurology recommendations, no need for lumbar puncture or further neurological testing at this time and continue to monitor cognitive status along with behavioral symptoms. -SW on board for discharge planning. Patient is high risk for noncompliance and has poor judgment with medications and currently wants to get back to work and maintain his house by himself however patient was warned of the significant risks associated with this and high likelihood of repeat admission or being placed in other dangerous situations at home or at work if he is does not have more support. Brother will be getting guardianship on Friday of next week and director of social media marketing arranging for home health care. Brother has guardianship hearing on 07/28/2019, then we'll likely discharge patient shortly after.
[2019-07-25 12:43] LABS: Glucose,Whole Blood 137 mg/dL (75-99)
[2019-07-25 17:31] LABS: Glucose,Whole Blood 213 mg/dL (75-99)
[2019-07-25 20:21] LABS: Glucose,Whole Blood 234 mg/dL (75-99)
[2019-07-25] MEDS: OLANZapine ODT 5 MG TAB PO SCH (20:43)
[2019-07-26 07:46] LABS: Glucose,Whole Blood 131 mg/dL (75-99)
[2019-07-26] MEDS: INSULIN ASPART (NovoLOG) 100 UNIT/ML VIAL SQ SCH ×4 (07:50→20:03)
[2019-07-26] MEDS: APIXABAN 5 MG TAB PO SCH ×2 (08:21→20:07)
[2019-07-26] MEDS: METOPROLOL TARTRATE 12.5 MG TAB PO SCH ×2 (08:21→20:07)
[2019-07-26] MEDS: MAGNESIUM OXIDE 400 MG TAB PO SCH (08:21)
[2019-07-26] MEDS: LITHIUM CARBONATE 150 MG CAP PO SCH ×2 (08:22→20:07)
[2019-07-26] MEDS: metFORMIN 500 MG TAB PO SCH ×2 (08:22→20:08)
[2019-07-26 12:41] LABS: Glucose,Whole Blood 114 mg/dL (75-99)
--- NOTE | 2019-07-26 13:28 | P.PN ---
Progress Note - Text Progress Note Date: 07/26/19 Interval History: Patient was seen today wondering always and was agreeable to speak to advertising copywriter in the office. Patient appears to have an improved affect today. He was speaking about watching a movie earlier today and continues to be future oriented and speaking about his discharge and plans for when he gets back home. He continues to acknowledge that his medications are helping him with his mood and to keep him out of the hospital. He denies any overnight complaints at this time. He states that he'll be going back to his house on discharge and his brother will be guardian. 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 Dates that his mood is "good" and denies any depression at this time. He states that he slept approximately 7 hours last night. Patient's has been gradually improving and patient was oriented to time place and situation today. Patient rambles at times is tangential/circumstantial however is less at this time. Patient does not endorse any suicidal or homicidal ideations intent or plan. Patient also did not endorse any visual hallucinations or auditory hallucinations today. Patient has been compliant with his medications. Mental Status Exam: General Appearance: Patient appears to be stated age is alert, improving affect and has fair hygiene. Improving hygiene and eye contact. Wearing street clothing. Behavior: Patient is calmly seated following most commands Speech: More fluent, normal rate. Mood/Affect: Mood is "good", affect is congruent Suicidality/Homicidality: Denies Perceptions: Patient did not endorse any visual hallucinations. He denies any auditory hallucinations. Though content/process: No perseveration today, linear and goal oriented. Tangential/circumstantial and rambles at times. Focused on discharge. Memory and concentration: AOX3, less confused. Judgment and insight: mildly improving however has lapses of impaired judgment and insight. Assessment Unspecified psychosis Plan: -Patient continues to meet criteria for inpatient psychiatric admission for symptom stabilization and safety. Patient has signed adult voluntary form and medication consent and was placed in patient's chart. -Medications: We'll continue with Zyprexa 15 mg nightly for mood st abilization/psychosis. We'll continue with lithium 450mg BID for mood stabilization. [place] level drawn on 07/13/2019 and was 0.5, repeat level drawn on 07/21/2019 was 0.8. Will order a lithium level for tomorrow morning. -Ultrasound performed on 07/09/19 showed hepatic steatosis. LFTs show mild improvement. -When necessary Zyprexa IM for agitation/aggression. -Depakote level 54.2, and ESR 18. -Medicine saw patient for hematuria which has resolved. gonorrhea and chlamydia labs - negative. Urology would like CT urogram along with outpatient follow-up. -JUICE STANDARDIZER performed neuropsychic testing on 07/07/19 and found, MOCA score 11/30 - with poor visual spatial/executive functioning, attention, language, obstruction and delayed recall. Repeat cognitive testing on 07/13/2019 showed an improvement in MOCA score 28/30. -NRT -not needed at this time as patient does not smoke -Appreciate neurology recommendations, no need for lumbar puncture or further neurological testing at this time and continue to monitor cognitive status along with behavioral symptoms. -SW on board for discharge planning. Patient is high risk for noncompliance and has poor judgment with medications and currently wants to get back to work and maintain his house by himself however patient was warned of the significant risks associated with this and high likelihood of repeat admission or being placed in other dangerous situations at home or at work if he is does not have more support. Brother will be getting guardianship on Friday of next week and secondary social studies teacher arranging for home health care. Brother has guardianship hearing on 07/28/2019, then we'll likely discharge patient shortly after.
[2019-07-26 18:12] LABS: Glucose,Whole Blood 146 mg/dL (75-99)
[2019-07-26 19:55] LABS: Glucose,Whole Blood 273 mg/dL (75-99)
[2019-07-26] MEDS: OLANZapine ODT 5 MG TAB PO SCH (20:08)
[2019-07-27 07:38] LABS: Glucose,Whole Blood 132 mg/dL (75-99)
[2019-07-27] MEDS: INSULIN ASPART (NovoLOG) 100 UNIT/ML VIAL SQ SCH ×4 (07:43→20:26)
[2019-07-27] MEDS: APIXABAN 5 MG TAB PO SCH ×2 (07:45→20:49)
[2019-07-27] MEDS: metFORMIN 500 MG TAB PO SCH ×2 (07:45→20:49)
[2019-07-27] MEDS: LITHIUM CARBONATE 150 MG CAP PO SCH ×2 (07:45→20:49)
[2019-07-27] MEDS: METOPROLOL TARTRATE 12.5 MG TAB PO SCH ×2 (07:46→20:49)
[2019-07-27] MEDS: MAGNESIUM OXIDE 400 MG TAB PO SCH (07:46)
--- NOTE | 2019-07-27 10:26 | P.PN ---
Progress Note - Text Progress Note Date: 07/27/19 Interval History: Patient was seen today sitting in on group and was agreeable to speak to job specification writer in the office. Patient appears to have an improved affect today and was talkative and cooperative with job specification writer during conversation. Patient states that he tried to speak with his sister yesterday and left her a voice message however has not heard back from her. Patient continues to be future oriented and speaking about his discharge and plans. He is continuing to track days on his calendar and is excited for tomorrow when he will have a guardianship hearing. He continues to acknowledge that his medications are helping him with his mood and keeping him calmer. He denies any overnight complaints at this time. He states that his mood is "fine" and denies any depression at this time or any anxiety. He states that he slept approximately 6-7 hours last night. Patient's has been gradually improving and patient was oriented to time place and situation today. Patient rambles at times is tangential/circumstantial however is less at this time. Patient does not endorse any suicidal or homicidal ideations intent or plan. Patient also did not endorse any visual hallucinations or auditory hallucinations today. Patient has been compliant with his medications. Mental Status Exam: General Appearance: Patient appears to be stated age is alert, improving affect and has fair hygiene. Improving hygiene and eye contact. Wearing street clothing. Behavior: Patient is calmly seated following most commands Speech: More fluent, normal rate. Mood/Affect: Mood is "fine", affect is congruent Suicidality/Homicidality: Denies Perceptions: Patient did not endorse any visual hallucinations. He denies any auditory hallucinations. Though content/process: No perseveration today, linear and goal oriented. Tangential/circumstantial and rambles at times. Focused on discharge. Memory and concentration: AOX3, less confused. Judgment and insight: mildly improving however has lapses of impaired judgment and insight. Assessment Unspecified psychosis Plan: -Patient continues to meet criteria for inpatient psychiatric admission for symptom stabilization and safety. Patient has signed adult voluntary form and medication consent and was placed in patient's chart. -Medications: We'll continue with Zyprexa 15 mg nightly for mood stabilization/psychosis. We'll continue with lithium 450mg BID for mood stabilization. [place] level drawn on 07/13/2019 and was 0.5, repeat level drawn on 07/21/2019 was 0.8, drawn on 07/27/2019 was 0.7 -Ultrasound performed on 07/09/19 showed hepatic steatosis. LFTs show mild improvement. This will need to be followed up as an outpatient. -When necessary Zyprexa IM for agitation/aggression. -Depakote level 54.2, and ESR 18. -Medicine saw patient for hematuria which has resolved. gonorrhea and chlamydia labs - negative. Urology would like CT urogram along with outpatient follow-up. -ORTHO RN performed neuropsychic testing on 07/07/19 and found, MOCA score 11/30 - with poor visual spatial/executive functioning, attention, language, obstruction and delayed recall. Repeat cognitive testing on 07/13/2019 showed an improvement in MOCA score 28/30. -NRT -not needed at this time as patient does not smoke -Appreciate neurology recommendations, no need for lumbar puncture or further neurological testing at this time and continue to monitor cognitive status along with behavioral symptoms. -SW on board for discharge planning. Patient is high risk for noncompliance and has poor judgment with medications and currently wants to get back to work and maintain his house by himself however patient was warned of the significant risks associated with this and high likelihood of repeat admission or being placed in other dangerous situations at home or at work if he is does not have more support. Brother will be getting guardianship tomorrow and director social service arranging for home health care. Brother has guardianship hearing on 07/28/2019, then we'll likely discharge patient shortly after.
[2019-07-27 12:54] LABS: Glucose,Whole Blood 135 mg/dL (75-99)
[2019-07-27 17:26] LABS: Glucose,Whole Blood 196 mg/dL (75-99)
[2019-07-27 20:21] LABS: Glucose,Whole Blood 243 mg/dL (75-99)
[2019-07-27] MEDS: OLANZapine ODT 5 MG TAB PO SCH (20:49)
[2019-07-28 07:51] LABS: Glucose,Whole Blood 137 mg/dL (75-99)
[2019-07-28] MEDS: METOPROLOL TARTRATE 12.5 MG TAB PO SCH ×2 (08:29→20:47)
[2019-07-28] MEDS: metFORMIN 500 MG TAB PO SCH ×2 (08:30→20:44)
[2019-07-28] MEDS: MAGNESIUM OXIDE 400 MG TAB PO SCH (08:30)
[2019-07-28] MEDS: LITHIUM CARBONATE 150 MG CAP PO SCH ×2 (08:30→20:44)
[2019-07-28] MEDS: INSULIN ASPART (NovoLOG) 100 UNIT/ML VIAL SQ SCH ×4 (08:30→21:35)
[2019-07-28] MEDS: APIXABAN 5 MG TAB PO SCH ×2 (08:30→20:44)
--- NOTE | 2019-07-28 11:12 | P.PN ---
Progress Note - Text Progress Note Date: 07/28/19 Interval History: Patient was seen today attending group and was directable and agreeable to speak to sba underwriter in the office. Patient continues to be talkative and polite with sba underwriter in mention feeling "positive about getting out of here". He states that today is the day that he finds out about the guardianship hearing and is excited for the news. He spoke about being okay with home health care nurse checking on him along with his sister as well. He states that he has been getting along we ll with others on the unit and spoke about the importance of staying on his medications. He states that his mood has been "good" and denies any issues with the medications at this time denied any overnight complaints at this time. He denies any depression at this time or any anxiety. He states that he slept approximately 6-7 hours last night. Patient was oriented to time place and situation today. Patient rambles at times is tangential/circumstantial. Patient does not endorse any suicidal or homicidal ideations intent or plan. Patient also did not endorse any visual hallucinations or auditory hallucinations today. Patient has been compliant with his medications. Mental Status Exam: General Appearance: Patient appears to be stated age is alert, improving affect and has fair hygiene. Improving hygiene and eye contact. Wearing street clothing. Behavior: Patient is calmly seated following most commands Speech: More fluent, normal rate. Mood/Affect: Mood is "good", affect is congruent Suicidality/Homicidality: Denies Perceptions: Patient did not endorse any visual hallucinations. He denies any auditory hallucinations. Though content/process: No perseveration today, linear and goal oriented. Tangential/circumstantial and rambles at times. Focused on discharge. Memory and concentration: AOX3, less confused. Judgment and insight: mildly improving however has lapses of impaired judgment and insight. Assessment Unspecified psychosis Plan: -Patient continues to meet criteria for inpatient psychiatric admission for symptom stabilization and safety. Patient has signed adult voluntary form and medication consent and was placed in patient's chart. -Medications: We'll continue with Zyprexa 15 mg nightly for mood stabilization/psychosis. We'll continue with lithium 450mg BID for mood stabilization. [place] level drawn on 07/13/2019 and was 0.5, repeat level drawn on 07/21/2019 was 0.8, drawn on 07/27/2019 was 0.7 -Ultrasound performed on 07/09/19 showed hepatic steatosis. LFTs show mild improvement. This will need to be followed up as an outpatient. -When necessary Zyprexa IM for agitation/aggression. -Depakote level 54.2, and ESR 18. -Medicine saw patient for hematuria which has resolved. gonorrhea and chlamydia labs - negative. Urology would like CT urogram along with outpatient follow-up. -TRUCK MANAGER performed neuropsychic testing on 07/07/19 and found, MOCA score 11/30 - with poor visual spatial/executive functioning, attention, language, obstruction and delayed recall. Repeat cognitive testing on 07/13/2019 showed an improvement in MOCA score 28/30. -NRT -not needed at this time as patient does not smoke -Appreciate neurology recommendations, no need for lumbar puncture or further neurological testing at this time and continue to monitor cognitive status along with behavioral symptoms. -SW on board for discharge planning. Patient is high risk for noncompliance and has poor judgment with medications and currently wants to get back to work and maintain his house by himself however patient was warned of the significant risks associated with this and high likelihood of repeat admission or being placed in other dangerous situations at home or at work if he is does not have more support. Brother will be getting guardianship today and social media campaign manager is currently arranging for home health care. Plan will be to discharge patient tomorrow back home with brother as guardian and home health care in place.
[2019-07-28 12:45] LABS: Glucose,Whole Blood 141 mg/dL (75-99)
[2019-07-28 13:24] VITALS: BMI 31.0
[2019-07-28 17:23] LABS: Glucose,Whole Blood 159 mg/dL (75-99)
[2019-07-28] MEDS: SENNOSIDES 8.6 MG TAB PO PRN (19:41)
[2019-07-28 20:18] LABS: Glucose,Whole Blood 227 mg/dL (75-99)
[2019-07-28] MEDS: OLANZapine ODT 5 MG TAB PO SCH (20:47)
[2019-07-29 07:02] VITALS: BP 109/66; PULSE 80; RESP 14
[2019-07-29 07:44] LABS: Glucose,Whole Blood 139 mg/dL (75-99)
[2019-07-29] MEDS: APIXABAN 5 MG TAB PO SCH (08:09)
[2019-07-29] MEDS: INSULIN ASPART (NovoLOG) 100 UNIT/ML VIAL SQ SCH ×2 (08:09→12:55)
[2019-07-29] MEDS: LITHIUM CARBONATE 150 MG CAP PO SCH (08:10)
[2019-07-29] MEDS: METOPROLOL TARTRATE 12.5 MG TAB PO SCH (08:10)
[2019-07-29] MEDS: MAGNESIUM OXIDE 400 MG TAB PO SCH (08:10)
[2019-07-29] MEDS: metFORMIN 500 MG TAB PO SCH (08:10)
[2019-07-29 09:26] VITALS: TEMP 97.8
[2019-07-29 12:48] LABS: Glucose,Whole Blood 118 mg/dL (75-99)
--- NOTE | 2019-07-30 05:45 | DS ---
DISCHARGE SUMMARY DATE OF SERVICE: 07/29/2019 DATE OF ADMISSION: 06/26/2019 DATE OF DISCHARGE: 07/29/2019. ADMISSION AND DISCHARGE DIAGNOSES: 1. Bipolar affective disorder, manic phase with psychotic features. 2. Rule out catatonia. 3. Diabetes mellitus. 4. History of deep vein thrombosis. 5. Hyperlipidemia. 6. Hypertension. HISTORY OF PRESENTING ILLNESS: The patient is a 58-year-old male. He was admitted to the medical floor on 06/24 with chief complaint of acute encephalopathy, tachycardia and hypoxia. He had two recent previous psychiatric hospitalizations including an admission 06/19 to . At that time, he was transferred from the psychiatric unit to the medical unit as noted above. On admission to the psychiatric unit, he was having problems in the community with agitation. He was in a restaurant, yelling at people. He was confused. Previously, he was admitted 05/31 to 06/08/2019. At that admission, he had suicidal thinking. He was noted to be very disorganized in his thoughts and paranoid. He had a mix of manic and depressive symptoms. He was discharged on Depakote ER 500 mg a day and Zyprexa 15 mg a day. He was stabilized medically and on June 27 was transferred back to the psychiatric unit. MENTAL STATUS EXAM: The patient was confused. He spoke in phrases, not sentences, and most of what he said was disorganized and without clear meaning. He was restless. His affect fluctuated. He could be intense at times. His mood was dysphoric. He showed significant thought disorder, especially with disorganized thoughts. He voiced no clear thoughts of harm to self or others. He could not respond to orientation questions, though he was oriented to the environment. COURSE OF HOSPITALIZATION: The patient continued to have problems with confusion, disorganized thoughts, anxiety. It is noted that neurologic workup was initiated with MRI. Neurology and imaging were negative for neurologic issues. For a number of days, the patient required one-on-one staffing mainly because he was confused and disorganized in his behavior. He would roam the unit. He had pressured speech. He talked in scrambled phrases and sentences with very little that was intelligible. At times when he walked, he would walk in a very slow stilted manner. There would be significant latency in his responses. He was initially started on a combination of Zyprexa, which was titrated to 20mg daily, and Depakote. Due to continued difficulties he was switched from Depakote to Okarche, titrated to 450mg BID.He was felt to have symptoms of catatonia and was started on Ativan in addition to his other psychotropics. He had periods where he was unsteady on his feet and required wheelchair support. It is noteworthy that orientation fluctuated. There would be times that he could be somewhat clear in orientation and be able to respond appropriately to some basic orientation questions while at other times, he would seem to be in a totally confused state and not be able to answer any of those questions at all. He slept well at night. As his hospitalization progressed, he showed gradual improvement both in orientation and function. Around day 10 of his hospitalization, he was able to go off one-to-one. He became more communicative. He could respond appropriately to questions regarding his current situation as well as issues from his past and discharge planning issues. He stayed in touch primarily with his brother who was in the process of applying for guardianship. There was some question of whether he may require outpatient placement in a supportive environment given the degree of confusion he had. Toward the end of his hospitalization, he continued to make progress. Cognition improved to the point where he was well oriented and able to actively engage in discharge planning. In the last third of his hospitalization, his mood improved considerably to the point where he maintained an even positive mood, anxiety symptoms gradually lessened. At times, his speech could be rambling or he would be tangential and circumstantial, though that also gradually declined. He began being able to engage in group activities appropriately. He tolerated medications well. CONDITION AT DISCHARGE: Patient was stable. He voiced no thoughts of harm to self or others. He tolerated his medications. He was in agreement with discharge plans. RECOMMENDATIONS AND FOLLOWUP: The patient is discharged back to his own home. He will have followup with [facility] who will be making home visits 3 days a week. Discharge medications included: 1. Zyprexa 15 mg at bedtime. 2. Okarche carbonate 450 mg twice a day, O[place] level of 07/27/2019m was 0.7meq/ml. MMODL / IJN: [id number] / [facility]
== END 2019-07-29 13:48 | disposition home or self-care (01) | DRG 885 ==
LOC: 3MHU 17:40
PROVIDERS: ADMIT Psychiatry & Neurology Psychiatry; ATTEND Psychiatry & Neurology Psychiatry
DX: F31.2 Bipolar disorder, current episode manic severe with psychotic features (principal); I26.99 Other pulmonary embolism without acute cor pulmonale; I82.403 Acute embolism and thrombosis of unspecified deep veins of lower extremity, bilateral; R45.851 Suicidal ideations; F20.2 Catatonic schizophrenia; R45.850 Homicidal ideations; E11.9 Type 2 diabetes mellitus without complications; K76.0 Fatty (change of) liver, not elsewhere classified; E78.5 Hyperlipidemia, unspecified; E83.42 Hypomagnesemia; F41.0 Panic disorder [episodic paroxysmal anxiety]; I10 Essential (primary) hypertension; T42.6X5A Adverse effect of other antiepileptic and sedative-hypnotic drugs, initial encounter; T45.515A Adverse effect of anticoagulants, initial encounter; I16.0 Hypertensive urgency; J32.0 Chronic maxillary sinusitis; L60.3 Nail dystrophy; L85.3 Xerosis cutis; I87.2 Venous insufficiency (chronic) (peripheral); R31.0 Gross hematuria; R74.8 Abnormal levels of other serum enzymes; R26.2 Difficulty in walking, not elsewhere classified; R53.1 Weakness; R29.6 Repeated falls; Z79.01 Long term (current) use of anticoagulants; Z79.84 Long term (current) use of oral hypoglycemic drugs; Z79.899 Other long term (current) drug therapy; Z91.83 Wandering in diseases classified elsewhere; Z80.42 Family history of malignant neoplasm of prostate; Z82.3 Family history of stroke
CPT/HCPCS: 76705; 80048; 80053; 80061; 80076; 80164; 80165; 80178; 81001; 83036; 83735; 84100; 84484; 85025; 85027; 85652; 87086; 87390; 87491; 87591; 93005

== ENCOUNTER → 2020-09-23 | Outpatient (CLI) | payer OTHER ==
--- NOTE | 2020-09-23 12:17 | MR ---
MRI CERVICAL SPINE: CLINICAL HISTORY: Neck pain into both hands for 8 months. TECHNIQUE: Multiplanar, multisequence imaging of the cervical spine is performed without IV contrast. COMPARISON: None. FINDINGS: Sagittal images of the cervical spine show the craniocervical junction to appear within nor mal limits. The cervical and upper thoracic spinal cord is normal in caliber and signal. Slight grad e 1 retrolisthesis C3 on C4. The vertebral body heights are normal. Mild to moderate multilevel ante rior spurring. Mild to moderate disc space narrowing C6-C7 level. The bone marrow signal intensity is within normal limits. Axial images at C2-C3 level show uncovertebral facet degenerative changes causing asymmetric mild lef t-sided neural foraminal narrowing. Axial images at C3-C4 level show spondylolisthesis with broad-based central disc protrusion effacing the anterior thecal sac along with uncovertebral facet degenerative changes bilaterally there is mode rate right greater than left bilateral neural foraminal narrowing noted. Axial images at C4-C5 level show focal right foraminal disc protrusion causing moderate right-sided n eural foraminal narrowing. Axial images at C5-C6 level showed broad based posterior disc protrusion effacing anterior thecal sac and causing moderate to advanced bilateral neural foraminal narrowing also contributed bilateral unc overtebral facet degenerative changes. Axial images at C6-C7 level showed broad based posterior disc protrusion effacing the anterior thecal sac and causing moderate to advanced bilateral neural foraminal narrowing. Axial images at C7-T1 level appear within normal limits. IMPRESSION: Straightening of cervical spine with multilevel degenerative changes greatest at C3-C4, C 5-C6, and C6-C7 levels as detailed above.
== END | disposition home or self-care (01) ==
LOC: RADMRIMAIN 10:54
PROVIDERS: ATTEND Psychiatry & Neurology Neurology
DX: M50.223 Other cervical disc displacement at C6-C7 level (principal); M99.71 Connective tissue and disc stenosis of intervertebral foramina of cervical region; M43.12 Spondylolisthesis, cervical region; M47.812 Spondylosis without myelopathy or radiculopathy, cervical region
CPT/HCPCS: 72141

== ENCOUNTER 2022-09-01 12:23 | Inpatient (IN) | payer OTHER ==
[2022-09-01] MEDS ORDERED: NITROGLYCERIN SL TABS 0.4 MG TAB SUBLINGUAL STA ×2 (12:33)
[2022-09-01] MEDS ORDERED: ASPIRIN 81 MG PO STA (12:33)
[2022-09-01] MEDS ORDERED: LORazepam 2 MG/ML INJ IV STA (12:34)
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
[2022-09-01] MEDS: NITROGLYCERIN SL TABS 0.4 MG TAB SUBLINGUAL STA ×2 (13:06→15:49)
--- NOTE | 2022-09-01 13:24 | XR ---
EXAMINATION TYPE: XR chest 2V DATE OF EXAM: 09/01/2022 COMPARISON: 01/25/2011 INDICATION: Chest pain TECHNIQUE: Frontal and lateral views of the chest are obtained. FINDINGS: The heart size is normal. The pulmonary vasculature is normal. There is some fullness in the left infrahilar region. Correlate for pneumonia. Underlying lymphadenopathy may be present. Follow-up is recommended. The lungs are otherwise clear. IMPRESSION: 1. Fullness within the left infrahilar region on the frontal projection. Differential diagnosis inclu tamika pneumonia, lymphadenopathy, summation density with pulmonary vasculature. Continued follow-up is recommended.
[2022-09-01 13:29] LABS: Basophils % (A) 0 %; Eosinophils % (A) 1 %; HCT 47.4 % (39.0-53.0); HGB 14.8 gm/dL (13.0-17.5); Lymphocytes # (A) 1.4 k/uL (1.0-4.8); Lymphocytes % (A) 27 %; MCH 28.8 pg (25.0-35.0); MCHC 31.2 g/dL (31.0-37.0); MCV 92.3 fL (80.0-100.0); Mean Platelet Volume 7.6; Monocytes # (A) 0.4 k/uL (0-1.0); Monocytes % (A) 7 %; Neutrophils # (A) 3.4 k/uL (1.3-7.7); Neutrophils % (A) 64 %; Platelet Count 238 k/uL (150-450); RBC 5.13 m/uL (4.30-5.90); RDW 14.5 % (11.5-15.5); WBC 5.3 k/uL (3.8-10.6)
[2022-09-01 13:55] LABS: Prothrombin Time 10.2 sec (9.0-12.0)
[2022-09-01 14:00] LABS: ALT 40 U/L (4-49); African American GFR (CKD) >90 (>60 ml/min/1.73 sqM); Albumin 4.2 g/dL (3.5-5.0); Amylase 50 U/L (30-110); Anion Gap 14 mmol/L; Blood Urea Nitrogen 8 mg/dL (9-20); Calcium 8.9 mg/dL (8.4-10.2); Carbon Dioxide 22 mmol/L (22-30); Chloride 98 mmol/L (98-107); Lipase 226 U/L (23-300); Non-African American GFR(CKD) >90 (>60 ml/min/1.73 sqM); Sodium 134 mmol/L (137-145); Total Bilirubin 0.6 mg/dL (0.2-1.3); Total Protein 7.8 g/dL (6.3-8.2)
[2022-09-01 14:21] LABS: Glucose 630 mg/dL (74-99)
[2022-09-01 14:22] LABS: AST 29 U/L (17-59); Alkaline Phosphatase 148 U/L (38-126); Magnesium 1.8 mg/dL (1.6-2.3); Potassium 4.9 mmol/L (3.5-5.1)
[2022-09-01 14:23] LABS: Partial Thromboplastin Time 20.8 sec (22.0-30.0)
[2022-09-01] MEDS ORDERED: INSULIN REGULAR 100 UNIT/ML VIAL (IV) IV ONE (14:28)
--- NOTE | 2022-09-01 14:57 | CT ---
EXAMINATION TYPE: CT angio chest DATE OF EXAM: 09/01/2022 COMPARISON: 06/24/2019 HISTORY: elevated d-dimer CT DLP: 370.2 mGycm Automated exposure control for dose reduction was used. CONTRAST: Performed with IV Contrast, patient injected with 80cc mL of Isovue 370. Images obtained from the thoracic inlet to the diaphragm with the IV contrast. There are Three-D post processed images. The lungs are clear of consolidation. There is some mild reticular infiltrate at the right posterior lung base adjacent to the diaphragm. This is consistent with some scarring and atelectasis. No pleura l effusion. Heart size is normal. No pericardial effusion. There is large filling defect in the right pulmonary artery extending almost to the bifurcation of th e pulmonary artery. Left pulmonary artery and the branches appear normal. There is no mediastinal adenopathy. Thoracic aorta is intact. No aneurysm or dissection. The thoracic vertebra have normal alignment. Posterior elements are intact. No compression fracture. IMPRESSION: Large embolism involving entire right pulmonary artery and the branches. No evidence of right heart strain. Heart size is normal. There is a small reticular infiltrate right lung base without change compared to the old exam and the refore benign. Exam was discussed with emergency room attending staff at 3:00 PM.
[2022-09-01] MEDS ORDERED: DEXTROSE 50% SYRINGE 50 ML IVP PRN ×2 (15:04)
[2022-09-01] MEDS ORDERED: HEPARIN SODIUM 1,000 UN/ML (10ML VL) IV PRN (15:06)
[2022-09-01] MEDS ORDERED: HEPARIN SODIUM 1,000 UN/ML (10ML VL) IV ONE (15:06)
[2022-09-01] MEDS ORDERED: NALOXONE 0.4 MG/ML 1 ML VIAL IV PRN (15:11)
[2022-09-01] MEDS: HEPARIN SOD,PORK IN 0.45% NACL 25,000 UNIT in 0.45% NACL 1 250ML.BAG IV SCH (16:39)
[2022-09-01] MEDS: SODIUM CHLORIDE 0.9% 1,000 ML IV SCH (16:41)
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
[2022-09-01 17:16] LABS: Glucose,Whole Blood 301 mg/dL (70-110)
[2022-09-01] MEDS: INSULIN ASPART (NovoLOG) 100 UNIT/ML VIAL SQ SCH ×2 (17:21→22:55)
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
[2022-09-01 20:46] LABS: Glucose,Whole Blood 180 mg/dL (70-110)
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
[2022-09-02 06:55] LABS: Basophils % (A) 1 %; Eosinophils # (A) 0.1 k/uL (0-0.7); Eosinophils % (A) 1 %; HCT 42.1 % (39.0-53.0); HGB 13.8 gm/dL (13.0-17.5); Lymphocytes # (A) 2.1 k/uL (1.0-4.8); Lymphocytes % (A) 34 %; MCH 28.5 pg (25.0-35.0); MCHC 32.7 g/dL (31.0-37.0); MCV 87.1 fL (80.0-100.0); Mean Platelet Volume 7.1; Monocytes # (A) 0.6 k/uL (0-1.0); Monocytes % (A) 9 %; Neutrophils # (A) 3.3 k/uL (1.3-7.7); Neutrophils % (A) 53 %; Platelet Count 207 k/uL (150-450); RBC 4.83 m/uL (4.30-5.90); RDW 14.5 % (11.5-15.5); WBC 6.2 k/uL (3.8-10.6)
[2022-09-02] MEDS: HEPARIN SOD,PORK IN 0.45% NACL 25,000 UNIT in 0.45% NACL 1 250ML.BAG IV SCH (07:39)
[2022-09-02 07:44] LABS: Glucose,Whole Blood 283 mg/dL (70-110)
[2022-09-02] MEDS: INSULIN ASPART (NovoLOG) 100 UNIT/ML VIAL SQ SCH ×4 (07:45→20:49)
[2022-09-02 09:25] LABS: Glucose,Whole Blood 344 mg/dL (70-110)
[2022-09-02] MEDS: INSULIN DETEMIR (LEVEMIR) 100 UNIT/ML SYR SQ SCH (09:28)
--- NOTE | 2022-09-02 09:32 | CA ---
Transthoracic Echo Report Name: Hema Umana Age: 61 Gender: M : 1960 Exam Date: 09/02/2022 07:05 Exam Location: [facility] Ht (in): 70 Wt (lb): 194 Ordering Physician: Ryley Rosales Attending/Referring Phys: Documentation Analyst Jinny Sanders RDCS Procedure CPT: Indications: Evaluate right heart strain Cardiac Hx: Technical Quality: Good Contrast 1: Total Dose (mL): Contrast 2: Total Dose (mL): MEASUREMENTS (Male / Female) Normal Values 2D ECHO LV Diastolic Diameter PLAX 3.6 cm 4.2 - 5.9 / 3.9 - 5.3 cm LV Systolic Diameter PLAX 2.3 cm IVS Diastolic Thickness 1.1 cm 0.6 - 1.0 / 0.6 - 0.9 cm LVPW Diastolic Thickness 1.1 cm 0.6 - 1.0 / 0.6 - 0.9 cm LV Relative Wall Thickness 0.6 RV Internal Dim ED PLAX 3.9 cm LA Systolic Diameter LX 3.3 cm 3.0 - 4.0 / 2.7 - 3.8 cm LV Diastolic Volume MOD BP 53.6 cm??? 67 - 155 / 56 - 104 cm??? LV Systolic Volume MOD BP 28.2 cm??? 22 - 58 / 19 - 49 cm??? LV Ejection Fraction MOD BP 47.3 % >= 55 % LV Diastolic Volume MOD 4C 52.2 cm??? LV Systolic Volume MOD 4C 29.7 cm??? LV Ejection Fraction MOD 4C 43.1 % LV Diastolic Length 4C 7.7 cm LV Systolic Length 4C 7.3 cm LV Diastolic Volume MOD 2C 51.8 cm??? LV Systolic Volume MOD 2C 26.7 cm??? LV Ejection Fraction MOD 2C 48.5 % LV Diastolic Length 2C 8.3 cm LV Systolic Length 2C 7.5 cm LA Volume 37.1 cm??? 18 - 58 / 22 - 52 cm??? M-MODE Aortic Root Diameter MM 3.6 cm MV E Point Septal Separation 0.3 cm AV Cusp Separation MM 2.5 cm DOPPLER AV Peak Velocity 110.3 cm/s AV Peak Gradient 4.9 mmHg MV Area PHT 3.0 cm??? Mitral E Point Velocity 60.7 cm/s Mitral A Point Velocity 81.1 cm/s Mitral E to A Ratio 0.7 MV Deceleration Time 249.9 ms MV E' Velocity 7.8 cm/s Mitral E to MV E' Ratio 7.8 FINDINGS Left Ventricle Left ventricular ejection fraction is estimated at 50-55 %. Small left ventricular cavity. Borderline left ventricular hypertrophy. Right Ventricle Borderline right ventricular dilatation. No TR to estimate RVSP. Right Atrium Normal right atrial size. Left Atrium Normal left atrial size. Mitral Valve Structurally normal mitral valve. No mitral stenosis, regurgitation or prolapse. Aortic Valve Trileaflet aortic valve. No aortic valve stenosis or regurgitation. Tricuspid Valve Structurally normal tricuspid valve. Trace tricuspid regurgitation. Pulmonic Valve Structurally normal pulmonic valve. No pulmonic regurgitation. Pericardium Normal pericardium. No pericardial effusion. Aorta Normal size aortic root and proximal ascending aorta. CONCLUSIONS Left ventricular ejection fraction 50-55% Borderline right ventricular dilation Normal RVSP No pericardial effusion Previewed by: Dr. Napoleon Bañuelos DO (Electronically Signed) Final Date: 02 September 2022 09:31
--- NOTE | 2022-09-02 10:41 | P.PN ---
Subjective Progress Note Date: 09/02/22 Patient has no new complaints today. Echocardiogram read is pending at the time of my evaluation. Cardiology considering doing mechanical thrombectomy. Gen: awake, alert HEENT: normocephalic, atraumatic, good hearing acuity, moist mucous membranes Resp: good air exchange, breathing comfortably with no accessory muscle use CVS: good distal perfusion x 4, GI: soft, NTTP, ND : no SPT, no CVAT, mccracken catheter not present MSK: no pitting edema, no clubbing Neuro: non-focal, moving all extremities Psych: cooperative, euthymic mood Hospital course: 61-year-old man with medical history of hypertension, hyperlipidemia, diabetes, bipolar disorder, recurrent DVT/PE with medication noncompliance presented with chest pain. In the emergency room, patient was afebrile, 168/117, heart rate 112, 98% on room air. CBC was unremarkable. Chemistries showed hyponatremia to 138, elevation of glucose to 630, otherwise unremarkable. Liver function tests showed elevation of alkaline phosphatase to 148, otherwise unremarkable. Initial troponin was less than 0.012, repeat troponin drawn 3 hours later was less than 0.012. BNP was 58. Lipase was 226, amylase is 50. Coags were unremarkable. D-dimer was elevated at 2.87. Chest x-ray showed clear parenchyma on the right with subtle infiltrate in the left medial lung field. EKG showed sinus tachycardia with left axis deviation, no evidence of active ischemia. CT angiography showed large pulmonary embolism involving the entire right pulmonary artery and the branches with small reticular infiltrate in the right lung base without change compared to the old exam, no evidence of right heart strain. Case was discussed with the emergency room physician, decision was made to admit the patient to inpatient status for pulmonary embolism. Assessment: Acute submassive pulmonary embolism, due to medication noncompliance Hyperglycemia with diabetes mellitus type 2 Hypertension Hyperlipidemia Bipolar disorder Plan: Today, patient is afebrile, 124/97, heart rate 94, 97% on room air. CBC today is unremarkable. PTT ranges from 20-89.2, insight are good range Echocardiogram demonstrates preserved ejection fraction of 50-55% with borderline right ventricular dilation Order CBC, basic metabolic panel, magnesium for tomorrow Continue Heparin drip high-intensity, monitor PTT for toxicity Low-dose sliding scale insulin Patient is DO NOT RESUSCITATE/DO NOT INTUBATE Patient's sister Vinicio is patient's designated decision maker Objective - Vital Signs Vital signs: Vital Signs Temp 98.1 F 09/02/22 07:32 Pulse 103 H 09/02/22 09:27 Resp 18 09/02/22 09:27 BP 159/93 09/02/22 09:27 Pulse Ox 98 09/02/22 09:27 FiO2 Intake & Output 09/01/22 09/02/22 09/02/22 18:59 06:59 18:59 Intake Total 237.585 Balance 237.585 Weight 87.997 kg Intake: Intake, IV Titration 237.585 Amount Heparin Sod,Pork in 0.45% 237.585 NaCl 25,000 unit In 0.45 % NaCl 1 250ml.bag @ 18 UNITS/KG/HR 15.839 mls/hr IV .[id number] [facility] Rx#: [id number] - Labs CBC & Chem 7: 09/02/22 06:14 09/01/22 12:48 Labs: Abnormal Lab Results - Last 24 Hours (Table) 09/01/22 09/01/22 09/01/22 Range/Units 12:48 12:48 16:16 APTT 20.8 L (22.0-30.0) sec D-Dimer 2.87 H (<0.60) mg/L FEU Sodium 134 L (137-145) mmol/L BUN 8 L (9-20) mg/dL Glucose 630 H* (74-99) mg/dL POC Glucose (mg/dL) (70-110) mg/dL Hemoglobin A1c 13.6 H (0.0-6.0) % Alkaline Phosphatase 148 H (38-126) U/L 09/01/22 09/01/22 09/01/22 Range/Units 17:14 20:44 21:08 APTT 57.6 H (22.0-30.0) sec D-Dimer (<0.60) mg/L FEU Sodium (137-145) mmol/L BUN (9-20) mg/dL Glucose (74-99) mg/dL POC Glucose (mg/dL) 301 H 180 H (70-110) mg/dL Hemoglobin A1c (0.0-6.0) % Alkaline Phosphatase (38-126) U/L 09/02/22 09/02/22 09/02/22 Range/Units 06:14 07:43 09:21 APTT 89.2 H (22.0-30.0) sec D-Dimer (<0.60) mg/L FEU Sodium (137-145) mmol/L BUN (9-20) mg/dL Glucose (74-99) mg/dL POC Glucose (mg/dL) 283 H 344 H (70-110) mg/dL Hemoglobin A1c (0.0-6.0) % Alkaline Phosphatase (38-126) U/L
[2022-09-02 12:09] LABS: Glucose,Whole Blood 328 mg/dL (70-110)
--- NOTE | 2022-09-02 14:35 | P.PN ---
Subjective Progress Note Date: 09/02/22 The patient is a pleasant 60-year-old gentleman with a past medical history significant for diabetes as well as history of recurrent DVT the patient supposed to be on oral anticoagulation but he stopped taking the medications because he couldn't afford his. He presented to the emergency department compl aining of chest discomfort. 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 It was associated with shortness of breath as well as heart racing. No presyncope or syncope. He decided to come to the emergency department for further evaluation. He underwent workup including EKG showing sinus rhythm with sinus tachycardia and diffuse nonspecific ST and T wave abnormalities. The first set of troponin came in to be unremarkable. Subsequently he underwent d-dimer and that came in to be abnormal and then he underwent CTA of the chest which showed large saddle pulmonary embolism involving the right pulmonary artery proximally. As a matter of fact a filling defect appeared to be huge when the computed tomography scan was reviewed. Beside that the computed tomography scan review with enlarged right ventricle. The rest of the blood work overall came in to be unremarkable. The patient was not hypoxic when he presented. He still slightly tachycardic was a resting heart rate 100 beats per minutes. No history of pulmonary embolism but he does have history of deep venous thrombosis which is recurrent. The patient recently did not have any history of surgery. No history of long distance traveling. No history of cancer. The examination is remarkable for regular rhythm with clear breathing sounds bilaterally and no lower extremities edema noted. 09/02 Patient is seen today in the emergency center waiting for a bed on the cardiac stepdown unit. Patient remains on heparin drip. Patient is off oxygen and denies shortness of breath. He states he feels lot better today. He has been afebrile, heart rate 94, blood pressure 124/97, pulse ox 97% on room air. Troponins came back negative on 3 draws. Physical Examination Gen: This is a 61-year-old He is resting on a stretcher and appears to be comfortable and in no acute distress. No acute respiratory distress noted. HEENT: Head is atraumatic, normocephalic. Pupils equal, round. Sclerae is anicteric. NECK: Supple. No JVD. No lymphadenopathy. No thyromegaly. LUNGS: Clear to auscultation. No wheezes or rhonchi. No intercostal retractions. HEART: Regular rate and rhythm. No murmur. ABDOMEN: Soft. Bowel sounds are present. No masses. No tenderness. EXTREMITIES: No pedal edema. No calf tenderness. NEUROLOGICAL: Patient is awake, alert and oriented x3. Cranial nerves 2 through 12 are grossly intact. Assessment Large saddle pulmonary embolism involving the proximal right pulmonary artery/submassive pulmonary embolism History of recurrent DVT the patient stopped taking anticoagulation Diabetes Plan Continue IV heparin for now The CTA was reviewed and showed enlargement in the right ventricle. The first set of troponin is unremarkable. NT proBNP is normal. Obtain an echocardiogram with Doppler for further risk stratification and for accurate assessment of the RV dimension and systolic function as well as pulmonary systolic pressure Follow-up with the patient Nurse practitioner note has been reviewed, I agree with the documented findings and plan of care. Patient was seen and examined. Objective - Vital Signs Vital signs: Vital Signs Temp 98.1 F 09/02/22 07:32 Pulse 93 09/02/22 07:34 Resp 18 09/02/22 07:34 BP 124/97 09/02/22 07:32 Pulse Ox 97 09/02/22 07:32 FiO2 Intake & Output 09/01/22 09/02/22 09/02/22 18:59 06:59 18:59 Weight 87.997 kg - Labs CBC & Chem 7: 09/02/22 06:14 09/01/22 12:48 Labs: Abnormal Lab Results - Last 24 Hours (Table) 09/01/22 09/01/22 09/01/22 Range/Units 12:48 12:48 16:16 APTT 20.8 L (22.0-30.0) sec D-Dimer 2.87 H (<0.60) mg/L FEU Sodium 134 L (137-145) mmol/L BUN 8 L (9-20) mg/dL Glucose 630 H* (74-99) mg/dL POC Glucose (mg/dL) (70-110) mg/dL Hemoglobin A1c 13.6 H (0.0-6.0) % Alkaline Phosphatase 148 H (38-126) U/L 09/01/22 09/01/2209/01/23 Range/Units 17:14 20:44 21:08 APTT 57.6 H (22.0-30.0) sec D-Dimer (<0.60) mg/L FEU Sodium (137-145) mmol/L BUN (9-20) mg/dL Glucose (74-99) mg/dL POC Glucose (mg/dL) 301 H 180 H (70-110) mg/dL Hemoglobin A1c (0.0-6.0) % Alkaline Phosphatase (38-126) U/L 09/02/22 Range/Units 06:14 APTT 89.2 H (22.0-30.0) sec D-Dimer (<0.60) mg/L FEU Sodium (137-145) mmol/L BUN (9-20) mg/dL Glucose (74-99) mg/dL POC Glucose (mg/dL) (70-110) mg/dL Hemoglobin A1c (0.0-6.0) % Alkaline Phosphatase (38-126) U/L
[2022-09-02 16:29] LABS: Glucose,Whole Blood 228 mg/dL (70-110)
[2022-09-02] MEDS: SODIUM CHLORIDE 0.9% 1,000 ML IV SCH (17:12)
[2022-09-02 20:26] LABS: Glucose,Whole Blood 270 mg/dL (70-110)
[2022-09-03] MEDS: HEPARIN SOD,PORK IN 0.45% NACL 25,000 UNIT in 0.45% NACL 1 250ML.BAG IV SCH (00:50)
[2022-09-03 06:23] LABS: Glucose,Whole Blood 196 mg/dL (70-110)
[2022-09-03] MEDS: INSULIN ASPART (NovoLOG) 100 UNIT/ML VIAL SQ SCH ×3 (06:35→18:04)
[2022-09-03] MEDS: INSULIN DETEMIR (LEVEMIR) 100 UNIT/ML SYR SQ SCH (06:35)
[2022-09-03 07:14] LABS: African American GFR (CKD) >90 (>60 ml/min/1.73 sqM); Anion Gap 4 mmol/L; Blood Urea Nitrogen 7 mg/dL (9-20); Calcium 8.2 mg/dL (8.4-10.2); Carbon Dioxide 27 mmol/L (22-30); Chloride 104 mmol/L (98-107); Glucose 200 mg/dL (74-99); Magnesium 1.6 mg/dL (1.6-2.3); Non-African American GFR(CKD) >90 (>60 ml/min/1.73 sqM); Sodium 135 mmol/L (137-145)
[2022-09-03 07:22] LABS: Basophils % (A) 1 %; Eosinophils # (A) 0.1 k/uL (0-0.7); Eosinophils % (A) 1 %; HCT 41.7 % (39.0-53.0); Lymphocytes # (A) 2.1 k/uL (1.0-4.8); Lymphocytes % (A) 35 %; MCH 29.4 pg (25.0-35.0); MCHC 33.5 g/dL (31.0-37.0); MCV 87.8 fL (80.0-100.0); Mean Platelet Volume 7.4; Monocytes # (A) 0.7 k/uL (0-1.0); Monocytes % (A) 11 %; Neutrophils # (A) 2.9 k/uL (1.3-7.7); Neutrophils % (A) 48 %; Platelet Count 214 k/uL (150-450); RBC 4.75 m/uL (4.30-5.90); RDW 14.8 % (11.5-15.5)
[2022-09-03] MEDS: MAGNESIUM SULFATE-D5W PMX 1 GM in DEXTROSE/WATER 1 100ML.BAG IVPB SCH ×2 (09:04→11:18)
--- NOTE | 2022-09-03 09:57 | P.PN ---
Subjective Progress Note Date: 09/03/22 I'm seeing this patient in new consultation today 09/02/2022 for a pulmonary embolus. This is a pleasant 61-year-old -[place] male with past medical history of previous bilateral lower extremity DVT and pulmonary embolism first seen back in June 2019, he is noncompliant with his prescribed Eliquis due to financial reasons. A recent lower extremity venous doppler done on 07/20/2022 showed bilateral lower extremity DVTs extending from the common femoral vein to proximal calf veins. Patient also has a history of hypertension, hyperlipidemia, diabetes mellitus, and bipolar disorder. No familial history of clotting disorders or prolonged travel. The patient's presenting symptom was a sub sternal, nonradiating, chest pain that started yesterday. This was associated with shortness of breath and heart palpitations. At that time, the pain was rated 8 out of 10. He does report a similar episode when he was previously diagnosed with a pulmonary embolism. He denies any fevers, chills, cough, lightheadedness, syncope, nausea or vomiting, abdominal pain. On arrival, chest x-ray showed fullness within the left from infrahilar region which could correlate for pneumonia or underlying lymphadenopathy. Follow-up was recommended. A follow-up chest CTA revealed a large right pulmonary embolism resulting in filling defects of the right pulmonary artery extending almost to the bifurcation. The left pulmonary artery and branches appeared normal. ECG on arrival showed sinus tachycardia rate of 110 bpm and no obvious ischemic changes. Troponins were negative 2. NT BNP was low at 58. Most recent CBC was unremarkable. D-dimer was elevated at 2.9. Sodium 134, potassium 4.9, chloride 98, serum CO2 22, BUN 8, creatinine 0.66, glucose 630. Glucoses has since come down to 180 mg/dL. The patient is currently in ER room 23. He is currently lying in bed, on room air, in no acute distress. He is oxygenating at 93% on room air. The patient is currently on a high intensity heparin infusion per protocol. Most recent APTT is therapeutic at 57.6. Cardiology was also consulted to evaluate this patient, and there is a plan for possible EKOS therapy. No echocardiogram yet. Vital signs are stable. On today's evaluation of 09/03/2022, the patient is doing well. He is on room air oxygen. No chest pain. No shortness of breath. No pleurisy or hemoptysis. He remains on IV heparin. No strain pattern on his CAT scan ordered echocardiogram. Troponins have been negative. The patient is in need for anticoagulation. He is currently on IV heparin. Hemodynamically stable. No sinus tachycardia.PTT is therapeutic at 88.9. Hemoglobin stable at 14.0. BUN is at 7 with a creatinine of 0.6. Objective - Vital Signs Vital signs: Vital Signs Temp 98.9 F 09/03/22 04:00 Pulse 103 H 09/03/22 04:00 Resp 14 09/03/22 04:00 BP 127/81 09/03/22 04:00 Pulse Ox 97 09/03/22 08:59 FiO2 Intake & Output 09/02/22 09/03/22 09/03/22 18:59 06:59 18:59 Intake Total 355.585 241.707 293.813 Output Total 800 Balance 355.585 -558.293 293.813 Weight 87.997 kg 85.2 kg Intake: Intake, IV Titration 237.585 241.707 113.813 Amount Heparin Sod,Pork in 0.45% 237.585 241.707 113.813 NaCl 25,000 unit In 0.45 % NaCl 1 250ml.bag @ 18 UNITS/KG/HR 15.839 mls/hr IV .[id number] REPLACED BY [facility] Rx#: [id number] Oral 118 180 Output: Gastric Drainage 0 Urine 800 Stool 0 Urine/Stool Mix 0 Emesis 0 Oral Regurgitation 0 Other: Voiding Method Toilet Urinal # Voids 0 - Exam GENERAL EXAM: Alert, 61-year-old -[place] male, comfortable in no apparent distress. HEAD: Normocephalic and atraumatic EYES: Normal reaction of pupils, equal size. NOSE: Clear with pink turbinates. THROAT: No erythema or exudates. NECK: No masses, no JVD. CHEST: No chest wall deformity. LUNGS: Equal air entry with no crackles, wheeze, rhonchi or dullness. On room air No conversational dyspnea or accessory muscle use.. CVS: S1 and S2 normal with no audible murmur, regular rhythm. No extra heart sounds ABDOMEN: No hepatosplenomegaly, active bowel sounds, no guarding or rigidity. SPINE: No scoliosis or deformity SKIN: No rashes CENTRAL NERVOUS SYSTEM: No focal deficits, tone is normal in all 4 extremities. EXTREMITIES: There is no peripheral edema, clubbing, or cyanosis. Peripheral pulses are intact. - Labs CBC & Chem 7: 09/03/22 05:51 09/03/22 05:51 Labs: Abnormal Lab Results - Last 24 Hours (Table) 09/02/22 09/02/22 09/02/22 Range/Units 12:06 15:00 16:27 APTT 72.2 H (22.0-30.0) sec Sodium (137-145) mmol/L BUN (9-20) mg/dL Creatinine (0.66-1.25) mg/dL Glucose (74-99) mg/dL POC Glucose (mg/dL) 328 H 228 H (70-110) mg/dL Calcium (8.4-10.2) mg/dL 09/02/22 09/03/22 09/03/22 Range/Units 20:23 05:51 05:51 APTT 88.9 H (22.0-30.0) sec Sodium 135 L (137-145) mmol/L BUN 7 L (9-20) mg/dL Creatinine 0.63 L (0.66-1.25) mg/dL Glucose 200 H (74-99) mg/dL POC Glucose (mg/dL) 270 H (70-110) mg/dL Calcium 8.2 L (8.4-10.2) mg/dL 09/03/22 Range/Units 06:22 APTT (22.0-30.0) sec Sodium (137-145) mmol/L BUN (9-20) mg/dL Creatinine (0.66-1.25) mg/dL Glucose (74-99) mg/dL POC Glucose (mg/dL) 196 H (70-110) mg/dL Calcium (8.4-10.2) mg/dL Assessment and Plan Assessment: There is a large right pulmonary embolism of the entire right pulmonary artery and branches, which was demonstrated on chest CTA. Patient does have history of bilateral lower extremity DVTs and a right-sided pulmonary embolism, in which he is noncompliant with his Eliquis due to financial reasons. He is currently stable on room air. High-intensity heparin infusion is infusing per protocol Hypertension Hyperlipidemia Diabetes mellitus Bipolar disorder Nonsmoker Plan: This is a case of acute pulmonary embolism. The patient has recurrent VTE and he has not been compliant to anticoagulants. Despite the large clot burden, the patient does not have any elevation in troponins, no evidence of any significant pulmonary hypertension or RV dysfunction or strain pattern based on echo or CAT scan criteria. The patient on room air oxygen. Pulse ox is 97%. No significant tachycardia. Continue anticoagulants. Not really a candidate for EKOS or clot extraction should be subjected to anticoagulants. The patient remains on IV heparin. We'll discuss with case management as far as his coverage in the choice of anticoagulants. The patient needs to be on oral anticoagulation, likely a lifetime oral anticoagulants as the patient has previous history of bilateral DVTs and currently has a pulmonary embolism with a large clot burden. Fortunately, he has remained hemodynamically stable.
--- NOTE | 2022-09-03 11:08 | P.PN ---
Subjective Progress Note Date: 09/03/22 The patient is a pleasant 60-year-old gentleman with a past medical history significant for diabetes as well as history of recurrent DVT the patient supposed to be on oral anticoagulation but he stopped taking the medications because he couldn't afford his. He presented to the emergency department compl aining of chest discomfort. 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 It was associated with shortness of breath as well as heart racing. No presyncope or syncope. He decided to come to the emergency department for further evaluation. He underwent workup including EKG showing sinus rhythm with sinus tachycardia and diffuse nonspecific ST and T wave abnormalities. The first set of troponin came in to be unremarkable. Subsequently he underwent d-dimer and that came in to be abnormal and then he underwent CTA of the chest which showed large saddle pulmonary embolism involving the right pulmonary artery proximally. As a matter of fact a filling defect appeared to be huge when the computed tomography scan was reviewed. Beside that the computed tomography scan review with enlarged right ventricle. The rest of the blood work overall came in to be unremarkable. The patient was not hypoxic when he presented. He still slightly tachycardic was a resting heart rate 100 beats per minutes. No history of pulmonary embolism but he does have history of deep venous thrombosis which is recurrent. The patient recently did not have any history of surgery. No history of long distance traveling. No history of cancer. The examination is remarkable for regular rhythm with clear breathing sounds bilaterally and no lower extremities edema noted. 09/02 Patient is seen today in the emergency center waiting for a bed on the cardiac stepdown unit. Patient remains on heparin drip. Patient is off oxygen and denies shortness of breath. He states he feels lot better today. He has been afebrile, heart rate 94, blood pressure 124/97, pulse ox 97% on room air. Troponins came back negative on 3 draws. 09/03 Patient is seen today in follow-up. He states that he is better from yesterday. He denies having any shortness of breath, no chest pain, no lightheadedness or dizziness. He is currently on a heparin drip for anticoagulation with plan for eliquis at discharge. Echocardiogram reveals EF of 50-55%, borderline right ventricular dilation, normal RVSP. No pericardial effusion Physical Examination Gen: This is a 61-year-old He is resting in bed and appears to be comfortable and in no acute distress. No acute respiratory distress noted. HEENT: Head is atraumatic, normocephalic. Pupils equal, round. Sclerae is anicteric. NECK: Supple. No JVD. No lymphadenopathy. No thyromegaly. LUNGS: Clear to auscultation. No wheezes or rhonchi. No intercostal retractions. HEART: Regular rate and rhythm. No murmur. EXTREMITIES: No pedal edema. No calf tenderness. NEUROLOGICAL: Patient is awake, alert and oriented x3. Assessment Large saddle pulmonary embolism involving the proximal right pulmonary artery/submassive pulmonary embolism History of recurrent DVT the patient stopped taking anticoagulation Diabetes Plan Continue IV heparin and transition to eliquis Cardiology will sign off and follow on an as-needed basis. No plan for mechanical thrombolysis. Patient may follow-up in the office with Dr. Lazaro. Nurse practitioner note has been reviewed, I agree with the documented findings and plan of care. Patient was seen and examined. Objective - Vital Signs Vital signs: Vital Signs Temp 98.9 F 09/03/22 04:00 Pulse 103 H 09/03/22 04:00 Resp 14 09/03/22 04:00 BP 127/81 09/03/22 04:00 Pulse Ox 98 09/03/22 04:00 FiO2 Intake & Output 09/02/22 09/03/22 09/03/22 18:59 06:59 18:59 Intake Total 355.585 241.707 180 Output Total 800 Balance 355.585 -558.293 180 Weight 87.997 kg 85.2 kg Intake: Intake, IV Titration 237.585 241.707 Amount Heparin Sod,Pork in 0.45% 237.585 241.707 NaCl 25,000 unit In 0.45 % NaCl 1 250ml.bag @ 18 UNITS/KG/HR 15.839 mls/hr IV .[id number] [facility] Rx#: [id number] Oral 118 180 Output: Gastric Drainage 0 Urine 800 Stool 0 Urine/Stool Mix 0 Emesis 0 Oral Regurgitation 0 Other: Voiding Method Toilet Urinal # Voids 0 - Labs CBC & Chem 7: 09/03/22 05:51 09/03/22 05:51 Labs: Abnormal Lab Results - Last 24 Hours (Table) 09/02/22 09/02/22 09/02/22 Range/Units 09:21 12:06 15:00 APTT 72.2 H (22.0-30.0) sec Sodium (137-145) mmol/L BUN (9-20) mg/dL Creatinine (0.66-1.25) mg/dL Glucose (74-99) mg/dL POC Glucose (mg/dL) 344 H 328 H (70-110) mg/dL Calcium (8.4-10.2) mg/dL 09/02/22 09/02/22 09/03/22 Range/Units 16:27 20:23 05:51 APTT (22.0-30.0) sec Sodium 135 L (137-145) mmol/L BUN 7 L (9-20) mg/dL Creatinine 0.63 L (0.66-1.25) mg/dL Glucose 200 H (74-99) mg/dL POC Glucose (mg/dL) 228 H 270 H (70-110) mg/dL Calcium 8.2 L (8.4-10.2) mg/dL 09/03/22 09/03/22 Range/Units 05:51 06:22 APTT 88.9 H (22.0-30.0) sec Sodium (137-145) mmol/L BUN (9-20) mg/dL Creatinine (0.66-1.25) mg/dL Glucose (74-99) mg/dL POC Glucose (mg/dL) 196 H (70-110) mg/dL Calcium (8.4-10.2) mg/dL
[2022-09-03 11:49] LABS: Glucose,Whole Blood 189 mg/dL (70-110)
[2022-09-03 11:56] VITALS: RESP 16; TEMP 98.3
[2022-09-03] MEDS ORDERED: APIXABAN 5 MG TAB PO SCH (13:15)
[2022-09-03 13:33] VITALS: BMI 26.9
[2022-09-03 14:36] VITALS: BP 135/93; PULSE 92
--- NOTE | 2022-09-03 16:47 | P.DS ---
Providers Date of admission: 09/01/22 15:11 Expected date of discharge: 09/03/22 Attending physician: Santi Prado MD Consults: 09/01/22 15:11 Consult Physician Urgent Consulting Provider: Roshan Lazaro Consult Reason/Comments: pe Do you want consulting provider notified?: Already Contacted Consult Physician Urgent Consulting Provider: Ketan Kimble Consult Reason/Comments: pe Do you want consulting provider notified?: Already Contacted Primary care physician: Stated None Hospital Course: Discharge Diagnosis: Acute submassive pulmonary embolism Diabetes mellitus type 2 with hyperglycemia and A1c 13 Hypertension Dyslipidemia Bipolar disorder Social stressor: Homeless, had been nonadherent with medications due to cost in the past but current co-pay is 0. Hospital Course: Patient is a 51-year-old gentleman with hypertension, dyslipidemia, diabetes, bipolar disorder, and recurrent DVT/PE with medication nonadherence secondary to cost. In the ER he underwent an extensive evaluation. CT of the chest revealed a large embolism involving the entire right pulmonary artery and its branches. He was admitted for pulmonary embolism and was started on a heparin drip. He was evaluated by cardiology and pulmonology. He underwent an echocardiogram which showed an ejection fraction of 50-55%, borderline right ventricular dilatation, normal RVSP. He was determined not to require EKOS. He was satting well on room air and was not tachycardic. His hemoglobin A1c came back at 13.9. He was doing well and was determined stable for discharge. Given his history of difficulty obtaining and taking medications on a regular basis was determined that the risks of insulin would outweigh the benefits given his elevated A1c. He had also been well controlled on metformin and on the back and the past. We discussed his elevated A1c and he was given prescriptions for metformin and jardiance on discharge. He is also given a prescription for an Eliquis starter pack. He will follow up with Dr. Howell next week, [facility], and Dr. Lazaro in 1 week. He was discharged in stable condition. Patient seen and examined at bedside. No chest pain, shortness breath, nausea, vomiting. Vital signs reviewed and stable. General: nontoxic, no distress, appears at stated age Derm: warm, dry Head: atraumatic, normocephalic, symmetric Eyes: EOMI, no lid lag, anicteric sclera Mouth: no lip lesion, mucus membranes moist Cardiovascular: S1S2 reg, no murmur, positive posterior tibial pulse bilateral, Lungs: CTA bilateral, no rhonchi, no rales , no accessory muscle use Abdominal: soft, nontender to palpation, no guarding, no appreciable organomegaly Ext: no gross muscle atrophy, no edema, no contractures Neuro: CN II-XI grossly intact, no focal neuro deficits Psych: Alert, oriented, appropriate affect A total of 42] minutes of time were spent preparing this complex discharge summary. Patient was discharged on 09/03/22. This dictation was prepared using [employer] recognition software. Though every attempt is made to correct errors during during dictation some may still exist. Patient Condition at Discharge: Stable Plan - Discharge Summary Discharge Rx Participant: Yes New Discharge Prescriptions: New Apixaban [Eliquis Starter Pack (for VTE)] 5 - 10 mg PO DIRECTED 30 Days #1 each metFORMIN HCL 1,000 mg PO AC-BID #60 tablet Apixaban [Eliquis] 5 mg PO BID #60 tab Empagliflozin [Jardiance] 10 mg PO DAILY #30 tablet Discharge Medication List Apixaban [Eliquis Starter Pack (for VTE)] 5 - 10 mg PO DIRECTED 30 Days #1 each 09/03/22 [Rx] Apixaban [Eliquis] 5 mg PO BID #60 tab 09/03/22 [Rx] Empagliflozin [Jardiance] 10 mg PO DAILY #30 tablet 09/03/22 [Rx] metFORMIN HCL 1,000 mg PO AC-BID #60 tablet 09/03/22 [Rx] Follow up Appointment(s)/Referral(s): Roshan Lazaro MD [STAFF PHYSICIAN] - 1 Week (Office will call with follow up appointment) None,Stated [Primary Care Provider] - 1-2 days [facility],Patrick Howard [NON-STAFF] - 10/14/22 9:00 am Romina Howell MD [STAFF PHYSICIAN] - 10/01/22 9:00 am Patient Instructions/Handouts: Pulmonary Embolism (DC) Activity/Diet/Wound Care/Special Instructions: Activity: as tolerated Diet: carb consistent Special Instructions: Return to ER with bruising, abnormal bleeding, blood in stool, blood in urine Discharge Disposition: HOME SELF-CARE
[2022-09-03 16:48] LABS: Glucose,Whole Blood 261 mg/dL (70-110)
== END 2022-09-03 18:22 | disposition home or self-care (01) | DRG 134 ==
LOC: EC 12:23 → 3SCARD 15:11
PROVIDERS: ADMIT Internal Medicine; ATTEND Internal Medicine
DX: I26.92 Saddle embolus of pulmonary artery without acute cor pulmonale (principal); E87.1 Hypo-osmolality and hyponatremia; I11.9 Hypertensive heart disease without heart failure; F31.9 Bipolar disorder, unspecified; E11.65 Type 2 diabetes mellitus with hyperglycemia; Z66 Do not resuscitate; E78.5 Hyperlipidemia, unspecified; F41.9 Anxiety disorder, unspecified; T45.516A Underdosing of anticoagulants, initial encounter; Z91.120 Patient's intentional underdosing of medication regimen due to financial hardship; Z86.711 Personal history of pulmonary embolism; Z86.718 Personal history of other venous thrombosis and embolism; Z59.01 Sheltered homelessness; Z59.5 Extreme poverty
CPT/HCPCS: 36415; 71046; 71275; 80048; 80053; 82150; 83036; 83690; 83735; 83880; 84484; 85025; 85379; 85610; 85730; 93005; 93306; 94760; 96365; 96366; 96375; 99291

== ENCOUNTER 2022-10-07 12:00 | Observation (INO) | payer OTHER ==
--- NOTE | 2022-10-07 13:25 | XR ---
EXAMINATION TYPE: XR chest 1V portable DATE OF EXAM: 10/07/2022 COMPARISON: 09/01/2022 HISTORY: Chest pain TECHNIQUE: Single frontal view of the chest is obtained. FINDINGS: There is no focal air space opacity, pleural effusion, or pneumothorax seen. The cardiac silhouette size is within normal limits. The osseous structures are intact. AC joint arthropathy. IMPRESSION: No acute process.
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
[2022-10-07 13:43] LABS: Basophils % (A) 0 %; Eosinophils # (A) 0.1 k/uL (0-0.7); Eosinophils % (A) 1 %; HCT 47.1 % (39.0-53.0); HGB 15.1 gm/dL (13.0-17.5); Lymphocytes # (A) 1.7 k/uL (1.0-4.8); Lymphocytes % (A) 30 %; MCH 28.5 pg (25.0-35.0); MCHC 32.1 g/dL (31.0-37.0); MCV 88.8 fL (80.0-100.0); Monocytes # (A) 0.4 k/uL (0-1.0); Monocytes % (A) 7 %; Neutrophils # (A) 3.3 k/uL (1.3-7.7); Neutrophils % (A) 59 %; Platelet Count 251 k/uL (150-450); RDW 14.6 % (11.5-15.5); WBC 5.6 k/uL (3.8-10.6)
[2022-10-07 14:00] LABS: ALT 15 U/L (4-49); AST 22 U/L (17-59); African American GFR (CKD) >90 (>60 ml/min/1.73 sqM); Albumin 4.3 g/dL (3.5-5.0); Alkaline Phosphatase 91 U/L (38-126); Anion Gap 12 mmol/L; Blood Urea Nitrogen 15 mg/dL (9-20); Calcium 9.3 mg/dL (8.4-10.2); Carbon Dioxide 25 mmol/L (22-30); Chloride 103 mmol/L (98-107); Glucose 133 mg/dL (74-99); Lipase 193 U/L (23-300); Magnesium 1.3 mg/dL (1.6-2.3); Non-African American GFR(CKD) >90 (>60 ml/min/1.73 sqM); Potassium 4.4 mmol/L (3.5-5.1); Sodium 140 mmol/L (137-145); Total Bilirubin 0.6 mg/dL (0.2-1.3); Total Protein 7.8 g/dL (6.3-8.2)
[2022-10-07 14:16] LABS: Prothrombin Time 10.6 sec (9.0-12.0)
[2022-10-07 15:10] LABS: Partial Thromboplastin Time 21.3 sec (22.0-30.0)
--- NOTE | 2022-10-07 16:00 | CT ---
EXAMINATION TYPE: CT angio chest CT DLP: 428.7 mGycm, Automated exposure control for dose reduction was used. DATE OF EXAM: 10/07/2022 3:47 PM COMPARISON: CTA chest 09/01/2022, 06/24/2019, chest radiograph 10/07/2022. CLINICAL INDICATION:Male, 61 years old with history of cp; Chest pain and blurry vision. TECHNIQUE/CONTRAST: CTA scan of the thorax is performed with IV Contrast, patient injected with 83ml mL of Isovue 300, pu lmonary embolism protocol. MIP images are created and reviewed. FINDINGS: Pulmonary Artery: Redemonstration of large pulmonary embolism involving majority of the right main pu lmonary artery extending into the segmental subsegmental pulmonary artery branches. There is some tra ce extension of the right embolism into the left main pulmonary artery which is unchanged from prior exam. No new left-sided pulmonary emboli identified. Main pulmonary artery is mildly prominent size m easuring up to 3.1 cm. There is some reflux of contrast into the IVC. Lungs/Pleura: No pleural effusion or pneumothorax. Similar reticular nodular density within the right lung base (series 106, image 123). Airway: Large airways are patent. Heart: Heart is within normal limits for size. No pericardial effusion. Vasculature: No evidence of aortic aneurysm. Mediastinum: No gross evidence of adenopathy. Musculoskeletal: No acute osseous abnormalities Soft Tissues: Unremarkable. Lower neck: No significant findings. Upper Abdomen: No sonographic findings.. IMPRESSION: 1. No significant change in large pulmonary embolus involving majority of the right main pulmonary a rtery extending into the segmental and subsegmental pulmonary arteries. There is similar minimal exte nsion to the left main pulmonary artery. No overt evidence for right heart strain. 2. Similar reticular nodular density within the right lung base dating back to 2019 exam which may r epresent some scarring.
[2022-10-07] MEDS ORDERED: MORPHINE SULFATE 4 MG/ML SYRINGE IV PRN (17:41)
[2022-10-07] MEDS ORDERED: NALOXONE 0.4 MG/ML 1 ML VIAL IV PRN (17:41)
[2022-10-07] MEDS: SODIUM CHLORIDE 0.9% 1,000 ML IV SCH (18:54)
[2022-10-08] MEDS ORDERED: ACETAMINOPHEN TAB 325 MG TAB PO PRN (09:30)
[2022-10-08] MEDS ORDERED: MAGNESIUM OXIDE 400 MG TAB PO SCH (10:00)
[2022-10-08 10:06] LABS: Glucose,Whole Blood 134 mg/dL (70-110)
[2022-10-08] MEDS: SODIUM CHLORIDE 0.9% 1,000 ML IV SCH ×2 (10:39→11:11)
[2022-10-08] MEDS: LOSARTAN 50 MG TAB PO SCH (10:40)
[2022-10-08] MEDS: PIOGLITAZONE 30 MG TAB PO SCH (10:40)
[2022-10-08] MEDS: metFORMIN 500 MG TAB PO SCH ×2 (10:40→16:56)
[2022-10-08] MEDS: ATORVASTATIN 20 MG TAB PO SCH (10:40)
[2022-10-08] MEDS: FAMOTIDINE 20 MG TAB PO SCH (10:41)
[2022-10-08] MEDS: APIXABAN 5 MG TAB PO SCH ×2 (10:41→20:19)
--- NOTE | 2022-10-08 10:58 | US ---
EXAMINATION TYPE: US carotid duplex BILAT DATE OF EXAM: 10/08/2022 COMPARISON: 06/25/2019 CLINICAL INDICATION: Male, 61 years old with history of blurred vision; TECHNIQUE: Carotid duplex ultrasound examination. Indirect Doppler criteria was utilized. FINDINGS: EXAM MEASUREMENTS: RIGHT: Peak Systolic Velocity (PSV) cm/sec ----- Right CCA: 64.5 ----- Right ICA: 52.3 ----- Right ECA: 55.7 ICA/CCA ratio: 0.8 RIGHT: End Diastole cm/sec ----- Right CCA: 11.3 ----- Right ICA: 16.5 ----- Right ECA: 0.0 LEFT: Peak Systolic Velocity (PSV) cm/sec ----- Left CCA: 92.4 ----- Left ICA: 68.8 ----- Left ECA: 56.6 ICA/CCA ratio: 0.7 LEFT: End Diastole cm/sec ----- Left CCA: 13.1 ----- Left ICA: 20.0 ----- Left ECA: 0.0 VERTEBRALS (direction of flow): Right Vertebral: Antegrade Left Vertebral: Antegrade Rhythm: Normal LOG SNAKER NOTES: No significant stenosis seen. Shadowing plaque noted left bulb. IMPRESSION: Atherosclerotic plaque with no significant hemodynamic stenosis. Criteria for Assigning % of Stenosis / Diameter reduction (Estimation based on the indirect measurements of the internal carotid artery velocities (ICA PSV). 1. Normal (no stenosis)=ICA PSV < 125 cm/s: ratio < 2.0: ICA EDV<40 cm/s. 2. Less than 50% stenosis=ICA PSV < 125 cm/s: ratio < 2.0: ICA EDV<40 cm/s. 3. 50 to 69% stenosis=ICA PSV of 125 to 230 cm/s: ration 2.0 ? 4.0: ICA EDV 40-100 cm/s. 4. Greater than 70% stenosis to near occlusion= ICA PSV > 230 cm/s: ratio > 4.0: ICA EDV > 100 cm/s. 5. Near occlusion= ICA PSV velocities may be low or undetectable: variable ratio and ICA EDV. 6. Total occlusion=unable to detect flow.
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
[2022-10-08] MEDS ORDERED: Magnesium Replacement Protocol 1 EACH MISC MISCELLANE PRN (11:34)
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
[2022-10-08] MEDS: MAGNESIUM SULFATE-D5W PMX 1 GM in DEXTROSE/WATER 1 100ML.BAG IVPB SCH ×2 (12:13→13:10)
[2022-10-08 16:46] LABS: Glucose,Whole Blood 169 mg/dL (70-110)
[2022-10-08 20:13] LABS: Glucose,Whole Blood 152 mg/dL (70-110)
[2022-10-09] MEDS: SODIUM CHLORIDE 0.9% 1,000 ML IV SCH (00:30)
[2022-10-09 02:03] VITALS: RESP 16
[2022-10-09 06:09] LABS: Glucose,Whole Blood 149 mg/dL (70-110)
[2022-10-09] MEDS: FAMOTIDINE 20 MG TAB PO SCH (08:42)
[2022-10-09] MEDS: LOSARTAN 50 MG TAB PO SCH (08:42)
[2022-10-09] MEDS: metFORMIN 500 MG TAB PO SCH (08:43)
[2022-10-09] MEDS: APIXABAN 5 MG TAB PO SCH (08:43)
[2022-10-09] MEDS: ATORVASTATIN 20 MG TAB PO SCH (08:43)
[2022-10-09] MEDS: PIOGLITAZONE 30 MG TAB PO SCH (08:45)
[2022-10-09] MEDS ORDERED: METOPROLOL TARTRATE 25 MG TAB PO SCH (09:00)
[2022-10-09] MEDS ORDERED: MAGNESIUM OXIDE 400 MG TAB PO SCH (09:00)
[2022-10-09] MEDS ORDERED: DEXTROSE 50% SYRINGE 50 ML IVP PRN ×2 (09:39)
[2022-10-09 10:27] LABS: HCT 45.9 % (39.0-53.0); HGB 14.5 gm/dL (13.0-17.5); MCH 28.2 pg (25.0-35.0); MCHC 31.7 g/dL (31.0-37.0); MCV 89.1 fL (80.0-100.0); Mean Platelet Volume 7.1; Platelet Count 249 k/uL (150-450); RBC 5.15 m/uL (4.30-5.90); RDW 14.8 % (11.5-15.5); WBC 5.9 k/uL (3.8-10.6)
[2022-10-09 10:45] LABS: African American GFR (CKD) >90 (>60 ml/min/1.73 sqM); Anion Gap 9 mmol/L; Blood Urea Nitrogen 10 mg/dL (9-20); Calcium 8.9 mg/dL (8.4-10.2); Carbon Dioxide 23 mmol/L (22-30); Chloride 103 mmol/L (98-107); Glucose 157 mg/dL (74-99); Magnesium 1.4 mg/dL (1.6-2.3); Non-African American GFR(CKD) >90 (>60 ml/min/1.73 sqM); Potassium 4.1 mmol/L (3.5-5.1); Sodium 135 mmol/L (137-145)
--- NOTE | 2022-10-09 11:06 | P.PN ---
Subjective Progress Note Date: 10/09/22 HISTORY OF PRESENT ILLNESS: This is a 61-year-old male with a past medical history significant for pulmonary embolism and hyperlipidemia. 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 We have been asked to see the patient in consultation for chest pain. Patient examined at the bedside. Patient states he was having chest pain yesterday that would last for a couple minutes and then went to go away on its own. He also reports having blurred vision. At time of examination he denies any chest pain or pressure. He denies any shortness of breath. The patient states he has been compliant with his medications on an outpatient basis. Vital signs are currently stable. * EKG reveals sinus tachycardia with heart rate of 110. No signs of acute ischemia. * Chest CTA: No significant change involving large pulmonary embolism involving the majority of the right main pulmonary artery extending into the segmental and subsegmental pulmonary arteries. No evidence of right heart strain. * Chest xray negative for acute process * Laboratory data: WBC 5.6. Hemoglobin 15.1. Platelet count 251. D-dimer 0.92. Sodium 140. Potassium 4.4. BUN 15. Creatinine 0.72. Troponin negative 3. ProBNP 299. * Current home cardiac medications include Lipitor 20 mg daily and Eliquis 5mg BID * Most recent echocardiogram obtained in August 2022 reveals ejection fraction 50-55%,, normal RVSP, borderline right ventricular dilation. 10/09/2022 Patient examined this morning at the bedside. Patient denies chest pain or pressure. He denies shortness of breath. Blood pressure is stable. Patient is slightly tachycardic this morning with heart rate in the low 100s. Carotid D oppler obtained revealing no significant stenosis. PHYSICAL EXAM: VITAL SIGNS: Reviewed. GENERAL: Well-developed in no acute distress. HEENT: Head is normocephalic. Pupils are equal, round. Sclerae anicteric. Mucous membranes of the mouth are moist. Neck supple. No JVD or thyromegaly LUNGS: Respirations even and unlabored. Lungs essentially clear to auscultation bilaterally. HEART: Regular rate and rhythm. S1 and S2 heard. ABDOMEN: Soft. Nondistended. Nontender. EXTREMITIES: Normal range of motion. No clubbing or cyanosis. Peripheral pulses intact. No lower extremity edema NEUROLOGIC: Awake and alert. Oriented x 3. ASSESSMENT: Chest pain, noncardiac, troponin negative 3 Known bilateral pulmonary embolism Hypertension, uncontrolled PLAN: Continue current cardiac medications Add metoprolol tartrate 25 mg twice a day Continue to monitor blood pressure Patient is currently stable for discharge from a cardiac standpoint Further recommendations pending patient's course Nurse practitioner note has been reviewed by physician. Signing provider agrees with the documented findings, assessment, and plan of care. Objective - Vital Signs Vital signs: Vital Signs Temp 97.9 F 10/09/22 08:50 Pulse 104 H 10/09/22 08:50 Resp 16 10/09/22 08:50 BP 158/97 10/09/22 08:50 Pulse Ox 95 10/09/22 08:50 FiO2 Intake & Output 10/08/22 10/09/22 10/09/22 18:59 06:59 18:59 Intake Total 600 118 Balance 600 118 Weight 86.183 kg 86.5 kg Intake: Oral 600 118 Other: # Voids 1 - Labs CBC & Chem 7: 10/09/22 09:48 10/09/22 09:48 Labs: Abnormal Lab Results - Last 24 Hours (Table) 10/08/22 10/08/22 10/09/22 Range/Units 16:43 20:12 05:58 Sodium (137-145) mmol/L Glucose (74-99) mg/dL POC Glucose (mg/dL) 169 H 152 H 149 H (70-110) mg/dL Magnesium (1.6-2.3) mg/dL 10/09/22 Range/Units 09:48 Sodium 135 L (137-145) mmol/L Glucose 157 H (74-99) mg/dL POC Glucose (mg/dL) (70-110) mg/dL Magnesium 1.4 L (1.6-2.3) mg/dL
[2022-10-09 11:39] LABS: Glucose,Whole Blood 145 mg/dL (70-110)
[2022-10-09] MEDS ORDERED: INSULIN ASPART (NovoLOG) 100 UNIT/ML VIAL SQ SCH (12:30)
--- NOTE | 2022-10-09 12:50 | CA ---
Transthoracic Echo Report Name: Hema Umana Age: 61 Gender: M : 1960 Exam Date: 10/09/2022 11:23 Exam Location: [facility] Ht (in): 70 Wt (lb): 190 Ordering Physician: Epifanio Gonzalez DO Attending/Referring Phys: [id number], Carlos [employer] Ann Francis RDCS Procedure CPT: Indications: PE Cardiac Hx: Technical Quality: Fair Contrast 1: Total Dose (mL): Contrast 2: Total Dose (mL): MEASUREMENTS (Male / Female) Normal Values 2D ECHO LV Diastolic Diameter PLAX 3.1 cm 4.2 - 5.9 / 3.9 - 5.3 cm LV Systolic Diameter PLAX 2.3 cm IVS Diastolic Thickness 1.4 cm 0.6 - 1.0 / 0.6 - 0.9 cm LVPW Diastolic Thickness 1.4 cm 0.6 - 1.0 / 0.6 - 0.9 cm LV Relative Wall Thickness 0.9 DOPPLER TR Peak Velocity 293.8 cm/s TR Peak Gradient 34.5 mmHg Right Ventricular Systolic Press 39.5 mmHg FINDINGS Left Ventricle Limited study. Mildly increased left ventricular wall thickness. Left ventricular cavity size normal. Normal left ventricular systolic function with no obvious regional wall motion abnormalities. Left ventricular ejection fraction is estimated at 50-55 %. Right Ventricle TAPSE 23 mm. Dilated right ventricle with hypokinesis and moderate pulmonary hypertension Right Atrium Left Atrium Mitral Valve Aortic Valve Tricuspid Valve Pulmonic Valve Pericardium No pericardial effusion. Aorta CONCLUSIONS Technically limited study. 1. Normal ventricle size and systolic function 2. Dilated right ventricle with mild pulmonary hypertension Previewed by: Dr. Michelle Holliday MD (Electronically Signed) Final Date: 09 Oct 2022 12:50
[2022-10-09 13:40] VITALS: BP 117/86; PULSE 78; TEMP 98
--- NOTE | 2022-10-10 22:50 | P.DS ---
Providers Date of admission: 10/07/22 17:41 Attending physician: Riana Melchor Consults: 10/07/22 17:41 Consult Physician Routine Consulting Provider: Paty Gaines Consult Reason/Comments: knownPE,hypoxia Do you want consulting provider notified?: Yes Consult Physician Routine Consulting Provider: Michelle Holliday Consult Reason/Comments: cp Do you want consulting provider notified?: Yes Primary care physician: Stated None Hospital Course: Final Diagnosis Chest pain, atypical with no evidence for acute coronary syndrome Pulmonary embolism, Bilateral, affecting majority of the right main pulmonary artery anticoagulated with eliquis Acute hypoxic respiratory failure improved and weaned to room air Hypertension, uncontrolled on admission Blurry vision possibly from cataracts patient reports no worsening vision recently Hypomagnesemia Diabetes mellitus type 2 blood glucose appears controlled History of DVT lower extremity History of depression History of alcohol abuse in the past Full Code Discharge Disposition Patient is stable for discharge home. Cleared by vascular and cardiology services. Patient will be establishing care at the [facility] in [place] and has an appointment made for october 31. Recommending to follow up with pulmonary and cardiology on discharge. Patient plans to follow up with his opthomologist to further discuss cataract surgery. Recommend to repeat BMP and magnesium in 2 to 3 days. Patient has been set up with a hotel on discharge by family and is given information on shelters and community resources. Patient has been started on metoprolol and losartan. Hospital Course This is a pleasant 61-year-old male with medical history significant for hypertension, diabetes mellitus type 2, DVT. Patient was recently hospitalzied and diagnosed with a large pulmonary embolism that involved the entire right pulmonary artery and the branches. Patient was started on eliquis and discharged home. Patient does not follow with a primary care provider. He reports back to the emergency room with complaints of shortness of breath and midsternal chest pain nonradiating that began yesterday morning. The chest pain had spontaneously resolved and patient did state it happened when he awoke from sleeping. He also reports blurry vision which has been ongoing for the last 2 years. He had a routine eye exam done a few years ago and states he was told he possibly had developing cataracts. He has had no worsening vision recently and states he plans to follow up on discharge for this. Chest CTA shows no significant change in the large pulmonary embolism involving the majority of the right main pulmonary artery extending into the second mental and subsegmental pulmonary arteries there is a similar minimal extension to the left main pulmonary artery. There is no overt evidence for right heart strain. It is a similar reticular nodular density within the right lung base dating back to 2019 which may represent some scarring. Patient had a carotid Doppler done which is showing atherosclerotic plaque with no significant hemodynamic stenosis. Initial blood work d-dimer that is elevated at 0.92, blood glucoses in the 130s. Magnesium is 1.4 which is being replaced. Troponin levels negative 3 and a proBNP is 299. Pressure is elevated 150 systolic over 110s diastolic. Patient is also tachycardic on admission. He was hypoxic with oxygen saturation of 87% on room air. Follow up limited echocardiogram reveals normal LV size and systolic function with dilated right ventricle with mild pulmonary hypertension. Patient was started on losartan and metoprolol. Vascular services recommending no surgical intervention to continue on eliquis on discharge. Heart rate improved to 78 and blood pressure is down to 117/86. Patient has been weaned to room air. Denying shortness of breath. Chest pain has resolved. Patient is alert x 3 and no focal deficits. He will be discharged home with the above mentioned recommendations. Please see medication reconciliation for a list of current medications. Thank you for allowing us to participate in the care of this patient. The impression and plan of care has been dictated by Paty Christiansen, Nurse Practitioner as directed. Dr. Little MD I have performed a history and physical examination and medical decision making of this patient, discussed the same with the dictator, and agree with the dictators assessment and plan as written, documented as a scribe. Based on total visit time, I have performed more than 50% of this visit. Patient Condition at Discharge: Stable Plan - Discharge Summary Discharge Rx Participant: Yes New Discharge Prescriptions: New Losartan [Cozaar] 50 mg PO DAILY #30 tab Metoprolol Tartrate [Lopressor] 25 mg PO BID #60 tab Magnesium Oxide [Mag-Ox] 400 mg PO DAILY #15 tab Famotidine [Pepcid] 20 mg PO DAILY #30 tab Continue metFORMIN HCL 1,000 mg PO AC-BID #60 tablet Ergocalciferol (Vitamin D2) [Drisdol (50,000 Iu)] 1,250 mcg PO SA Atorvastatin [Lipitor] 20 mg PO DAILY Pioglitazone HCl 30 mg PO DAILY Apixaban [Eliquis] 5 mg PO BID #60 tab Discharge Medication List metFORMIN HCL 1,000 mg PO AC-BID #60 tablet 09/03/22 [Rx] Atorvastatin [Lipitor] 20 mg PO DAILY 10/07/22 [History] Ergocalciferol (Vitamin D2) [Drisdol (50,000 Iu)] 1,250 mcg PO SA 10/07/22 [History] Pioglitazone HCl 30 mg PO DAILY 10/07/22 [History] Apixaban [Eliquis] 5 mg PO BID #60 tab 10/09/22 [Rx] Famotidine [Pepcid] 20 mg PO DAILY #30 tab 10/09/22 [Rx] Losartan [Cozaar] 50 mg PO DAILY #30 tab 10/09/22 [Rx] Magnesium Oxide [Mag-Ox] 400 mg PO DAILY #15 tab 10/09/22 [Rx] Metoprolol Tartrate [Lopressor] 25 mg PO BID #60 tab 10/09/22 [Rx] Follow up Appointment(s)/Referral(s): Roshan Lazaro MD [STAFF PHYSICIAN] - 1 Week (please call to schedule: tell them you were discharged from [facility] 10/09. ) None,Stated [Primary Care Provider] - 1-2 days [facility] [NON-STAFF] - (please call to schedule: tell them you were discharged from [facility] 10/09. ) Romina Howell MD [STAFF PHYSICIAN] - 1 Week (please call to schedule: tell them you were discharged from [facility] 10/09. ) Ambulatory/Diagnostic Orders: Basic Metabolic Panel [LAB.AMB] Time Frame: 3 Days, Location: None Selected Magnesium [LAB.AMB] Time Frame: 3 Days, Location: None Selected Activity/Diet/Wound Care/Special Instructions: Follow up with your eye doctor Continue on eliquis, follow up with cardiology and pulmonary per previous discharge recommendations Keep your appointment with the [facility] Repeat labs in 2 to 3 days Discharge/Stand Alone Forms: [facility] Shelters, Who Do I Call?, Community Resources, Area PCPs Discharge Disposition: HOME SELF-CARE
== END 2022-10-09 15:17 | disposition home or self-care (01) ==
LOC: EC 12:00 → INTOOBSV 17:41 → 3SCARD 17:41
PROVIDERS: ADMIT Hospitalist; ATTEND Hospitalist
DX: R07.89 Other chest pain (principal); I27.82 Chronic pulmonary embolism; J96.01 Acute respiratory failure with hypoxia; M12.819 Other specific arthropathies, not elsewhere classified, unspecified shoulder; H53.8 Other visual disturbances; R00.0 Tachycardia, unspecified; E83.42 Hypomagnesemia; I11.9 Hypertensive heart disease without heart failure; F12.90 Cannabis use, unspecified, uncomplicated; E11.9 Type 2 diabetes mellitus without complications; E78.5 Hyperlipidemia, unspecified; F32.A Depression, unspecified; Z86.718 Personal history of other venous thrombosis and embolism; Z79.899 Other long term (current) drug therapy; Z79.84 Long term (current) use of oral hypoglycemic drugs; Z82.3 Family history of stroke; Z80.9 Family history of malignant neoplasm, unspecified; Z79.01 Long term (current) use of anticoagulants
CPT/HCPCS: 96361 ×2; 96365; 99291; 36415; 93005 ×2; 93308; 85379; 83880; 80053; 80048; 84443; 83690; 83735 ×3; 84484; 85025; 85027; 85610; 85730; 71045; 93880; 71275; G0378 ×3; J3475; Q9967

== ENCOUNTER → 2022-10-10 | Outpatient (CLI) | payer OTHER ==
[2022-10-10 15:46] LABS: African American GFR (CKD) 92.4 (60.0-200.0); Anion Gap 12.2 mmol/L (10.00-18.00); BUN/Creat Ratio 9.9 Ratio (12.00-20.00); Blood Urea Nitrogen 9.9 mg/dL (9.0-27.0); Calcium 9.9 mg/dL (8.7-10.3); Carbon Dioxide 23.8 mmol/L (20.0-27.5); Magnesium 1.5 mg/dL (1.5-2.4); Non-African American GFR(CKD) 79.7 (60.0-200.0); Potassium 4.9 mmol/L (3.5-5.5)
== END | disposition home or self-care (01) ==
LOC: LABWHC1 10:18
PROVIDERS: ATTEND Nurse Practitioner Family
DX: E87.1 Hypo-osmolality and hyponatremia (principal); E83.42 Hypomagnesemia
CPT/HCPCS: 36415; 80048; 83735

== ENCOUNTER → 2022-10-25 | Outpatient (CLI) | payer OTHER ==
--- NOTE | 2022-10-25 10:58 | MR ---
EXAMINATION TYPE: MR Prostate wo/w con DATE OF EXAM: 10/25/2022 COMPARISON: None. INDICATION: Elevated PSA, no biopsy PSA: 6.6 ng/ml on September 20, 2022 Recent Biopsy and Date: None. Pathology Report (If Applicable): n/a TECHNIQUE: Examination was performed using a 3T MRI without an endorectal coil. Multiparametric imaging was perf ormed with T2 mutliplanar sequences, axial diffusion weighted imaging and dynamic contrast enhanced i maging, utilizing 9 mL intravenous Gadavist gadolinium contrast. FINDINGS: PROSTATE VOLUME: 2.6 cm SI x 3.3 cm AP x 4.0 cm LR Vol= 17.97 cc PSA DENSITY: 0.37 ng/ml/cc Normal-sized prostate is seen. Area of slight indistinct hypointense signal on ADC mapping right rafael pheral zone laterally. No significant diminished signal on ADC. No areas of suspicious increased sign al on diffusion-weighted imaging. Smaller transitional zone with heterogeneity. No definitive suspici ous T2 hypointense areas. Prostate capsule is preserved. Right seminal vesicle is slightly more bulky. There is a smaller left seminal vesicle with oval circumscribed T2 hypointense lesion along the superior aspect measuring 2.0 x 1.1 cm coronal image 17 possible abnormal enlarged lymph node corresponding to axial image 27. Bladder is poorly distended with wall thickening up to 2.0 cm posterior superior aspect coronal image 3. Mild to moderate trabeculation is present. No free fluid in the pelvis. No suspicious bowel dilat ation. Benign-appearing bilateral groin lymph nodes. No groin hernia or suspicious adenopathy. Muscle bulk is maintained. Osseous structures are intact. IMPRESSION: Normal-sized prostate. A focus of clinically significant cancer is not definitively identified in the prostate gland. Unusua l case with possible abnormal lymph node in the pelvis along superior aspect of the left seminal vesi narciso. Advise CT pelvis follow-up to further evaluate. Unusual also that there is abnormal wall thicken ing in the poorly distended bladder. Correlate clinically to exclude acute cystitis as prostate is no rmal in size. Highest Assessment Category: 2 MRI Stage: T0 N0 M0 based on review of pelvic images. False negative rates for MRI range from 5-20% depending on risk profile. Assessment Categories: 1 ? Very low (clinically significant cancer is highly unlikely to be present) 2 ? Low (clinically significant cancer is unlikely to be present) 3 ? Intermediate (the presence of clinically significant cancer is equivocal) 4 ? High (clinically significant cancer is likely to be present) 5 ? Very high (clinically significant cancer is highly likely to be present)
== END | disposition home or self-care (01) ==
LOC: RADMRIMAIN 09:23
PROVIDERS: ATTEND Urology
DX: N32.89 Other specified disorders of bladder (principal); R97.20 Elevated prostate specific antigen [PSA]
CPT/HCPCS: 72197; A9585